=== PATIENT | male | born 1940 | race American Indian/Alaskan Native ===

== ENCOUNTER 2016-10-29 10:11 | Inpatient (IN) | payer MEDICARE, BC ==
[2016-10-29] MEDS ORDERED: Famotidine 20mg/50ml 20 MG/50 ML BAG IV STA (10:33)
--- NOTE | 2016-10-29 11:01 | RAD ---
HISTORY: cough COMPARISON: 04/25/2016. FINDINGS: The right-sided dialysis catheter terminates in the right atrium. LUNGS: The lungs are clear. PLEURA: No significant pleural effusion identified, no pneumothorax apparent. CARDIOVASCULAR: The heart is normal in size. Atherosclerotic aortic arch calcifications are present. . OSSEOUS STRUCTURES: No significant abnormalities. VISUALIZED UPPER ABDOMEN: Normal. OTHER FINDINGS: There is chronic elevation of the right hemidiaphragm. Surgical clips in the right upper quadrant are related to prior cholecystectomy. IMPRESSION: No active pulmonary disease.
--- NOTE | 2016-10-29 11:05 | ED PDOC ---
Arrival/HPI - General Chief Complaint: GI Problem Time Seen by Provider: 10/29/16 10:17 Historian: Patient - History of Present Illness Narrative History of Present Illness (Text): 10/29/16 11:10 A 76 year old male, whose past medical history includes GERD, presents to the emergency department after full dialysis treatment today complaining of abdominal pain, nausea and one episode of vomiting (non-bilious, non-bloody). Patient currently does not have abdominal pain or feel nauseous. Patient denies any other complaints at this time. Symptom Onset: Sudden Symptom Course: Improving Activities at Onset: Other (dialysis) Modifying Factors (Text): none Past Medical History - Provider Review Nursing Documentation Reviewed: Yes - Infectious Disease Hx of Infectious Diseases: None - Reproductive Currently : No - Cardiac Hx Cardiac Disorders: Yes Hx Hypertension: Yes - Pulmonary Hx Respiratory Disorders: Yes Hx Chronic Obstructive Pulmonary Disease (COPD): Yes - Neurological Hx Neurological Disorder: Yes HX Cerebrovascular Accident: Yes (L side hemiparesis) - HEENT Hx HEENT Disorder: No - Renal Hx Renal Disorder: Yes Date of Last Dialysis Treatment: 10/29/16 Hx Renal Failure: Yes (ESRD, CKD) - Endocrine/Metabolic Hx Endocrine Disorders: Yes Hx Diabetes Mellitus Type 2: Yes - Hematological/Oncological Hx Blood Disorders: Yes Hx Anemia: Yes - Integumentary Hx Dermatological Disorder: No - Musculoskeletal/Rheumatological Hx Musculoskeletal Disorders: Yes Hx Arthritis: Yes (Spinal Arthritis) - Gastrointestinal Hx Gastrointestinal Disorders: Yes Hx Gall Bladder Disease: Yes (Cholecystectomy) - Genitourinary/Gynecological Hx Genitourinary Disorders: No - Psychiatric Hx Psychophysiologic Disorder: No Hx Substance Use: No - Surgical History Hx Appendectomy: Yes Hx Carotid Endarterectomy: Yes (bilat) Hx Cholecystectomy: Yes Hx Coronary Stent: Yes Other/Comment: LEFT aka - Anesthesia Hx Anesthesia: Yes Hx Anesthesia Reactions: No Hx Malignant Hyperthermia: No - Suicidal Assessment Feels Threatened In Home Enviroment: No Family/Social History - Physician Review Nursing Documentation Reviewed: Yes Family/Social History: No Known Family HX Smoking Status: Former Smoker Hx Alcohol Use: No Hx Substance Use: No Allergies/Home Meds Allergies/Adverse Reactions: Allergies No Known Allergies Allergy (Verified 04/25/16 14:43) Home Medications: Home Meds Medication Instructions Recorded Confirmed B Complex W-C No.20/Folic Acid 1 sgl PO DAILY 10/29/16 10/29/16 [Renal Caps] RX: Calcium Acetate [Phoslo] 667 mg PO TID 10/29/16 10/29/16 RX: Pantoprazole [Protonix EC Tab] 20 mg PO DAILY 10/29/16 10/29/16 Review of Systems - Physician Review All systems were reviewed & negative as marked: Yes Physical Exam - Physical Exam Narrative Physical Exam (Text): 10/29/16 11:05- Review of Systems Constitutional: Normal. absent: Fatigue, Weight Change, Fevers Eyes: Normal ENT: Normal Respiratory: Normal absent: SOB, Cough, Sputum Cardiovascular: Normal absent: Chest pain, Palpitations, Syncope Gastrointestinal: Present: abdominal pain, nausea, vomiting absent: Diarrhea, Nausea Musculoskeletal: Normal. absent: Arthralgias, Back Pain, Neck Pain Skin: Normal Neurological: Normal absent: Focal Weakness Endocrine: Normal Hemo/Lymphatic: Normal Psychiatric: Normal - Physical exam Patient appears age appropriate, speaking full sentences without difficulty - Systems Exam Head: Present: Atraumatic, Normocephalic Pupils: Present: PERRL Extraocular Muscles: Present: EOMI Conjunctiva: Present: Normal Mouth: Present: Moist Mucous Membranes Neck: Present: Normal Range of Motion. No: MIDLINE TENDERNESS, Paraspinal Tenderness Respiratory/Chest: Present: Clear to Auscultation, Good Air Exchange. No: Respiratory Distress, Accessory Muscle Use, Tachypnic Cardiovascular: Present: Regular Rate and Rhythm, Normal S1, S2, Peripheral Pulses Present. No: Murmurs Abdomen: Present: Normal Bowel Sounds, No: Tenderness, Peritoneal Signs, Rebound, Guarding, Distention Back: Present: Normal Inspection. No: Midline Tenderness, Paraspinal Tenderness Upper Extremity: Present: Normal Inspection. No: Cyanosis, Edema Lower Extremity: Present: Normal Inspection. No: Edema Neurological: Present: GCS=15, Speech Normal, cranial nerves II through XII fully intact with no cerebellar abnormality, neuro-sensory fully intact. No focal neurological deficits. Skin: Present: Warm, Dry, Normal Color. No: Rashes Lymphatic: Present: OX3, NI, NC Psychiatric: Present: Alert, Oriented x 3, Normal Insight, Normal Concentration Vital Signs Reviewed: Yes Vital Signs Temp Pulse Resp BP Pulse Ox 10/29/16 14:02 64 18 142/69 99 10/29/16 12:34 61 18 144/71 99 10/29/16 11:36 61 16 154/82 H 98 10/29/16 10:40 98.8 F 62 18 147/62 99 Temperature: Afebrile Blood Pressure: Normal Pulse: Regular Respiratory Rate: Normal Appearance: Positive for: Well-Appearing, Non-Toxic, Comfortable Pain Distress: None Mental Status: Positive for: Alert and Oriented X 3 Medical Decision Making ED Course and Treatment: 10/29/16 10:52 Impression: A 76 year old male with abdominal pain and vomiting. No acute findings on physical exam. Plan: -- EKG -- CT abd/pelvis -- chest xray -- labs -- Pepcid, Zofran -- Reassess and disposition Prior Visits: Notes and results from previous visits were reviewed. Patient last reported to the emergency department on 04/25/16 for evaluation of worsening ulcers, patient was hospitalized. Patient was discharged on 05/02/16. Progress Notes: chest xray: Creator : Kalie Caraballo MD 10/29/2016 11:02 IMPRESSION: No active pulmonary disease. 10/29/16 12:28 Patient's EKG shows 59 bpm, sinus bradycardia, no ST segment elevations, T-wave inversions in lateral leads. No significant change versus 02/29/16. CT abd/pelvis Creator : Deny Adams MD 10/29/2016 12:46 IMPRESSION: No acute findings. 10/29/16 15:05 lipase elevated pt with no abd pain at this time pt states he has no PMD [place] [facility] [place] Helms, accepted admission to his service pt aware of and agrees with plan Deny Mora Dr., Dr., MD PROCEDURE: CT Abdomen and Pelvis without intravenous contrast HISTORY: n/v/abd pain COMPARISON: None. TECHNIQUE: Without contrast.. Contrast Dose: Radiation dose: Total exam DLP = 353 mGy-cm. This CT exam was performed using one or more of the following dose reduction techniques: Automated exposure control, adjustment of the mA and/or kV according to patient size, and/or use of iterative reconstruction technique. FINDINGS: LOWER THORAX: Unremarkable. LIVER: Unremarkable. No gross lesion or ductal dilatation. GALLBLADDER AND BILE DUCTS: Gallbladder removed PANCREAS: Unremarkable. No gross lesion or ductal dilatation. SPLEEN: Unremarkable. ADRENALS: Unremarkable. No mass. KIDNEYS AND URETERS: Unremarkable. No hydronephrosis. No solid mass. VASCULATURE: There is heavy calcification of the aorta and aortic branches BOWEL: Unremarkable. No obstruction. No gross mural thickening. APPENDIX: Unremarkable. Normal appendix. PERITONEUM: Unremarkable. No free fluid. No free air. LYMPH NODES: Unremarkable. No enlarged lymph nodes. BLADDER: Unremarkable. REPRODUCTIVE: Unremarkable. BONES: No acute fracture. OTHER FINDINGS: None. IMPRESSION: No acute findings - Lab Interpretations Lab Results: 10/29/16 11:10 10/29/16 11:10 Lab Results 10/29/16 11:10: Lipase 1809 H 10/29/16 11:10: PT 11.7, INR 1.08, APTT 29.3 10/29/16 11:10: Sodium 141, Potassium 4.1, Chloride 98, Carbon Dioxide 32, Anion Gap 15, BUN 26 H, Creatinine 4.4 H, Est GFR ( Amer) 16, Est GFR ( Non-Af Amer) 13, Random Glucose 107, Calcium 9.6, Total Bilirubin 1.4 H, AST 303 H, ALT 149 H, Alkaline Phosphatase 102, Lactate Dehydrogenase 987 H, Total Creatine Kinase 72, Troponin I 0.03, Total Protein 7.8, Albumin 4.3, Globulin 3.5, Albumin/Globulin Ratio 1.2 10/29/16 11:10: WBC 9.9, RBC 3.37 L, Hgb 11.3 L, Hct 33.8 L, MCV 100.3, MCH 33.5 , MCHC 33.4, RDW 13.9, Plt Count 243, MPV 9.7, Gran % 79.0 H, Lymph % (Auto) 11.3 L, [place] % (Auto) 7.4 H, Eos % (Auto) 2.0, Baso % (Auto) 0.3, Gran # 7.83 H , Lymph # 1.1 L, [place] # 0.7 H, Eos # 0.2, Baso # 0.03 I have reviewed the lab results: Yes - RAD Interpretation Radiology Orders: 10/29/16 10:32 ABD & PELVIS W/O PO OR IV CONT [CT] Stat 10/29/16 10:33 CHEST PORTABLE [RAD] Stat - EKG Interpretation Interpreted by ED Physician: Yes Type: 12 lead EKG - Medication Orders Current Medication Orders: Discontinued Medications Famotidine (Pepcid 20mg/50ml Premix) 20 mg in 50 mls @ 100 mls/hr IV STAT STA Stop: 10/29/16 11:02 Last Admin: 10/29/16 11:10 Dose: 100 mls/hr Ondansetron HCl (Zofran Inj) 4 mg IVP STAT STA Stop: 10/29/16 10:34 Last Admin: 10/29/16 11:10 Dose: 4 mg Ondansetron HCl (Zofran Inj) 4 mg IVP STAT STA Stop: 10/29/16 13:10 Last Admin: 10/29/16 13:55 Dose: 4 mg - Scribe Statement The provider has reviewed the documentation as recorded by the Vinny Mccarty Provider Scribe Attestation: All medical record entries made by the Diomedesibe were at my direction and personally dictated by me. I have reviewed the chart and agree that the record accurately reflects my personal performance of the history, physical exam, medical decision making, and the department course for this patient. I have also personally directed, reviewed, and agree with the discharge instructions and disposition. Disposition/Present on Arrival - Present on Arrival Any Indicators Present on Arrival: No History of DVT/PE: No History of Uncontrolled Diabetes: Yes Urinary Catheter: No History of Decub. Ulcer: No History Surgical Site Infection Following: None - Disposition Have Diagnosis and Disposition been Completed?: Yes Diagnosis: Pancreatitis Disposition: HOSPITALIZED Disposition Time: 15:11 Patient Plan: Admission Condition: FAIR Referrals: Freddie Adams, [Primary Care Provider] - Follow up with primary
[2016-10-29 11:18] LABS: ADD MANUAL DIFF? NO
[2016-10-29 11:22] LABS: BASO # 0.03 K/mm3 (0.0-2.0); BASO % 0.3 % (0.0-3.0); EOS # 0.2 (0.0-0.7); GRAN # 7.83 (1.4-6.5); HEMATOCRIT 33.8 % (42.0-52.0); LYMPH # 1.1 (1.2-3.4); LYMPH % 11.3 % (22.0-35.0); MEAN CELL VOLUME 100.3 fL (80.0-105.0); MEAN CORPUSCULAR HEMOGLOBIN 33.5 pg (25.0-35.0); MEAN CORPUSCULAR HGB CONC 33.4 g/dl (31.0-37.0); MEAN PLATELET VOLUME 9.7 fl (7.0-11.0); MONO # 0.7 (0.1-0.6); MONO % 7.4 % (1.0-6.0); PLATELET COUNT 243 10^3/uL (120.0-450.0); RED CELL DISTRIBUTION WIDTH 13.9 % (11.5-14.5); WHITE BLOOD COUNT 9.9 10^3/ul (4.5-11.0)
[2016-10-29 11:29] LABS: ALB/GLOB RATIO 1.2 (1.1-1.8); BILIRUBIN,TOTAL 1.4 mg/dL (0.2-1.3); CALCIUM 9.6 mg/dL (8.4-10.5); POTASSIUM 4.1 mmol/L (3.6-5.0); TOTAL PROTEIN 7.8 g/dL (5.8-8.3)
[2016-10-29 11:31] LABS: INR 1.08 (0.93-1.08); PARTIAL THROMBOPLASTIN TIME 29.3 Seconds (23.7-30.8)
[2016-10-29 11:42] LABS: TROPONIN I 0.03 ng/mL
--- NOTE | 2016-10-29 12:45 | CT ---
PROCEDURE: CT Abdomen and Pelvis without intravenous contrast HISTORY: n/v/abd pain COMPARISON: None. TECHNIQUE: Without contrast.. Contrast Dose: Radiation dose: Total exam DLP = 353 mGy-cm. This CT exam was performed using one or more of the following dose reduction techniques: Automated exposure control, adjustment of the mA and/or kV according to patient size, and/or use of iterative reconstruction technique. FINDINGS: LOWER THORAX: Unremarkable. LIVER: Unremarkable. No gross lesion or ductal dilatation. GALLBLADDER AND BILE DUCTS: Gallbladder removed PANCREAS: Unremarkable. No gross lesion or ductal dilatation. SPLEEN: Unremarkable. ADRENALS: Unremarkable. No mass. KIDNEYS AND URETERS: Unremarkable. No hydronephrosis. No solid mass. VASCULATURE: There is heavy calcification of the aorta and aortic branches BOWEL: Unremarkable. No obstruction. No gross mural thickening. APPENDIX: Unremarkable. Normal appendix. PERITONEUM: Unremarkable. No free fluid. No free air. LYMPH NODES: Unremarkable. No enlarged lymph nodes. BLADDER: Unremarkable. REPRODUCTIVE: Unremarkable. BONES: No acute fracture. OTHER FINDINGS: None. IMPRESSION: No acute findings
--- NOTE | 2016-10-29 15:57 | CP.PCM.HP ---
<Deion Real - Last Filed: 10/30/16 10:50> History of Present Illness - History of Present Illness History of Present Illness: H&P for Dr. Helms/Dr. Parks service - Deion Addie PGY1 HPI: Patient is a 76yo male with past medical history that includes ESRD on hemodialysis (Fri//Fri), hypertension, DM type 2, chronic sacral ulcers, dementia that presents [place] dialysis session [place] [facility] [place] complaints of epigastric abdominal pain, nausea, and one episode of non-bilious, non-bloody vomiting. Patient was at hemodialysis earlier in the day and reported feeling unwell. He had completed his session and was brought down to the ED for further evaluation. Initial labs were notable for a total bilirubin of 1.4, AST 303, ALT 149, lipase 1809. CT abdomen/pelvis without IV contrast revealed no acute findings. CXR revealed no active disease. EKG showed sinus bradycardia with left axis deviation, no ST elevations and T wave inversions of the lateral leads that were unchanged from prior EKG's. The patient was subsequently admitted for further evaluation/treatment of pancreatitis. At the time of examination, he denied abdominal pain, fever, chills, chest pain, palpitations, SOB, melena, hematochezia, sick contacts. 12 point ROS negative unless stated otherwise above PMHx: ESRD on HD (//Fri), HTN, DM2, chronic sacral ulcers, dementia PSHx: left AKA, history of carotid endarterectomy, cholecystectomy, Right jugular catheter placement for dialysis Allergies: NKDA Family Hx: Noncontributory Social Hx: Former heavy smoker (~40ppy); Lives with his (Ms. Joyce Pizano [phone]) PMD: Dr. Tommy Longo Present on Admission - Present on Admission Any Indicators Present on Admission: No Past Patient History - Infectious Disease Hx of Infectious Diseases: None - Past Medical History & Family History Past Medical History?: Yes - Past Social History Smoking Status: Former Smoker - CARDIAC Hx Cardiac Disorders: Yes Hx Hypertension: Yes - PULMONARY Hx Respiratory Disorders: Yes Hx Chronic Obstructive Pulmonary Disease (COPD): Yes - NEUROLOGICAL Hx Neurological Disorder: Yes HX Cerebrovascular Accident: Yes (L side hemiparesis) - HEENT Hx HEENT Problems: No - RENAL Hx Chronic Kidney Disease: Yes Date of Last Dialysis Treatment: 10/29/16 Hx Renal Failure: Yes (ESRD, CKD) - ENDOCRINE/METABOLIC Hx Endocrine Disorders: Yes Hx Diabetes Mellitus Type 2: Yes - HEMATOLOGICAL/ONCOLOGICAL Hx Blood Disorders: Yes Hx Anemia: Yes - INTEGUMENTARY Hx Dermatological Problems: No - MUSCULOSKELETAL/RHEUMATOLOGICAL Hx Musculoskeletal Disorders: Yes Hx Arthritis: Yes (Spinal Arthritis) - GASTROINTESTINAL Hx Gastrointestinal Disorders: Yes Hx Gall Bladder Disease: Yes (Cholecystectomy) - GENITOURINARY/GYNECOLOGICAL Hx Genitourinary Disorders: No - PSYCHIATRIC Hx Psychophysiologic Disorder: No Hx Substance Use: No - SURGICAL HISTORY Hx Appendectomy: Yes Hx Carotid Endarterectomy: Yes (bilat) Hx Cholecystectomy: Yes Hx Coronary Stent: Yes Other/Comment: LEFT aka - ANESTHESIA Hx Anesthesia: Yes Hx Anesthesia Reactions: No Hx Malignant Hyperthermia: No Meds Allergies/Adverse Reactions: Allergies Allergy/AdvReac Type Severity Reaction Status Date / Time No Known Allergies Allergy Verified 10/29/16 22:52 Physical Exam - Constitutional Appears: Non-toxic, No Acute Distress - Head Exam Head Exam: ATRAUMATIC, NORMAL INSPECTION, NORMOCEPHALIC - Eye Exam Eye Exam: EOMI, PERRL - Neck Exam Neck exam: Positive for: Normal Inspection. Negative for: Tenderness - Respiratory Exam Respiratory Exam: Clear to Auscultation Bilateral. absent: Rales, Rhonchi, Wheezes - Cardiovascular Exam Cardiovascular Exam: +S1, +S2. absent: Gallop, Rubs - GI/Abdominal Exam GI & Abdominal Exam: Hypoactive Bowel Sounds, Soft. absent: Distended, Firm, Guarding, Tenderness - Extremities Exam Additional comments: left AKA - Neurological Exam Neurological exam: Alert, Oriented x3 - Psychiatric Exam Psychiatric exam: Normal Affect, Normal Mood - Skin Skin Exam: Dry, Intact, Normal Color, Warm Results - Vital Signs Recent Vital Signs: Last Vital Signs Temp 98.8 F 10/29/16 10:40 Pulse 56 L 10/29/16 15:31 Resp 18 10/29/16 15:31 BP 130/56 L 10/29/16 15:31 Pulse Ox 99 10/29/16 15:31 - Labs Result Diagrams: 10/30/16 07:30 10/30/16 07:00 Assessment & Plan - Assessment and Plan (Free Text) Plan: 76yo male with history of ESRD, HTN, DM2 presents post dialysis treatment with epigastric abdominal pain, nausea and vomiting. Admitted for further treatment of pancreatitis. 1. Acute pancreatitis -CT abd/pelvis revealed no acute pathology -CXR revealed no active disease -Lipase 1809 -afebrile, no leukocytosis -GI consulted - Dr. Maya -Abdominal US pending -IVF @ 70cc/hr due to ESRD -NPO 2. ESRD on hemodialysis -Nephrology consulted - Dr. Meyer 3. Hypertension -Continue home medication 4. Diabetes type 2 -Fingersticks ACHS -Insulin low dose sliding scale when diet advanced -NPO for the present time 5. GI/DVT prophylaxis -protonix/heparin Case discussed with attending, Dr. Helms - Date & Time Date: 10/29/16 Time: 16:08 <Erasto Helms - Last Filed: 11/29/16 09:38> Results - Vital Signs Recent Vital Signs: Last Vital Signs Temp 98 F 10/31/16 16:00 Pulse 60 10/31/16 17:08 Resp 16 10/31/16 16:00 BP 111/53 L 10/31/16 17:08 Pulse Ox 96 10/31/16 16:00 - Labs Result Diagrams: 10/31/16 06:05 10/31/16 06:05 Attending/Attestation - Attestation I have personally seen and examined this patient.: Yes I have fully participated in the care of the patient.: Yes I have reviewed all pertinent clinical information: Yes Notes (Text): 11/29/16 09:38 11/29/16 09:23 Medical note made by resident after discussion with my direction and input after patient personally seen by me. I have reviewed the chart and agree that the record reflects my personal performance of the history, physical, data review and decision making.
[2016-10-29 16:16] LABS: CHOLESTEROL 184 mg/dL (130-200)
[2016-10-29] MEDS: Insulin Reg-LOW-Coverage SC SCH ×2 (17:11→21:52)
[2016-10-29] MEDS: Sodium Chloride 0.9% 1,000 ML IV SCH (17:14)
--- NOTE | 2016-10-29 18:55 | US ---
HISTORY: transaminits; elevated lipase COMPARISON: 10/02/2014 TECHNIQUE: Sonographic evaluation of the abdomen. FINDINGS: LIVER: Measures 14.7 cm. Patent portal vein. Portal venous flow: Hepatopetal. Unremarkeable echogenicity of the liver parenchyma. No mass. No intrahepatic bile duct dilatation. GALLBLADDER: Status post cholecystectomy. No abnormality is seen in the gallbladder fossa. COMMON BILE DUCT: Measures 4.8 mm. No stones. No dilatation. PANCREAS: Obscured by overlying bowel gas. Non diagnostic assessment of the pancreas RIGHT KIDNEY: Measures 3.9 x 7.3cm. Normal echogenicity. No calculus, mass, or hydronephrosis. LEFT KIDNEY: Measures 4.0 x 7.8cm. Normal echogenicity. No calculus, mass, or hydronephrosis. SPLEEN: Normal in size and contour. No mass. AORTA: No aneurysmal dilatation. IVC: Unremarkable. OTHER FINDINGS: None. IMPRESSION: No acute findings related to/accounting for the clinical presentation. No significant interval change compared to the prior examination(s).
[2016-10-29 23:39] VITALS: BMI 18.3
[2016-10-29] MEDS ORDERED: Pneumococcal 23-Valent Vaccine IM ONE (23:39)
[2016-10-30] MEDS: Sodium Chloride 0.9% 1,000 ML IV SCH (06:03)
[2016-10-30 07:39] LABS: ADD MANUAL DIFF? NO
[2016-10-30 07:44] LABS: BASO # 0.05 K/mm3 (0.0-2.0); BASO % 0.9 % (0.0-3.0); EOS # 0.3 (0.0-0.7); EOS % 5.9 % (1.5-5.0); GRAN # 2.26 (1.4-6.5); GRAN % 42.8 % (50.0-68.0); HEMATOCRIT 32.8 % (42.0-52.0); LYMPH # 2.1 (1.2-3.4); LYMPH % 39.6 % (22.0-35.0); MEAN CELL VOLUME 102.8 fL (80.0-105.0); MEAN CORPUSCULAR HEMOGLOBIN 33.2 pg (25.0-35.0); MEAN CORPUSCULAR HGB CONC 32.3 g/dl (31.0-37.0); MEAN PLATELET VOLUME 9.4 fl (7.0-11.0); MONO # 0.6 (0.1-0.6); MONO % 10.8 % (1.0-6.0); PLATELET COUNT 220 10^3/uL (120.0-450.0); RED CELL DISTRIBUTION WIDTH 14.1 % (11.5-14.5); WHITE BLOOD COUNT 5.3 10^3/ul (4.5-11.0)
--- NOTE | 2016-10-30 07:58 | CP.PCM.CON ---
<Sarah Hidalgo - Last Filed: 10/30/16 10:42> History of Present Illness - History of Present Illness History of Present Illness: GI consult note 76 year old male with past medical history of ESRD on HD (), HTN, DM chronic sacral ulcers, dementia and cholecystectomy 10 yrs ago presented to ED for epigastric pain that began during dialysis. Patient finished dialysis and then was brought down to ED for further evaluation. Patient states that he has been having epigastric pain for about 2 weeks progressively worsening. Patient denies having any N/V/D/C, fevers or chills. Patient denies any radiation of pain. Patient states that he drinks about 1-6 shots weekly of liquor. Last drink was last week. In ED, patient was found to have elevated LFTs (AST 303, AST 149) and elevated lipase at 1809. Abdominal US showed normal pancreas and liver with no CBD stones visualized. CT of abd was also unremarkable. 12 point ROS are negative except for the above mentioned. PMHx: stated above PSHx: left AKA, history of carotid endarterectomy, cholecystectomy, Right jugular catheter placement for dialysis Allergies: NKDA Social; former smoker, ETOH use on weekly basis, denies drug use Past Patient History - Infectious Disease Hx of Infectious Diseases: None - Past Medical History & Family History Past Medical History?: Yes - Past Social History Smoking Status: Former Smoker Chewing Tobacco Use: No Cigar Use: No Alcohol: Other (weekly) Drugs: Denies Home Situation {Lives}: With Family - CARDIAC Hx Cardiac Disorders: Yes Hx Hypertension: Yes - PULMONARY Hx Respiratory Disorders: Yes Hx Chronic Obstructive Pulmonary Disease (COPD): Yes - NEUROLOGICAL Hx Neurological Disorder: Yes HX Cerebrovascular Accident: Yes (L side hemiparesis) - HEENT Hx HEENT Problems: No - RENAL Hx Chronic Kidney Disease: Yes Date of Last Dialysis Treatment: 10/29/16 Hx Renal Failure: Yes (ESRD, CKD) - ENDOCRINE/METABOLIC Hx Endocrine Disorders: Yes Hx Diabetes Mellitus Type 2: Yes - HEMATOLOGICAL/ONCOLOGICAL Hx Blood Disorders: Yes Hx Anemia: Yes - INTEGUMENTARY Hx Dermatological Problems: No Other/Comment: 10-29-16 SCARRING TO SACRAL AREA.HEALED PRESSURE ULCER.RIGHT HEEL, LEFT LOWER ABDOMINAL AREA,NF SHUNT TO LEFT UPPER ARM. HAS A RIGHT UDALL. - MUSCULOSKELETAL/RHEUMATOLOGICAL Hx Musculoskeletal Disorders: Yes Hx Arthritis: Yes (Spinal Arthritis) Hx Falls: Yes - GASTROINTESTINAL Hx Gastrointestinal Disorders: Yes Hx Gall Bladder Disease: Yes (Cholecystectomy) - GENITOURINARY/GYNECOLOGICAL Hx Genitourinary Disorders: No - PSYCHIATRIC Hx Psychophysiologic Disorder: No Hx Substance Use: No - SURGICAL HISTORY Hx Surgeries: Yes (RIGHT CHEST WAL UDALL,NF SHUNT TO LEFT UPPER ARM.) Hx Appendectomy: Yes Hx Cholecystectomy: Yes Hx Coronary Stent: Yes Other/Comment: LEFT aka - ANESTHESIA Hx Anesthesia: Yes Hx Anesthesia Reactions: No Hx Malignant Hyperthermia: No Meds Allergies/Adverse Reactions: Allergies Allergy/AdvReac Type Severity Reaction Status Date / Time No Known Allergies Allergy Verified 10/29/16 22:52 - Medications Medications: Current Medications Amlodipine Besylate (Norvasc) 10 mg PO DAILY [facility] Aspirin (Ecotrin) 81 mg PO DAILY [facility] Calcium Acetate (Phoslo) 667 mg PO TID [facility] Last Admin: 10/29/16 17:11 Dose: Not Given Carvedilol (Coreg) 25 mg PO BID [facility] Last Admin: 10/29/16 19:28 Dose: Not Given Heparin Sodium (Porcine) (Heparin) 5,000 units SC Q12 [facility] PRN Reason: Protocol Last Admin: 10/29/16 21:04 Dose: 5,000 units Hydralazine HCl (Apresoline) 50 mg PO BID [facility] Sodium Chloride (Sodium Chloride 0.9%) 1,000 mls @ 70 mls/hr IV .[id number] [facility] Last Admin: 10/30/16 06:03 Dose: 70 mls/hr Insulin Human Regular (Humulin R Low) 0 units SC ACHS [facility] PRN Reason: Protocol Last Admin: 10/29/16 21:52 Dose: Not Given Isosorbide Mononitrate (Imdur) 30 mg PO DAILY [facility] Losartan Potassium (Cozaar) 100 mg PO DAILY [facility] Ondansetron HCl (Zofran Inj) 4 mg IVP Q6H PRN PRN Reason: Nausea/Vomiting Pantoprazole Sodium (Protonix Inj) 40 mg IVP DAILY [facility] Vitamin B Complex/Vit C/Folic Acid (Nephro-Luis) 1 tab PO DAILY [facility] Physical Exam - Constitutional Appears: Non-toxic, No Acute Distress - Head Exam Head Exam: ATRAUMATIC - Eye Exam Eye Exam: EOMI - ENT Exam ENT Exam: Mucous Membranes Moist - Respiratory Exam Respiratory Exam: Clear to Auscultation Bilateral, NORMAL BREATHING PATTERN. absent: Accessory Muscle Use, Rales, Rhonchi, Wheezes, Respiratory Distress - Cardiovascular Exam Cardiovascular Exam: REGULAR RHYTHM, +S1, +S2. absent: Diastolic murmur, Gallop , Rubs, Systolic Murmur - GI/Abdominal Exam GI & Abdominal Exam: Normal Bowel Sounds, Soft. absent: Distended, Firm, Guarding, Organomegaly, Rigid, Tenderness - Extremities Exam Extremities exam: Negative for: pedal edema, tenderness - Neurological Exam Neurological exam: Alert, Oriented x3 - Psychiatric Exam Psychiatric exam: Normal Affect, Normal Mood - Skin Skin Exam: Dry, Intact, Normal Color, Warm Results - Vital Signs Recent Vital Signs: Last Vital Signs Temp 98.3 F 10/29/16 23:18 Pulse 53 L 10/29/16 23:18 Resp 18 10/29/16 23:18 BP 159/62 H 10/29/16 23:18 Pulse Ox 96 10/29/16 16:45 - Labs Result Diagrams: 10/30/16 07:30 10/30/16 07:00 Labs: Laboratory Results - last 24 hr 10/29/16 10/29/16 10/30/16 17:00 21:34 07:30 WBC 5.3 D RBC 3.19 L Hgb 10.6 L Hct 32.8 L MCV 102.8 MCH 33.2 MCHC 32.3 RDW 14.1 Plt Count 220 MPV 9.4 Gran % 42.8 L Lymph % (Auto) 39.6 H Graham % (Auto) 10.8 H Eos % (Auto) 5.9 H Baso % (Auto) 0.9 Gran # 2.26 Lymph # 2.1 Graham # 0.6 Eos # 0.3 Baso # 0.05 POC Glucose (mg/dL) 95 77 Assessment & Plan - Assessment and Plan (Free Text) Assessment: 76 year old male with past medical history of DM2, HTN, ESRD on HD, chronic sacral ulcer, dementia, ETOH abuse and cholcystectomy about 10 years ago is admitted to hospital for acute pancreatitis likely secondary to ETOH abuse. Patient had epigastric pain with questionable radiation to back and lipase on admission was 1809. US of abdomen showed normal pancreas and no CBD stones, basically unremarkable. CT of abdomen was also unremarkable. Lipid panel is negative. Patient is also found to have transaminitis also likely secondary to ETOH abuse. AST is noted ot be 303 and ALT is 149. T bili is 1.4. After reviewing previous records, patient did have history of elevated LFTs in the past (01/2016) but at that time, most likely due to MRSA bacteremia. At that time , hepatitis panel was negative. Acute pancreatitis likely due to ETOH - Improved pain. Advanced diet to CLD. Will advance further as patient tolerates. - NS at 70 cc. Fluid resuscitation cautiously due ot ESRD - Will check for autoimmune pancreatitis Transaminits likely due to ETOH - Avoid hepatotoxic drugs - Will check for autoimmune hepatits: Smooth muscle Ab, mitochondrial Ab, MALLORY, Ig G, A, M, live kidney AGUSTINA Ab - Previously negative hep panel on 01/2016 Macrocytic anemia - Will check iron studies, folate and vit B 12 Case discussed with attending, Dr. Lee. - Date & Time Date: 10/30/16 Time: 07:59 <Jhony Lee MD - Last Filed: 10/30/16 14:05> Meds - Medications Medications: Current Medications Amlodipine Besylate (Norvasc) 10 mg PO DAILY [facility] Last Admin: 10/30/16 10:23 Dose: 10 mg Aspirin (Ecotrin) 81 mg PO DAILY [facility] Last Admin: 10/30/16 10:23 Dose: 81 mg Calcium Acetate (Phoslo) 667 mg PO TID [facility] Last Admin: 10/30/16 13:39 Dose: 667 mg Carvedilol (Coreg) 25 mg PO BID [facility] Last Admin: 10/30/16 10:23 Dose: 25 mg Heparin Sodium (Porcine) (Heparin) 5,000 units SC Q12 [facility] PRN Reason: Protocol Last Admin: 10/30/16 10:22 Dose: 5,000 units Hydralazine HCl (Apresoline) 50 mg PO BID [facility] Insulin Human Regular (Humulin R Low) 0 units SC ACHS [facility] PRN Reason: Protocol Last Admin: 10/30/16 13:36 Dose: Not Given Isosorbide Mononitrate (Imdur) 30 mg PO DAILY [facility] Last Admin: 10/30/16 10:23 Dose: 30 mg Losartan Potassium (Cozaar) 100 mg PO DAILY [facility] Last Admin: 10/30/16 10:23 Dose: 100 mg Ondansetron HCl (Zofran Inj) 4 mg IVP Q6H PRN PRN Reason: Nausea/Vomiting Pantoprazole Sodium (Protonix Inj) 40 mg IVP DAILY [facility] Last Admin: 10/30/16 10:20 Dose: 40 mg Tramadol HCl (Ultram) 50 mg PO TID [facility] PRN Reason: Pain, severe (8-10) Last Admin: 10/30/16 12:47 Dose: 50 mg Vitamin B Complex/Vit C/Folic Acid (Nephro-Luis) 1 tab PO DAILY [facility] Last Admin: 10/30/16 10:23 Dose: 1 tab Results - Vital Signs Recent Vital Signs: Last Vital Signs Temp 98.6 F 10/30/16 08:16 Pulse 85 10/30/16 10:23 Resp 18 10/30/16 08:16 BP 153/85 H 10/30/16 10:23 Pulse Ox 95 10/30/16 08:16 - Labs Result Diagrams: 10/30/16 07:30 10/30/16 07:00 Labs: Laboratory Results - last 24 hr 10/29/16 10/29/16 10/30/16 17:00 21:34 07:00 WBC RBC Hgb Hct MCV MCH MCHC RDW Plt Count MPV Gran % Lymph % (Auto) Graham % (Auto) Eos % (Auto) Baso % (Auto) Gran # Lymph # Graham # Eos # Baso # Sodium 143 Potassium 4.9 Chloride 104 Carbon Dioxide 24 Anion Gap 20 BUN 41 H Creatinine 6.2 H Est GFR ( Amer) 11 Est GFR (Non-Af Amer) 9 POC Glucose (mg/dL) 95 77 Random Glucose 65 L Calcium 9.2 Phosphorus 6.5 H Magnesium 1.9 Iron TIBC % Saturation Total Bilirubin 0.9 AST 215 H ALT 285 H Alkaline Phosphatase 82 Total Protein 6.7 Albumin 3.7 Globulin 3.0 Albumin/Globulin Ratio 1.2 Amylase 146 H Lipase 215 TSH 3rd Generation 10/30/16 10/30/16 10/30/16 07:00 07:30 07:53 WBC 5.3 D RBC 3.19 L Hgb 10.6 L Hct 32.8 L MCV 102.8 MCH 33.2 MCHC 32.3 RDW 14.1 Plt Count 220 MPV 9.4 Gran % 42.8 L Lymph % (Auto) 39.6 H Graham % (Auto) 10.8 H Eos % (Auto) 5.9 H Baso % (Auto) 0.9 Gran # 2.26 Lymph # 2.1 Graham # 0.6 Eos # 0.3 Baso # 0.05 Sodium Potassium Chloride Carbon Dioxide Anion Gap BUN Creatinine Est GFR ( Amer) Est GFR (Non-Af Amer) POC Glucose (mg/dL) 72 Random Glucose Calcium Phosphorus Magnesium Iron TIBC % Saturation Total Bilirubin AST ALT Alkaline Phosphatase Total Protein Albumin Globulin Albumin/Globulin Ratio Amylase Lipase TSH 3rd Generation 1.12 10/30/16 08:45 WBC RBC Hgb Hct MCV MCH MCHC RDW Plt Count MPV Gran % Lymph % (Auto) Graham % (Auto) Eos % (Auto) Baso % (Auto) Gran # Lymph # Graham # Eos # Baso # Sodium Potassium Chloride Carbon Dioxide Anion Gap BUN Creatinine Est GFR ( Amer) Est GFR (Non-Af Amer) POC Glucose (mg/dL) Random Glucose Calcium Phosphorus Magnesium Iron 80 TIBC 231 L % Saturation 35 Total Bilirubin AST ALT Alkaline Phosphatase Total Protein Albumin Globulin Albumin/Globulin Ratio Amylase Lipase TSH 3rd Generation Attending/Attestation - Attestation I have personally seen and examined this patient.: Yes I have fully participated in the care of the patient.: Yes I have reviewed all pertinent clinical information: Yes Notes (Text): 10/30/16 14:02 Patient seen with GI fellow and resident on GI rounds. Agree with assessment and plan. This is a 76 year old male with past medical history of DM2, HTN, ESRD on HD, chronic sacral ulcer, dementia, ETOH abuse and cholcystectomy about 10 years ago is admitted to hospital for acute pancreatitis likely secondary to ETOH abuse. Lipase was three times of upper limit of normal. US of abdomen showed normal pancreas and no CBD stones, basically unremarkable. CT of abdomen was also unremarkable. Lipid panel is negative. Patient is also found to have transaminemia also likely secondary to ETOH abuse although his AST/ALT ratio is reversed. Will be prudent to rule out autoimmune etiology. hepatitis serologies are negative. PD and CBD is normal on imaging . Improved pain. Can have low fat advanced diet and counseling on alcohol cessation. MCV macrocytic likely due to folic and thiamine deficiency. Needs close outpatient follow up.
[2016-10-30] MEDS: Insulin Reg-LOW-Coverage SC SCH ×4 (08:15→22:25)
[2016-10-30 09:13] LABS: ALB/GLOB RATIO 1.2 (1.1-1.8); BILIRUBIN,TOTAL 0.9 mg/dL (0.2-1.3); CALCIUM 9.2 mg/dL (8.4-10.5); MAGNESIUM 1.9 mg/dL (1.7-2.2); PHOSPHOROUS 6.5 mg/dL (2.5-4.5); POTASSIUM 4.9 mmol/L (3.6-5.0); TOTAL PROTEIN 6.7 g/dL (5.8-8.3)
--- NOTE | 2016-10-30 09:23 | CARD ---
APPROVED REPORT EKG Measurement Heart [id number] [place] [id number] [id number] <Conclusion> Sinus bradycardia Left axis deviation PRWP Voltage criteria for left ventricular hypertrophy T wave abnormality, consider lateral ischemia Prolonged QT
--- NOTE | 2016-10-30 09:26 | CP.PCM.PN ---
<Deion Real - Last Filed: 10/30/16 14:52> Subjective - Date & Time of Evaluation Date of Evaluation: 10/30/16 Time of Evaluation: 09:22 - Subjective Subjective: Medicine progress note for Dr. Helms/Dr. Parks service - Deion Real PGY1 Patient seen and examined at bedside this morning. No acute overnight events or new complaints reported. Patient states that he is very hungry this morning and was placed on a liquid diet per GI recommendations. Denies chest pain, palpitations, SOB. Objective - Vital Signs/Intake and Output Vital Signs (last 24 hours): Temp Pulse Resp BP Pulse Ox 98.6 F 58 L 18 159/67 H 95 10/30/16 08:16 10/30/16 08:16 10/30/16 08:16 10/30/16 08:16 10/30/16 08:16 Intake and Output: 10/30/16 10/30/16 06:59 18:59 Intake Total 840 Balance 840 - Medications Medications: Current Medications Amlodipine Besylate (Norvasc) 10 mg PO DAILY [facility] Aspirin (Ecotrin) 81 mg PO DAILY [facility] Calcium Acetate (Phoslo) 667 mg PO TID [facility] Last Admin: 10/29/16 17:11 Dose: Not Given Carvedilol (Coreg) 25 mg PO BID [facility] Last Admin: 10/29/16 19:28 Dose: Not Given Heparin Sodium (Porcine) (Heparin) 5,000 units SC Q12 [facility] PRN Reason: Protocol Last Admin: 10/29/16 21:04 Dose: 5,000 units Hydralazine HCl (Apresoline) 50 mg PO BID [facility] Sodium Chloride (Sodium Chloride 0.9%) 1,000 mls @ 70 mls/hr IV .[id number] [facility] Last Admin: 10/30/16 06:03 Dose: 70 mls/hr Insulin Human Regular (Humulin R Low) 0 units SC ACHS [facility] PRN Reason: Protocol Last Admin: 10/30/16 08:15 Dose: Not Given Isosorbide Mononitrate (Imdur) 30 mg PO DAILY [facility] Losartan Potassium (Cozaar) 100 mg PO DAILY [facility] Ondansetron HCl (Zofran Inj) 4 mg IVP Q6H PRN PRN Reason: Nausea/Vomiting Pantoprazole Sodium (Protonix Inj) 40 mg IVP DAILY [facility] Vitamin B Complex/Vit C/Folic Acid (Nephro-Madison) 1 tab PO DAILY [facility] - Labs Labs: 10/30/16 07:30 PT 11.7 Seconds (9.9-11.8) 10/29/16 11:10 INR 1.08 (0.93-1.08) 10/29/16 11:10 APTT 29.3 Seconds (23.7-30.8) 10/29/16 11:10 - Constitutional Appears: Non-toxic, No Acute Distress - Head Exam Head Exam: ATRAUMATIC, NORMAL INSPECTION, NORMOCEPHALIC - Eye Exam Eye Exam: EOMI, PERRL - ENT Exam ENT Exam: Mucous Membranes Moist - Respiratory Exam Respiratory Exam: Clear to Ausculation Bilateral. absent: Rales, Rhonchi, Wheezes - Cardiovascular Exam Cardiovascular Exam: +S1, +S2. absent: Gallop, Rubs - GI/Abdominal Exam GI & Abdominal Exam: Soft. absent: Distended, Firm, Guarding, Rigid, Tenderness , Rebound - Neurological Exam Neurological Exam: Alert, Awake, Oriented x3 - Psychiatric Exam Psychiatric exam: Normal Affect, Normal Mood - Skin Skin Exam: Dry, Intact, Normal Color, Warm Assessment and Plan - Assessment and Plan (Free Text) Plan: 76yo male with history of ESRD, HTN, DM2 presents post dialysis treatment with epigastric abdominal pain, nausea and vomiting. Admitted for further treatment of pancreatitis. 1. Acute pancreatitis -CT abd/pelvis revealed no acute pathology -CXR revealed no active disease -Abdominal US revealed no acute pathology -Lipase 1809 on admission -afebrile, no leukocytosis -Patient started on liquid diet per GI recommendations; will advance slowly -Patient is currently pending further immunological workup for transaminitis; will follow up -GI consulted - Dr. Maya 2. ESRD on hemodialysis -Nephrology consulted - Dr. Meyer -Continue phoslo and nephro-madison 3. Hypertension -Continue losartan, hydralazine, imdur, norvasc 4. Diabetes type 2 -Fingersticks ACHS -Insulin low dose sliding scale 5. GI/DVT prophylaxis -protonix/heparin Patient seen, examined and plan/case discussed with attending, Dr. Helms <Erasto Helms - Last Filed: 11/29/16 09:38> Objective - Vital Signs/Intake and Output Vital Signs (last 24 hours): Temp Pulse Resp BP Pulse Ox 98 F 60 16 111/53 L 96 10/31/16 16:00 10/31/16 17:08 10/31/16 16:00 10/31/16 17:08 10/31/16 16:00 - Labs Labs: 10/31/16 06:05 10/31/16 06:05 PT 11.7 Seconds (9.9-11.8) 10/29/16 11:10 INR 1.08 (0.93-1.08) 10/29/16 11:10 APTT 29.3 Seconds (23.7-30.8) 10/29/16 11:10 Attending/Attestation - Attestation I have personally seen and examined this patient.: Yes I have fully participated in the care of the patient.: Yes I have reviewed all pertinent clinical information, including history, physical exam and plan: Yes Notes (Text): 11/29/16 09:38 11/29/16 09:23 Medical note made by resident after discussion with my direction and input after patient personally seen by me. I have reviewed the chart and agree that the record reflects my personal performance of the history, physical, data review and decision making.
[2016-10-30 10:00] LABS: IRON 80 ug/dL (45-180)
[2016-10-30] MEDS: Multivitamin Vitamin B Complex (Nephro-Vite) Tab PO SCH (10:23)
--- NOTE | 2016-10-30 12:27 | RAD ---
HISTORY: ESRD, looking for pulm vascular congestion COMPARISON: 10/29/2016 FINDINGS: LUNGS: No active pulmonary disease. PLEURA: There is elevation of the right hemidiaphragm unchanged. CARDIOVASCULAR: Normal. OSSEOUS STRUCTURES: No significant abnormalities. VISUALIZED UPPER ABDOMEN: Normal. OTHER FINDINGS: None. IMPRESSION: No active disease.
[2016-10-30] MEDS ORDERED: MethylPREDNISolone Depo 40 mg/ml Inj IM ONE (13:24)
[2016-10-30] MEDS ORDERED: Bupivacaine 0.5% Inj(30mL) IJ ONE (13:24)
--- NOTE | 2016-10-30 14:54 | RAD ---
PROCEDURE: Right Knee Radiographs. HISTORY: knee pain COMPARISON: None. FINDINGS: BONES: Normal. No fracture. JOINTS: Normal. No osteoarthritis. JOINT EFFUSION: None. OTHER FINDINGS: There is extensive vascular calcification IMPRESSION: No acute findings
--- NOTE | 2016-10-30 16:39 | CON ---
DATE: 10/30/2016 A 76-year-old male with past medical history of hypertension, diabetes, peripheral vascular disease, status post bilateral carotid endarterectomy, status post left AKA and ESRD on hemodialysis (TTS at [facility] with [facility] nephrology, Dr. Meyer). Presented to ED yesterday after dialysis with vomiting and abdominal pain that began while getting hemodialysis. Nephrology being consulted for maintenance of hemodialysis care. The patient reports being in his usual state of health until sometime towards the end of hemodialysis session when he started experiencing vomiting and abdominal pain and was therefore directed to go to the ER subsequently. The patient reports having had good appetite prior to symptoms beginning. Does give a history of alcohol use with as much as 6 shots of liquor weekly. The patient evaluated in the ED, found to have elevated lipase levels and subsequently admitted for acute pancreatitis. REVIEW OF SYSTEMS: CONSTITUTIONAL: Good appetite. No fevers, chills. HEENT: No blurry vision, no sore throat, runny nose. RESPIRATORY: Denies any shortness of breath. CARDIOVASCULAR: No chest pain or palpitations. GASTROINTESTINAL: As mentioned in HPI. GENITOURINARY: Makes scant amount of urine. No dysuria, no hematuria. MUSCULOSKELETAL: Gets right knee pain during therapy sessions, currently asymptomatic. NEUROLOGIC: No headaches, no dizziness. PSYCHIATRIC: Denies any dementia or anxiety. SKIN: Denies any itching or rashes. PHYSICAL EXAMINATION: VITAL SIGNS: This morning, blood pressure 159/62, heart rate 53, respirations 18, temperature 98.3, O2 sat 96% on room air. GENERAL: No distress. Alert and oriented x 3. Conversing coherently, in full sentences. HEENT: Moist mucous membranes. Nonicteric. CHEST: Clear to auscultation bilaterally. No rales, no rhonchi, no wheezes. HEART: S1, S2 normal, no murmurs, no gallops, no rubs. GASTROINTESTINAL: Abdomen is firm, nontender, nondistended. GENITOURINARY: No bladder distention. EXTREMITIES: No leg edema, status post left AKA. NEUROLOGIC: 5/5 strength in bilateral lower extremities, 5/5 in right upper extremity, 3/5 in left upper extremity. PSYCHIATRIC: Normal mood, normal affect. SKIN: Warm, no cyanosis. Good capillary refill. LABORATORIES: This morning, WBC 5.3, hemoglobin 10.6, hematocrit 32.8, platelets 220. Chemistry panel: Sodium 143, potassium 4.9, chloride 104, bicarb 24, BUN 41, creatinine 6.2, glucose 65, calcium 9.2, phosphorus 6.5, AST 215, ALT 285, lipase 215 down from 1809 yesterday, albumin 3.7. ASSESSMENT: 1. Acute pancreatitis, etiology unclear. Will check hemodialysis records to look for any hypotensive episodes as patient may have had some transient ischemia related to it. Otherwise appears to be symptomatically resolved with lipase levels having downtrended quickly. Agree with IV fluids with normal saline at 70 mL per hour. No evidence of volume excess on exam. Continue same for now. Will check chest x-ray to look for any pulmonary vascular congestion. 2. End-stage renal disease, on hemodialysis. The patient receiving routine hemodialysis TTS. Stable electrolyte and volume status. Will receive next session per routine on , tomorrow. 3. Hypertension. Blood pressure somewhat elevated on amlodipine 10 mg daily, carvedilol 25 mg b.i.d., hydralazine 50 mg b.i.d., Imdur 30 mg daily and losartan 100 mg daily. Continue the same. 4. Anemia. The patient with anemia secondary to end-stage renal disease. Hemoglobin at goal of 10-11 grams for end-stage renal disease patient. Iron replete per labs. Will continue with Aranesp per protocol. 5. Chronic kidney disease mineral bone disease. The patient with hyperphosphatemia. Continue with PhosLo 1 tablet t.i.d. with meals. Nathan Meyer MD cc: [id number] TT: 10/30/2016 16:38:27 Confirmation # [id number] Dictation # [id number] en MTDD
[2016-10-30 17:00] LABS: TRANSFERRIN 180.54 mg/dL (206-381)
[2016-10-30 17:02] LABS: IMMUNOGLOBULIN G 1218.1 mg/dL (700.0-1600.0); IMMUNOGLOBULIN M 73.5 mg/dL (40.0-230.0)
[2016-10-30 17:03] LABS: IMMUNOGLOBULIN A 281.4 mg/dL (70.0-400.0)
--- NOTE | 2016-10-30 17:28 | CON ---
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 The right knee pain is not associated with effusion. He does have muscle weakness from not abl e to ambulate well, but the range of motion is good. No crepitus, no signs of instability. The x-ra y was done, but not seen, not in the computer yet. I told him if the pain does not get better with r est, we could inject with Depo-Medrol and Marcaine to get him some relief, so we could do some exerci ses to get him stronger. FINAL DIAGNOSIS: Right knee pain, suspect mild osteoarthritis. Will work him up to see if he has an y inflammatory arthritis like gout or other arthritides Deny Baez DO cc: [id number] TT: 10/30/2016 17:27:54 Confirmation # [id number] Dictation # [id number] el
[2016-10-30 19:42] LABS: FOLATE > 20.0 ng/mL
[2016-10-31 06:11] LABS: ADD MANUAL DIFF? NO
[2016-10-31 06:25] LABS: BASO # 0.03 K/mm3 (0.0-2.0); BASO % 0.6 % (0.0-3.0); EOS # 0.5 (0.0-0.7); EOS % 9.9 % (1.5-5.0); GRAN # 1.45 (1.4-6.5); GRAN % 31.2 % (50.0-68.0); HEMATOCRIT 29.1 % (42.0-52.0); LYMPH # 2.1 (1.2-3.4); LYMPH % 45.6 % (22.0-35.0); MEAN CELL VOLUME 99.3 fL (80.0-105.0); MEAN CORPUSCULAR HEMOGLOBIN 33.1 pg (25.0-35.0); MEAN CORPUSCULAR HGB CONC 33.3 g/dl (31.0-37.0); MEAN PLATELET VOLUME 9.5 fl (7.0-11.0); MONO # 0.6 (0.1-0.6); MONO % 12.7 % (1.0-6.0); PLATELET COUNT 215 10^3/uL (120.0-450.0); RED CELL DISTRIBUTION WIDTH 13.8 % (11.5-14.5); WHITE BLOOD COUNT 4.7 10^3/ul (4.5-11.0)
[2016-10-31 06:30] LABS: ALB/GLOB RATIO 1.2 (1.1-1.8); BILIRUBIN,TOTAL 0.6 mg/dL (0.2-1.3); CALCIUM 9.1 mg/dL (8.4-10.5); POTASSIUM 4.5 mmol/L (3.6-5.0); TOTAL PROTEIN 6.2 g/dL (5.8-8.3); URIC ACID 5.8 mg/dL (3.5-8.5)
[2016-10-31] MEDS ORDERED: Darbepoetin Alfa 25 mcg/ml Inj IVP ONE (06:35)
--- NOTE | 2016-10-31 08:38 | CP.PCM.PN ---
<RobBarbara - Last Filed: 10/31/16 11:24> Subjective - Date & Time of Evaluation Date of Evaluation: 10/31/16 Time of Evaluation: 08:32 - Subjective Subjective: Gastroenterology Fellow/PGY4 Progress Note Patient seen in dialysis. He notes no abdominal pain since yesterday. Tolerated low fat diet. No bowel movement. A 12-point review of systems negative except for as above. Objective - Vital Signs/Intake and Output Vital Signs (last 24 hours): Temp Pulse Resp BP Pulse Ox 97.8 F 53 L 20 159/67 H 98 10/31/16 07:30 10/31/16 07:30 10/31/16 07:30 10/31/16 07:30 10/31/16 07:30 Intake and Output: 10/31/16 10/31/16 06:59 18:59 Intake Total 300 Balance 300 - Medications Medications: Current Medications Amlodipine Besylate (Norvasc) 10 mg PO DAILY [facility] Last Admin: 10/30/16 10:23 Dose: 10 mg Aspirin (Ecotrin) 81 mg PO DAILY [facility] Last Admin: 10/30/16 10:23 Dose: 81 mg Calcium Acetate (Phoslo) 667 mg PO TID [facility] Last Admin: 10/30/16 17:15 Dose: 667 mg Carvedilol (Coreg) 25 mg PO BID [facility] Last Admin: 10/30/16 17:15 Dose: Not Given Heparin Sodium (Porcine) (Heparin) 5,000 units SC Q12 [facility] PRN Reason: Protocol Last Admin: 10/30/16 21:39 Dose: 5,000 units Hydralazine HCl (Apresoline) 50 mg PO BID [facility] Last Admin: 10/30/16 17:15 Dose: Not Given Insulin Human Regular (Humulin R Low) 0 units SC ACHS [facility] PRN Reason: Protocol Last Admin: 10/30/16 22:25 Dose: Not Given Isosorbide Mononitrate (Imdur) 30 mg PO DAILY [facility] Last Admin: 10/30/16 10:23 Dose: 30 mg Losartan Potassium (Cozaar) 100 mg PO DAILY [facility] Last Admin: 10/30/16 10:23 Dose: 100 mg Ondansetron HCl (Zofran Inj) 4 mg IVP Q6H PRN PRN Reason: Nausea/Vomiting Pantoprazole Sodium (Protonix Inj) 40 mg IVP DAILY [facility] Last Admin: 10/30/16 10:20 Dose: 40 mg Tramadol HCl (Ultram) 50 mg PO TID PRN PRN Reason: Pain, severe (8-10) Last Admin: 10/30/16 12:47 Dose: 50 mg Vitamin B Complex/Vit C/Folic Acid (Nephro-Luis) 1 tab PO DAILY [facility] Last Admin: 10/30/16 10:23 Dose: 1 tab - Labs Labs: 10/31/16 06:05 10/31/16 06:05 PT 11.7 Seconds (9.9-11.8) 10/29/16 11:10 INR 1.08 (0.93-1.08) 10/29/16 11:10 APTT 29.3 Seconds (23.7-30.8) 10/29/16 11:10 - Constitutional Appears: Non-toxic, No Acute Distress - Head Exam Head Exam: ATRAUMATIC, NORMOCEPHALIC - Eye Exam Eye Exam: EOMI, PERRL Pupil Exam: PERRL. absent: Miosis, Mydriatic - ENT Exam ENT Exam: Mucous Membranes Moist, Normal Oropharynx - Neck Exam Neck Exam: Full ROM, Normal Inspection - Respiratory Exam Respiratory Exam: Clear to Ausculation Bilateral. absent: Rales, Rhonchi, Wheezes - Cardiovascular Exam Cardiovascular Exam: RRR, +S1, +S2. absent: Gallop, Rubs - GI/Abdominal Exam GI & Abdominal Exam: Soft, Normal Bowel Sounds. absent: Distended, Firm, Guarding, Tenderness, Organomegaly, Rebound - Extremities Exam Additional comments: normal inspection RLE, L AKA - Neurological Exam Neurological Exam: Alert, Awake - Psychiatric Exam Psychiatric exam: Normal Affect, Normal Mood - Skin Skin Exam: Dry, Intact, Normal Color, Warm Assessment and Plan - Assessment and Plan (Free Text) Assessment: 76 year old male with medical history of Hypertension, Diabetes, ESRD on HD TThSat, sacral ulcers, Dementia and cholecystectomy (~10 years ago) presenting with abdominal pain for two weeks worsened during dialysis. Active treatment of acute pancreatitis secondary to alcohol. Ultrasound and CT A/P with no acute findings. Laboratory findings show elevated transaminases with negative Hepatitis panel 02/2016. Prior EGD and colonoscopy 02/2016 showed esophagitis, reactive gastropathy, benign colonic mucosa, and internal hemorrhoids. Plan: >abdominal pain resolved >tolerating low fat diet >IVFs stopped >counselled on alcohol cessation >normal IgG/A/M >repeat LFTs in 1-2 weeks with PCP and follow up results of autoimmune workup: ASMA, AMA, LKM, MALLORY >GI referral if LFTs not decreasing and if positive results of autoimmune workup >thank you for opportunity to participate in the care of this patient <Danny Ann - Last Filed: 10/31/16 12:01> Objective - Vital Signs/Intake and Output Vital Signs (last 24 hours): Temp Pulse Resp BP Pulse Ox 97.8 F 57 L 20 169/65 H 98 10/31/16 07:30 10/31/16 11:19 10/31/16 07:30 10/31/16 11:20 10/31/16 07:30 Intake and Output: 10/31/16 10/31/16 06:59 18:59 Intake Total 300 Balance 300 - Medications Medications: Current Medications Amlodipine Besylate (Norvasc) 10 mg PO DAILY [facility] Last Admin: 10/31/16 11:20 Dose: 10 mg Aspirin (Ecotrin) 81 mg PO DAILY [facility] Last Admin: 10/31/16 11:19 Dose: 81 mg Calcium Acetate (Phoslo) 667 mg PO TID [facility] Last Admin: 10/31/16 11:19 Dose: 667 mg Carvedilol (Coreg) 25 mg PO BID [facility] Last Admin: 10/31/16 11:19 Dose: 25 mg Heparin Sodium (Porcine) (Heparin) 5,000 units SC Q12 [facility] PRN Reason: Protocol Last Admin: 10/31/16 11:20 Dose: 5,000 units Hydralazine HCl (Apresoline) 50 mg PO BID [facility] Last Admin: 10/31/16 11:19 Dose: 50 mg Insulin Human Regular (Humulin R Low) 0 units SC ACHS [facility] PRN Reason: Protocol Last Admin: 10/31/16 09:55 Dose: Not Given Isosorbide Mononitrate (Imdur) 30 mg PO DAILY [facility] Last Admin: 10/31/16 11:19 Dose: 30 mg Losartan Potassium (Cozaar) 100 mg PO DAILY [facility] Last Admin: 10/31/16 11:19 Dose: 100 mg Ondansetron HCl (Zofran Inj) 4 mg IVP Q6H PRN PRN Reason: Nausea/Vomiting Pantoprazole Sodium (Protonix Inj) 40 mg IVP DAILY [facility] Last Admin: 10/31/16 11:20 Dose: 40 mg Tramadol HCl (Ultram) 50 mg PO TID PRN PRN Reason: Pain, severe (8-10) Last Admin: 10/30/16 12:47 Dose: 50 mg Vitamin B Complex/Vit C/Folic Acid (Nephro-Luis) 1 tab PO DAILY [facility] Last Admin: 10/31/16 11:19 Dose: 1 tab - Labs Labs: 10/31/16 06:05 10/31/16 06:05 PT 11.7 Seconds (9.9-11.8) 10/29/16 11:10 INR 1.08 (0.93-1.08) 10/29/16 11:10 APTT 29.3 Seconds (23.7-30.8) 10/29/16 11:10 Attending/Attestation - Attestation I have personally seen and examined this patient.: Yes I have fully participated in the care of the patient.: Yes I have reviewed all pertinent clinical information, including history, physical exam and plan: Yes Notes (Text): Patient seen with GI fellow. Agree with note as documented above with the following additions/exceptions. This is a 76 year old male with past medical history of HTN, DM, ESRD on HD, ETOH dependence and cholecystectomy admitted with abdominal pain, elevated lipase/abnormal LFTs. Pancreas unremarkable on imaging. His abdominal pain has resolved and he is tolerating PO without difficulty. LFTs improving. Follow up autoimmune serologies. He was advised to avoid ETOH/hepatoxins. From GI standpoint, ok for discharge. He will need outpatient f/u of LFTs in 1-2 weeks. Please call with any further questions/ concerns. 10/31/16 11:59
[2016-10-31] MEDS: Insulin Reg-LOW-Coverage SC SCH ×3 (09:55→16:39)
[2016-10-31] MEDS: Multivitamin Vitamin B Complex (Nephro-Vite) Tab PO SCH (11:19)
--- NOTE | 2016-10-31 11:56 | CP.PCM.DIS ---
<Deion Real - Last Filed: 11/02/16 09:39> Provider - Provider Date of Admission: 10/29/16 15:12 Attending physician: Erasto Helms MD Primary care physician: Freddie Profile Required Consults: Dr. Meyer - Nephrology Dr. Maya - GI Dr. Baez - Ortho Time Spent in preparation of Discharge (in minutes): 30 Hospital Course - Lab Results Lab Results: Most Recent Lab Values WBC 4.7 10^3/ul (4.5-11.0) 10/31/16 06:05 RBC 2.93 10^6/uL (3.5-6.1) L 10/31/16 06:05 Hgb 9.7 gm/dL (14.0-18.0) L 10/31/16 06:05 Hct 29.1 % (42.0-52.0) L 10/31/16 06:05 MCV 99.3 fL (80.0-105.0) 10/31/16 06:05 MCH 33.1 pg (25.0-35.0) 10/31/16 06:05 MCHC 33.3 g/dl (31.0-37.0) 10/31/16 06:05 RDW 13.8 % (11.5-14.5) 10/31/16 06:05 Plt Count 215 10^3/uL (120.0-450.0) 10/31/16 06:05 MPV 9.5 fl (7.0-11.0) 10/31/16 06:05 Gran % 31.2 % (50.0-68.0) L 10/31/16 06:05 Lymph % (Auto) 45.6 % (22.0-35.0) H 10/31/16 06:05 [place] % (Auto) 12.7 % (1.0-6.0) H 10/31/16 06:05 Eos % (Auto) 9.9 % (1.5-5.0) H 10/31/16 06:05 Baso % (Auto) 0.6 % (0.0-3.0) 10/31/16 06:05 Gran # 1.45 (1.4-6.5) 10/31/16 06:05 Lymph # 2.1 (1.2-3.4) 10/31/16 06:05 [place] # 0.6 (0.1-0.6) 10/31/16 06:05 Eos # 0.5 (0.0-0.7) 10/31/16 06:05 Baso # 0.03 K/mm3 (0.0-2.0) 10/31/16 06:05 PT 11.7 Seconds (9.9-11.8) 10/29/16 11:10 INR 1.08 (0.93-1.08) 10/29/16 11:10 APTT 29.3 Seconds (23.7-30.8) 10/29/16 11:10 Sodium 138 mmol/L (132-148) 10/31/16 06:05 Potassium 4.5 mmol/L (3.6-5.0) 10/31/16 06:05 Chloride 100 mmol/L (98-107) 10/31/16 06:05 Carbon Dioxide 25 mmol/L (21-33) 10/31/16 06:05 Anion Gap 18 (10-20) 10/31/16 06:05 BUN 51 mg/dL (7-21) H 10/31/16 06:05 Creatinine 7.7 mg/dL (0.5-1.4) H 10/31/16 06:05 Est GFR ( Amer) 8 10/31/16 06:05 Est GFR (Non-Af Amer) 7 10/31/16 06:05 POC Glucose (mg/dL) 103 mg/dL (65-110) 10/31/16 11:31 Random Glucose 89 mg/dL (70-110) 10/31/16 06:05 Uric Acid 5.8 mg/dL (3.5-8.5) 10/31/16 06:05 Calcium 9.1 mg/dL (8.4-10.5) 10/31/16 06:05 Phosphorus 7.0 mg/dL (2.5-4.5) H 10/31/16 06:05 Magnesium 2.0 mg/dL (1.7-2.2) 10/31/16 06:05 Iron 80 ug/dL (45-180) 10/30/16 08:45 TIBC 231 ug/dL (261-462) L 10/30/16 08:45 % Saturation 35 % (20-55) 10/30/16 08:45 Transferrin 180.54 mg/dL (206-381) L 10/30/16 08:45 Ferritin 2010.0 ng/mL 10/30/16 08:45 Total Bilirubin 0.6 mg/dL (0.2-1.3) 10/31/16 06:05 AST 84 U/L (15-59) H 10/31/16 06:05 ALT 170 U/L (7-56) H 10/31/16 06:05 Alkaline Phosphatase 68 U/L (38-133) 10/31/16 06:05 Lactate Dehydrogenase 987 U/L (333-699) H 10/29/16 11:10 Total Creatine Kinase 72 U/L (35-230) 10/29/16 11:10 Troponin I 0.03 ng/mL 10/29/16 11:10 Total Protein 6.2 g/dL (5.8-8.3) 10/31/16 06:05 Albumin 3.4 g/dL (3.0-4.8) 10/31/16 06:05 Globulin 2.9 gm/dL 10/31/16 06:05 Albumin/Globulin Ratio 1.2 (1.1-1.8) 10/31/16 06:05 Triglycerides 154 mg/dL (35-160) 10/29/16 11:10 Cholesterol 184 mg/dL (130-200) 10/29/16 11:10 LDL Cholesterol Direct 102 mg/dL (0-129) 10/29/16 11:10 HDL Cholesterol 43 mg/dL (29-60) 10/29/16 11:10 Amylase 146 U/L (35-125) H 10/30/16 07:00 Lipase 215 U/L (23-300) 10/30/16 07:00 Vitamin B12 980 pg/mL (239-931) H 10/30/16 08:45 Folate > 20.0 ng/mL 10/30/16 08:45 TSH 3rd Generation 1.12 mIU/mL (0.46-4.68) 10/30/16 07:00 IgG 1218.1 mg/dL (700.0-1600.0) 10/30/16 08:45 IgA 281.4 mg/dL (70.0-400.0) 10/30/16 08:45 IgM 73.5 mg/dL (40.0-230.0) 10/30/16 08:45 - Hospital Course Hospital Course: 76yo male with past medical history that includes ESRD on hemodialysis (e/ /Fri), hypertension, DM type 2, chronic sacral ulcers, dementia presented to [facility] emergency room post dialysis session at [facility] [place] with complaints of epigastric abdominal pain, nausea, and one episode of non-bilious , non-bloody vomiting. Patient was at hemodialysis earlier that day and reported feeling unwell. He had completed his session and was brought down to the ED for further evaluation. Initial labs were notable for a total bilirubin of 1.4, AST 303, ALT 149, lipase 1809. CT abdomen/pelvis without IV contrast revealed no acute findings. CXR revealed no active disease. EKG showed sinus bradycardia with left axis deviation, no ST elevations and T wave inversions of the lateral leads that were unchanged from prior EKG's. He was subsequently admitted for pancreatitis and was started on careful IV hydration due to his renal status. An abdominal US revealed no acute pathology. GI was consulted. He was started on a liquid diet which was slowly advanced and tolerated without issue. His lipase downtrended to within normal limits the following day. Nephrology was consulted as well. Over the course of his admission, he reported resolution of his abdominal pain and was eager to eat. He tolerated a full renal diet and was discharged with strict instructions to follow up with his primary doctor within 1-2 weeks. He was also instructed to follow up with his venetian blind cleaner and repairer within 1-2 weeks as well as gastroenterology within 1-2 weeks. Patient was agreeable to instructions. Discharge Exam - Head Exam Head Exam: ATRAUMATIC, NORMOCEPHALIC - Eye Exam Eye Exam: EOMI, PERRL - Cardiovascular Exam Cardiovascular Exam: +S1, +S2. absent: Gallop, Rubs - GI/Abdominal Exam GI & Abdominal Exam: Normal Bowel Sounds, Soft. absent: Distended, Firm, Guarding, Tenderness - Extremities Exam Additional comments: left AKA - Neurological Exam Neurological exam: Alert, Oriented x3 - Psychiatric Exam Psychiatric exam: Normal Affect, Normal Mood - Skin Skin Exam: Dry, Intact, Normal Color, Warm Discharge Plan - Follow Up Plan Condition: FAIR Disposition: HOME/ ROUTINE Instructions: Pancreatitis (DC) Additional Instructions: 1. Follow up with your primary doctor within 1-2 weeks 2. Follow up with your venetian blind cleaner and repairer within 1-2 weeks 3. Return to the emergency room should your condition worsen 4. TO CONTINUE PRESENT DIALYSIS SCHEDULE Referrals: Freddie Bustillos Inaedenilson, [Non-Staff] - <Marquis Parks - Last Filed: 11/07/16 19:31> Provider - Provider Date of Admission: 10/29/16 15:12 Attending physician: Erasto Helms MD Primary care physician: NO PRIMARY CARE PROVIDER Hospital Course - Lab Results Lab Results: Most Recent Lab Values WBC 4.7 10^3/ul (4.5-11.0) 10/31/16 06:05 RBC 2.93 10^6/uL (3.5-6.1) L 10/31/16 06:05 Hgb 9.7 gm/dL (14.0-18.0) L 10/31/16 06:05 Hct 29.1 % (42.0-52.0) L 10/31/16 06:05 MCV 99.3 fL (80.0-105.0) 10/31/16 06:05 MCH 33.1 pg (25.0-35.0) 10/31/16 06:05 MCHC 33.3 g/dl (31.0-37.0) 10/31/16 06:05 RDW 13.8 % (11.5-14.5) 10/31/16 06:05 Plt Count 215 10^3/uL (120.0-450.0) 10/31/16 06:05 MPV 9.5 fl (7.0-11.0) 10/31/16 06:05 Gran % 31.2 % (50.0-68.0) L 10/31/16 06:05 Lymph % (Auto) 45.6 % (22.0-35.0) H 10/31/16 06:05 [place] % (Auto) 12.7 % (1.0-6.0) H 10/31/16 06:05 Eos % (Auto) 9.9 % (1.5-5.0) H 10/31/16 06:05 Baso % (Auto) 0.6 % (0.0-3.0) 10/31/16 06:05 Gran # 1.45 (1.4-6.5) 10/31/16 06:05 Lymph # 2.1 (1.2-3.4) 10/31/16 06:05 [place] # 0.6 (0.1-0.6) 10/31/16 06:05 Eos # 0.5 (0.0-0.7) 10/31/16 06:05 Baso # 0.03 K/mm3 (0.0-2.0) 10/31/16 06:05 PT 11.7 Seconds (9.9-11.8) 10/29/16 11:10 INR 1.08 (0.93-1.08) 10/29/16 11:10 APTT 29.3 Seconds (23.7-30.8) 10/29/16 11:10 Sodium 138 mmol/L (132-148) 10/31/16 06:05 Potassium 4.5 mmol/L (3.6-5.0) 10/31/16 06:05 Chloride 100 mmol/L (98-107) 10/31/16 06:05 Carbon Dioxide 25 mmol/L (21-33) 10/31/16 06:05 Anion Gap 18 (10-20) 10/31/16 06:05 BUN 51 mg/dL (7-21) H 10/31/16 06:05 Creatinine 7.7 mg/dL (0.5-1.4) H 10/31/16 06:05 Est GFR ( Amer) 8 10/31/16 06:05 Est GFR (Non-Af Amer) 7 10/31/16 06:05 POC Glucose (mg/dL) 114 mg/dL (65-110) H 10/31/16 21:30 Random Glucose 89 mg/dL (70-110) 10/31/16 06:05 Uric Acid 5.8 mg/dL (3.5-8.5) 10/31/16 06:05 Calcium 9.1 mg/dL (8.4-10.5) 10/31/16 06:05 Phosphorus 7.0 mg/dL (2.5-4.5) H 10/31/16 06:05 Magnesium 2.0 mg/dL (1.7-2.2) 10/31/16 06:05 Iron 80 ug/dL (45-180) 10/30/16 08:45 TIBC 231 ug/dL (261-462) L 10/30/16 08:45 % Saturation 35 % (20-55) 10/30/16 08:45 Transferrin 180.54 mg/dL (206-381) L 10/30/16 08:45 Ferritin 2010.0 ng/mL 10/30/16 08:45 Total Bilirubin 0.6 mg/dL (0.2-1.3) 10/31/16 06:05 AST 84 U/L (15-59) H 10/31/16 06:05 ALT 170 U/L (7-56) H 10/31/16 06:05 Alkaline Phosphatase 68 U/L (38-133) 10/31/16 06:05 Lactate Dehydrogenase 987 U/L (333-699) H 10/29/16 11:10 Total Creatine Kinase 72 U/L (35-230) 10/29/16 11:10 Troponin I 0.03 ng/mL 10/29/16 11:10 Total Protein 6.2 g/dL (5.8-8.3) 10/31/16 06:05 Albumin 3.4 g/dL (3.0-4.8) 10/31/16 06:05 Globulin 2.9 gm/dL 10/31/16 06:05 Albumin/Globulin Ratio 1.2 (1.1-1.8) 10/31/16 06:05 Triglycerides 154 mg/dL (35-160) 10/29/16 11:10 Cholesterol 184 mg/dL (130-200) 10/29/16 11:10 LDL Cholesterol Direct 102 mg/dL (0-129) 10/29/16 11:10 HDL Cholesterol 43 mg/dL (29-60) 10/29/16 11:10 Amylase 146 U/L (35-125) H 10/30/16 07:00 Lipase 215 U/L (23-300) 10/30/16 07:00 Vitamin B12 980 pg/mL (239-931) H 10/30/16 08:45 Folate > 20.0 ng/mL 10/30/16 08:45 TSH 3rd Generation 1.12 mIU/mL (0.46-4.68) 10/30/16 07:00 IgG, Serum (MS) 25.0 mg/dL (4-86) 10/30/16 08:45 IgG 1218.1 mg/dL (700.0-1600.0) 10/30/16 08:45 IgA 281.4 mg/dL (70.0-400.0) 10/30/16 08:45 IgM 73.5 mg/dL (40.0-230.0) 10/30/16 08:45 MALLORY Screen Negative (Negative) 10/30/16 08:45 MALLORY Titer TEST NOT PERFORMED 10/30/16 08:45 MALLORY Titer 2 TEST NOT PERFORMED 10/30/16 08:45 MALLORY Pattern TEST NOT PERFORMED 10/30/16 08:45 MALLORY Pattern 2 TEST NOT PERFORMED 10/30/16 08:45 Anti-Mitochondrial Ab Negative (Negative) 10/30/16 08:45 Anti-Smooth Muscle Ab Negative (Negative) 10/30/16 08:45 Liver/Kid Microsomes Ab <=20.0 U (<=20.0) 10/30/16 08:45 Attending/Attestation - Attestation I have personally seen and examined this patient.: Yes I have fully participated in the care of the patient.: Yes I have reviewed all pertinent clinical information, including history, physical exam and plan: Yes Notes (Text): 11/07/16 19:30 Medical record note made by the resident after discussion with my direction and input after the patient was personally seen and examined by me. I have reviewed the chart and agree that the record accurately reflects by personal performance of the history, physical exam, data review, and medical decision-making, in the course for the patient. I have also personally directed the plan of care.
[2016-10-31 17:11] VITALS: BP 111/53; PULSE 60
--- NOTE | 2016-10-31 17:42 | CP.PCM.CON ---
<Beto Waller - Last Filed: 10/31/16 17:38> History of Present Illness - History of Present Illness History of Present Illness: PODIATRY CONSULT NOTE 76 year ole male seen at bedside for evaluation of right foot and leg. 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 Pt has yet to receive a fashioned prosthesis and as yet has not ambulated bt is performing physical therapy with home PT. Pt has no acute pedal complaints at this time for the right side. No pain. Pt denies f/c/cp/sob/n/v/ Pt states he has tolerated diet today, and is having no chest or stomach pain as of this morning. Past Patient History - Infectious Disease Hx of Infectious Diseases: None - Past Medical History & Family History Past Medical History?: Yes - Past Social History Smoking Status: Former Smoker - CARDIAC Hx Cardiac Disorders: Yes Hx Hypertension: Yes - PULMONARY Hx Respiratory Disorders: Yes Hx Chronic Obstructive Pulmonary Disease (COPD): Yes - NEUROLOGICAL Hx Neurological Disorder: Yes HX Cerebrovascular Accident: Yes (L side hemiparesis) - HEENT Hx HEENT Problems: No - RENAL Hx Chronic Kidney Disease: Yes Date of Last Dialysis Treatment: 10/29/16 Hx Renal Failure: Yes (ESRD, CKD) - ENDOCRINE/METABOLIC Hx Endocrine Disorders: Yes Hx Diabetes Mellitus Type 2: Yes - HEMATOLOGICAL/ONCOLOGICAL Hx Blood Disorders: Yes Hx Anemia: Yes - INTEGUMENTARY Hx Dermatological Problems: No - MUSCULOSKELETAL/RHEUMATOLOGICAL Hx Musculoskeletal Disorders: Yes Hx Arthritis: Yes (Spinal Arthritis) - GASTROINTESTINAL Hx Gastrointestinal Disorders: Yes Hx Gall Bladder Disease: Yes (Cholecystectomy) - GENITOURINARY/GYNECOLOGICAL Hx Genitourinary Disorders: No - PSYCHIATRIC Hx Psychophysiologic Disorder: No Hx Substance Use: No - SURGICAL HISTORY Hx Appendectomy: Yes Hx Carotid Endarterectomy: Yes (bilat) Hx Cholecystectomy: Yes Hx Coronary Stent: Yes Other/Comment: LEFT aka - ANESTHESIA Hx Anesthesia: Yes Hx Anesthesia Reactions: No Hx Malignant Hyperthermia: No Meds Allergies/Adverse Reactions: Allergies Allergy/AdvReac Type Severity Reaction Status Date / Time No Known Allergies Allergy Verified 10/29/16 22:52 - Medications Medications: Current Medications Amlodipine Besylate (Norvasc) 10 mg PO DAILY [facility] Last Admin: 10/31/16 11:20 Dose: 10 mg Aspirin (Ecotrin) 81 mg PO DAILY [facility] Last Admin: 10/31/16 11:19 Dose: 81 mg Calcium Acetate (Phoslo) 667 mg PO TID [facility] Last Admin: 10/31/16 17:08 Dose: 667 mg Carvedilol (Coreg) 25 mg PO BID [facility] Last Admin: 10/31/16 17:09 Dose: 25 mg Heparin Sodium (Porcine) (Heparin) 5,000 units SC Q12 MADELYN PRN Reason: Protocol Last Admin: 10/31/16 11:20 Dose: 5,000 units Hydralazine HCl (Apresoline) 50 mg PO BID [facility] Last Admin: 10/31/16 17:08 Dose: 50 mg Insulin Human Regular (Humulin R Low) 0 units SC ACHS [facility] PRN Reason: Protocol Last Admin: 10/31/16 16:39 Dose: Not Given Isosorbide Mononitrate (Imdur) 30 mg PO DAILY [facility] Last Admin: 10/31/16 11:19 Dose: 30 mg Losartan Potassium (Cozaar) 100 mg PO DAILY [facility] Last Admin: 10/31/16 11:19 Dose: 100 mg Ondansetron HCl (Zofran Inj) 4 mg IVP Q6H PRN PRN Reason: Nausea/Vomiting Pantoprazole Sodium (Protonix Inj) 40 mg IVP DAILY [facility] Last Admin: 10/31/16 11:20 Dose: 40 mg Tramadol HCl (Ultram) 50 mg PO TID PRN PRN Reason: Pain, severe (8-10) Last Admin: 10/30/16 12:47 Dose: 50 mg Vitamin B Complex/Vit C/Folic Acid (Nephro-Luis) 1 tab PO DAILY [facility] Last Admin: 10/31/16 11:19 Dose: 1 tab Physical Exam - Constitutional Appears: Well, Non-toxic, No Acute Distress - Extremities Exam Additional comments: RIGHT LEG FOCUSED>LEGT AKA NOTED. VASC: Dorsalis pedis and perforating peroneal artery pulses noted at level of ankle joint graded 2/4. Posterior tibial pulse noted weakly palpable, graded 1/ 4. 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 No pedal edema noted. No calf pain to compression. DERM: No open wounds, lesion, or macerations noted. No interdigital macerations noted. Diffuse macules of hyperpigmentation noted along right leg. Nails or thickened but normotrophic, absent sub-ungual debris. Plantar skin is mildly xerotic. NEURO: Protective sensation grossly diminished. Negative babinski. MUSCK: Pedal muscle strength in saggital plane muscle groups noted to be 5/5 and on frontal plane noted to be 4/5. Low lower leg muscle tone noted. No fasciculation. No tenderness to palpation along foot or leg. - Neurological Exam Neurological exam: Alert, Oriented x3 - Psychiatric Exam Psychiatric exam: Normal Affect, Normal Mood Results - Vital Signs Recent Vital Signs: Last Vital Signs Temp 97.8 F 10/31/16 07:30 Pulse 60 10/31/16 17:08 Resp 20 10/31/16 07:30 BP 111/53 L 10/31/16 17:08 Pulse Ox 98 10/31/16 07:30 - Labs Result Diagrams: 10/31/16 06:05 10/31/16 06:05 Labs: Laboratory Results - last 24 hr 10/30/16 10/30/16 10/30/16 08:45 08:45 21:48 WBC RBC Hgb Hct MCV MCH MCHC RDW Plt Count MPV Gran % Lymph % (Auto) [place] % (Auto) Eos % (Auto) Baso % (Auto) Gran # Lymph # [place] # Eos # Baso # Sodium Potassium Chloride Carbon Dioxide Anion Gap BUN Creatinine Est GFR ( Amer) Est GFR (Non-Af Amer) POC Glucose (mg/dL) 116 H Random Glucose Uric Acid Calcium Phosphorus Magnesium Ferritin 2010.0 Total Bilirubin AST ALT Alkaline Phosphatase Total Protein Albumin Globulin Albumin/Globulin Ratio Vitamin B12 980 H Folate > 20.0 Anti-Mitochondrial Ab Negative Anti-Smooth Muscle Ab Negative 10/31/16 10/31/16 10/31/16 06:05 06:05 09:45 WBC 4.7 RBC 2.93 L Hgb 9.7 L Hct 29.1 L MCV 99.3 MCH 33.1 MCHC 33.3 RDW 13.8 Plt Count 215 MPV 9.5 Gran % 31.2 L Lymph % (Auto) 45.6 H [place] % (Auto) 12.7 H Eos % (Auto) 9.9 H Baso % (Auto) 0.6 Gran # 1.45 Lymph # 2.1 [place] # 0.6 Eos # 0.5 Baso # 0.03 Sodium 138 Potassium 4.5 Chloride 100 Carbon Dioxide 25 Anion Gap 18 BUN 51 H Creatinine 7.7 H Est GFR ( Amer) 8 Est GFR (Non-Af Amer) 7 POC Glucose (mg/dL) 103 Random Glucose 89 Uric Acid 5.8 Calcium 9.1 Phosphorus 7.0 H Magnesium 2.0 Ferritin Total Bilirubin 0.6 AST 84 H ALT 170 H Alkaline Phosphatase 68 Total Protein 6.2 Albumin 3.4 Globulin 2.9 Albumin/Globulin Ratio 1.2 Vitamin B12 Folate Anti-Mitochondrial Ab Anti-Smooth Muscle Ab 10/31/16 10/31/16 11:31 16:19 WBC RBC Hgb Hct MCV MCH MCHC RDW Plt Count MPV Gran % Lymph % (Auto) [place] % (Auto) Eos % (Auto) Baso % (Auto) Gran # Lymph # [place] # Eos # Baso # Sodium Potassium Chloride Carbon Dioxide Anion Gap BUN Creatinine Est GFR ( Amer) Est GFR (Non-Af Amer) POC Glucose (mg/dL) 103 120 H Random Glucose Uric Acid Calcium Phosphorus Magnesium Ferritin Total Bilirubin AST ALT Alkaline Phosphatase Total Protein Albumin Globulin Albumin/Globulin Ratio Vitamin B12 Folate Anti-Mitochondrial Ab Anti-Smooth Muscle Ab Assessment & Plan - Assessment and Plan (Free Text) Assessment: 76 year old male seen for evaluation of right LE. 1) Diabetic dermatopathy. Plan: Pt seen and evaluated. Discussed with attending. Dr. Oliver. Chart, labs, and vitals reviewed. Afebrile, absent leukocytosis. Pt to continue home physical therapy and conditioning , with focus on strengthening right lower leg, and left thigh and torso. Pt go get left leg prosthesis when able. No acute podiatric issues noted. Pt to moisturized and apply skin protectant to right foot and leg. Discussed with pt to continue offloading remaining heel to avoid pressure ulceration when laying or sitting for prolonged periods. Pt is stable from podiatric standpoint for discharge. - Date & Time Date: 10/31/16 Time: 11:00 <Luz Oliver - Last Filed: 11/03/16 19:16> Results - Vital Signs Recent Vital Signs: Last Vital Signs Temp 98 F 10/31/16 16:00 Pulse 60 10/31/16 17:08 Resp 16 10/31/16 16:00 BP 111/53 L 10/31/16 17:08 Pulse Ox 96 10/31/16 16:00 - Labs Result Diagrams: 10/31/16 06:05 10/31/16 06:05 Attending/Attestation - Attestation I have personally seen and examined this patient.: Yes I have fully participated in the care of the patient.: Yes I have reviewed all pertinent clinical information: Yes
[2016-10-31 17:58] VITALS: RESP 16; TEMP 98; O2SAT 96
--- NOTE | 2016-10-31 20:39 | PN ---
DATE: 10/31/2016 HISTORY OF PRESENT ILLNESS: A 76-year-old male with past medical history of hypertension, diabetes, peripheral vascular disease, status post bilateral carotid endarterectomy, status post left AKA and E SRD on hemodialysis, admitted with acute pancreatitis. Nephrology following for routine ESRD care. The patient seen on dialysis, was diaphoretic toward the end of treatment as blood pressure had dropp ed, although blood pressure was stable through most of the treatment. Reports feeling well, tolerati ng diet. PHYSICAL EXAMINATION: VITAL SIGNS: This afternoon, blood pressure 141/53, heart rate 60, respirations 16, temperature 98, O2 sat 96% on room air. GENERAL: No distress, conversing coherently in full sentences. HEENT: Moist mucous membranes. Nonicteric. RESPIRATORY: Lungs are clear to auscultation bilaterally. No rales, no rhonchi, no wheezes. HEART: S1, S2 normal. No murmurs, no gallops, no rubs. GASTROINTESTINAL: Abdomen soft, nontender, nondistended. EXTREMITIES: No leg edema. LABORATORY DATA: This morning, WBC 4.7, hemoglobin 9.7, hematocrit 29.1, platelets 215. Chemistry p josue: Sodium 138, potassium 4.5, chloride 100, bicarbonate 25, BUN is 51, creatinine 7.7, glucose 89 , calcium 9.1, phosphorus 7.0. Albumin 3.4. ASSESSMENT: 1. End-stage renal disease on hemodialysis. Relatively stable electrolyte and volume status. [facility] routine hemodialysis today. Blood pressure dropped significantly on the day of presentation, but that was in the setting of acute pancreatitis. We will continue to monitor blood pressure during hem odialysis. 2. Hypertension. Blood pressure fluctuating. Currently on amlodipine 10 mg daily, Coreg 25 mg b.i. d., hydralazine 50 mg b.i.d., Imdur 30 mg daily and losartan 100 mg daily. Continue the same for now . 3. Chronic kidney disease, mineral bone disease. Phosphorus significantly elevated, on PhosLo 1 tab let t.i.d. with meals. Will adjust phos binders based on PTH level, which will be available later on this week. 4. Anemia. Hemoglobin dropping below goal of 10-11 for end-stage renal disease patient. Given dose of Aranesp today. We will await iron studies that were drawn today. 5. Vascular access. The patient previously was not interested in arteriovenous fistula after his pr evious graft failed. Will continue to advise patient to make appointment with vascular surgery in [place] to have arteriovenous fistula/arteriovenous graft placement. Nathan Meyer MD cc: [id number] TT: 10/31/2016 20:38:07 Confirmation # [id number] Dictation # [id number] ln
[2016-11-01 22:47] LABS: LKM-1 Ab (IgG) <=20.0 U (<=20.0)
== END 2016-10-31 22:39 | disposition home or self-care (01) | DRG 438 ==
LOC: ED 10:11 → ERH 15:12 → 5RSO 16:42
PROVIDERS: ADMIT Internal Medicine; ATTEND Internal Medicine
PROC: 5A1D00Z (ICD-10-PCS; principal; 2016-10-31)
DX: K85.20 Alcohol induced acute pancreatitis without necrosis or infection (principal); N18.6 End stage renal disease; I12.0 Hypertensive chronic kidney disease with stage 5 chronic kidney disease or end stage renal disease; E51.9 Thiamine deficiency, unspecified; F03.90 Unspecified dementia, unspecified severity, without behavioral disturbance, psychotic disturbance, mood disturbance, and anxiety; E11.22 Type 2 diabetes mellitus with diabetic chronic kidney disease; D52.9 Folate deficiency anemia, unspecified; E11.51 Type 2 diabetes mellitus with diabetic peripheral angiopathy without gangrene; F10.10 Alcohol abuse, uncomplicated; D63.1 Anemia in chronic kidney disease; E83.39 Other disorders of phosphorus metabolism; M17.11 Unilateral primary osteoarthritis, right knee; L98.429 Non-pressure chronic ulcer of back with unspecified severity; Y90.9 Presence of alcohol in blood, level not specified; Z99.2 Dependence on renal dialysis; Z79.4 Long term (current) use of insulin; Z89.612 Acquired absence of left leg above knee; Z87.891 Personal history of nicotine dependence

== ENCOUNTER 2016-12-21 07:13 | Emergency (ER) | payer MEDICARE, BC ==
[2016-12-21 07:26] VITALS: BMI 21.7
--- NOTE | 2016-12-21 07:29 | ED PDOC ---
Arrival/HPI - General Time Seen by Provider: 12/21/16 07:27 Historian: Patient - History of Present Illness Narrative History of Present Illness (Text): 12/21/16 07:29 A 76 year old male, whose past medical history includes ESRD with hemodialysis on and left AKA, presents to the emergency department complaining of abdominal pain since this morning. Patient reports his pain has fully resolved prior to his arrival to the emergency room. Patient denies any pain or discomfort. Contrary to triage patient denies nausea, vomiting or diarrhea. Patient denies any fever, chills, chest pain, shortness of breath or any other complaints. PMD: Dr. Fox Time/Duration: Other (This morning) Symptom Course: Resolved Quality: Other Context: Other Past Medical History - Provider Review Nursing Documentation Reviewed: Yes - Infectious Disease Hx of Infectious Diseases: None - Reproductive Currently : No - Cardiac Hx Cardiac Disorders: Yes Hx Hypertension: Yes - Pulmonary Hx Respiratory Disorders: Yes Hx Chronic Obstructive Pulmonary Disease (COPD): Yes - Neurological Hx Neurological Disorder: Yes HX Cerebrovascular Accident: Yes (L side hemiparesis) - HEENT Hx HEENT Disorder: No - Renal Hx Renal Disorder: Yes Date of Last Dialysis Treatment: 10/29/16 Hx Renal Failure: Yes (ESRD, CKD) - Endocrine/Metabolic Hx Endocrine Disorders: Yes Hx Diabetes Mellitus Type 2: Yes - Hematological/Oncological Hx Blood Disorders: Yes Hx Anemia: Yes - Integumentary Hx Dermatological Disorder: No - Musculoskeletal/Rheumatological Hx Musculoskeletal Disorders: Yes Hx Arthritis: Yes (Spinal Arthritis) - Gastrointestinal Hx Gastrointestinal Disorders: Yes Hx Gall Bladder Disease: Yes (Cholecystectomy) - Genitourinary/Gynecological Hx Genitourinary Disorders: No - Psychiatric Hx Psychophysiologic Disorder: No Hx Substance Use: No - Surgical History Hx Appendectomy: Yes Hx Carotid Endarterectomy: Yes (bilat) Hx Cholecystectomy: Yes Hx Coronary Stent: Yes Other/Comment: LEFT aka - Anesthesia Hx Anesthesia: Yes Hx Anesthesia Reactions: No Hx Malignant Hyperthermia: No - Suicidal Assessment Feels Threatened In Home Enviroment: No Family/Social History - Physician Review Nursing Documentation Reviewed: Yes Family/Social History: No Known Family HX Smoking Status: Former Smoker Hx Alcohol Use: No Hx Substance Use: No Allergies/Home Meds Allergies/Adverse Reactions: Allergies No Known Allergies Allergy (Verified 12/21/16 07:25) Home Medications: Home Meds Medication Instructions Recorded Confirmed B Complex W-C No.20/Folic Acid 1 sgl PO DAILY 10/29/16 10/29/16 [Renal Caps Softgel] Calcium Acetate [Phoslo] 667 mg PO TID 10/29/16 10/29/16 Pantoprazole [Protonix EC Tab] 20 mg PO DAILY 10/29/16 10/29/16 Physical Exam - Physical Exam Narrative Physical Exam (Text): - Review of Systems Constitutional: Normal. absent: Fatigue, Weight Change, Fevers Eyes: Normal ENT: Normal Respiratory: Normal absent: SOB, Cough, Sputum Cardiovascular: Normal absent: Chest pain, Palpitations, Syncope Gastrointestinal: (+) Abdominal pain, which has resolved absent: Diarrhea, Nausea, Vomiting Genitourinary: Normal. absent: Dysuria, Frequency, Hematuria Musculoskeletal: Normal. absent: Arthralgias, Back Pain, Neck Pain Skin: Normal Neurological: Normal absent: Focal Weakness Endocrine: Normal Hemo/Lymphatic: Normal Psychiatric: Normal - Physical exam Patient appears age appropriate, speaking full sentences without difficulty - Systems Exam Head: Present: Atraumatic, Normocephalic Pupils: Present: PERRL Extraocular Muscles: Present: EOMI Conjunctiva: Present: Normal Mouth: Present: Moist Mucous Membranes Neck: Present: Normal Range of Motion. No: MIDLINE TENDERNESS, Paraspinal Tenderness Respiratory/Chest: Present: Clear to Auscultation, Good Air Exchange. No: Respiratory Distress, Accessory Muscle Use, Tachypnic Cardiovascular: Present: Regular Rate and Rhythm, Normal S1, S2, Peripheral Pulses Present. No: Murmurs Abdomen: Present: Normal Bowel Sounds, No: Tenderness, Peritoneal Signs, Rebound, Guarding, Distention Back: Present: Normal Inspection. No: Midline Tenderness, Paraspinal Tenderness Upper Extremity: Present: Normal Inspection. No: Cyanosis, Edema Lower Extremity: Present: Left lower extremity above the knee amputation, Right lower extremity ulcers, dressing intact. No: Edema Neurological: Present: GCS=15, Speech Normal, cranial nerves II through XII fully intact with no cerebellar abnormality, neuro-sensory fully intact. No focal neurological deficits. Skin: Present: Warm, Dry, Normal Color. No: Rashes Lymphatic: Present: OX3, NI, NC Psychiatric: Present: Alert, Oriented x 3, Normal Insight, Normal Concentration Vital Signs Reviewed: Yes Vital Signs Temp Pulse Resp BP Pulse Ox 12/21/16 07:30 98.2 F 58 L 16 132/59 L 98 Temperature: Afebrile Blood Pressure: Hypotensive Pulse: Bradycardic Respiratory Rate: Normal Appearance: Positive for: Well-Appearing, Non-Toxic, Comfortable Pain Distress: None Mental Status: Positive for: Alert and Oriented X 3 Medical Decision Making ED Course and Treatment: 12/21/16 07:28 Impression: A 76 year old male with abdominal pain, that has fully resolved. Physical exam unremarkable. Plan: -- Abdomen and Pelvis CT -- EKG -- Labs -- Reassess and disposition Progress Notes: 12/21/16 08:02 EKG shows sinus bradycardia at [address]-segment elevations, lateral T- wave inversions, no changes compared to prior EKG on 10/29/16. Interpreted by me. Report Date : 12/21/2016 08:46:34 PROCEDURE: CT Abdomen and Pelvis without intravenous contrast Dictator : Clarence Cervantes MD IMPRESSION: Nonacute abdomen pelvis CT though lack of contrast agents limits interpretation. Prior cholecystectomy is evident. 12/21/16 09:07 On reevaluation, patient reports that she feels much better and would like to be discharged home. Patient's repeat abdominal exam is soft, nontender, non distended with positive bowel sounds in all 4 quadrants and no peritoneal signs. Patient is tolerating PO without any difficulty. Pt states she understands to return to the ER right away for new or worsening symptoms or for inability to f/u with PMD or specialist as instructed. Patient states that she fully agrees with and understands discharge instructions. States that she agrees with the plan and disposition. Verbalized and repeated discharge instructions and plan. I have given the patient opportunity to ask any additional questions. - Lab Interpretations Lab Results: 12/21/16 07:40 12/21/16 07:40 Lab Results 12/21/16 07:40: PT 11.6, INR 1.07, APTT 27.2 12/21/16 07:40: Sodium 143, Potassium 3.8, Chloride 104, Carbon Dioxide 24, Anion Gap 19, BUN 38 H, Creatinine 8.1 H*, Est GFR ( Amer) 8, Est GFR ( Non-Af Amer) 7, Random Glucose 126 H, Calcium 9.4, Total Bilirubin 0.7, AST 33, ALT 27, Alkaline Phosphatase 65, Total Protein 7.3, Albumin 3.9, Globulin 3.4, Albumin/Globulin Ratio 1.1, Lipase 185 12/21/16 07:40: WBC 7.7 D, RBC 3.62, Hgb 11.6 L, Hct 35.4 L, MCV 97.8, MCH 32.0 , MCHC 32.8, RDW 14.5, Plt Count 219, MPV 9.7, Gran % 71.8 H, Lymph % (Auto) 19.2 L, [place] % (Auto) 5.4, Eos % (Auto) 3.1, Baso % (Auto) 0.5, Gran # 5.50, Lymph # 1.5, [place] # 0.4, Eos # 0.2, Baso # 0.04 I have reviewed the lab results: Yes - RAD Interpretation Radiology Orders: 12/21/16 07:31 ABD & PELVIS W/O PO OR IV CONT [CT] Stat - Scribe Statement The provider has reviewed the documentation as recorded by the Vinny Mendez Provider Scribe Attestation: All medical record entries made by the Scribe were at my direction and personally dictated by me. I have reviewed the chart and agree that the record accurately reflects my personal performance of the history, physical exam, medical decision making, and the department course for this patient. I have also personally directed, reviewed, and agree with the discharge instructions and disposition. Disposition/Present on Arrival - Present on Arrival Any Indicators Present on Arrival: No History of DVT/PE: No History of Uncontrolled Diabetes: Yes Urinary Catheter: No History Surgical Site Infection Following: None - Disposition Have Diagnosis and Disposition been Completed?: Yes Diagnosis: Abdominal pain Disposition: HOME/ ROUTINE Disposition Time: 09:10 Patient Plan: Discharge Patient Problems: Current Active Problems Problem Status Onset Abdominal pain Acute Discharge Instructions (ExitCare): Abdominal Pain (ED) Additional Instructions: PLEASE RETURN TO THE EMERGENCY DEPARTMENT FOR NEW OR WORSENING SYMPTOMS. RETURN RIGHT AWAY IF YOU CANNOT FOLLOW UP WITH YOUR PRIMARY CARE DOCTOR, CLINIC, OR SPECIALIST IN 1-2 DAYS. Referrals: Carmen Fox NP [Primary Care Provider] - Follow up with primary
[2016-12-21 07:44] VITALS: TEMP 98.2; O2SAT 98
[2016-12-21 07:52] LABS: BASO # 0.04 K/mm3 (0.0-2.0); BASO % 0.5 % (0.0-3.0); EOS # 0.2 (0.0-0.7); EOS % 3.1 % (1.5-5.0); GRAN % 71.8 % (50.0-68.0); HEMOGLOBIN 11.6 gm/dL (14.0-18.0); LYMPH # 1.5 (1.2-3.4); LYMPH % 19.2 % (22.0-35.0); MEAN CELL VOLUME 97.8 fL (80.0-105.0); MEAN CORPUSCULAR HGB CONC 32.8 g/dl (31.0-37.0); MEAN PLATELET VOLUME 9.7 fl (7.0-11.0); MONO # 0.4 (0.1-0.6); MONO % 5.4 % (1.0-6.0); PLATELET COUNT 219 10^3/uL (120.0-450.0); RBC 3.62 10^6/uL (3.5-6.1); RED CELL DISTRIBUTION WIDTH 14.5 % (11.5-14.5); WHITE BLOOD COUNT 7.7 10^3/ul (4.5-11.0)
[2016-12-21 08:03] LABS: ALB/GLOB RATIO 1.1 (1.1-1.8); ALBUMIN 3.9 g/dL (3.0-4.8); CALCIUM 9.4 mg/dL (8.4-10.5)
[2016-12-21 08:04] LABS: INR 1.07 (0.93-1.08); PARTIAL THROMBOPLASTIN TIME 27.2 Seconds (23.7-30.8); PROTHROMBIN TIME 11.6 Seconds (9.9-11.8)
--- NOTE | 2016-12-21 08:48 | CT ---
PROCEDURE: CT Abdomen and Pelvis without intravenous contrast HISTORY: abd pain COMPARISON: Prior abdomen pelvis CT without contrast 10/29/2016. TECHNIQUE: Helical CT of the abdomen was performed without oral or intravenous contrast as per referring physician request. There is a clinical history abdominal pain. Contrast Dose: None Radiation dose: Total exam DLP = 368 mGy-cm. This CT exam was performed using one or more of the following dose reduction techniques: Automated exposure control, adjustment of the mA and/or kV according to patient size, and/or use of iterative reconstruction technique. FINDINGS: LOWER THORAX: No acute infiltrate pleural or pericardial effusion. Pacemaker leads or a dialysis catheter tips are noted at the right atrium. LIVER: Unremarkable. No gross lesion or ductal dilatation. GALLBLADDER AND BILE DUCTS: Prior cholecystectomy again evident. PANCREAS: Unremarkable. No gross lesion or ductal dilatation. SPLEEN: Unremarkable. ADRENALS: Unremarkable. No mass. KIDNEYS AND URETERS: Numerous arterial renal artery calcifications are identify however intrarenal calculi not completely excluded though not favored. No hydronephrosis. No solid mass. VASCULATURE: Prominent atherosclerotic abdominal aorta and iliac arterial systems identified. No aortic aneurysm. BOWEL: Moderate fecal loading throughout the large bowel. The small bowel appear unremarkable grossly. Their evaluation is compromised by lack of oral contrast. No obstruction. No gross mural thickening. APPENDIX: Not identified. No CT pattern suggest appendicitis at this time nevertheless. . PERITONEUM: Unremarkable. No free fluid. No free air. LYMPH NODES: Unremarkable. No enlarged lymph nodes. BLADDER: Unremarkable. REPRODUCTIVE: Unremarkable. BONES: Multilevel facet degenerative arthropathy appears advanced. OTHER FINDINGS: None. IMPRESSION: Nonacute abdomen pelvis CT though lack of contrast agents limits interpretation. Prior cholecystectomy is evident.
[2016-12-21 09:17] VITALS: BP 160/60; PULSE 55; RESP 15
--- NOTE | 2016-12-21 11:37 | CARD ---
APPROVED REPORT EKG Measurement Heart [id number] <Conclusion> Sinus bradycardia Left axis deviation Voltage criteria for left ventricular hypertrophy Cannot rule out Septal infarct, age undetermined T wave abnormality, consider inferolateral ischemia Abnormal ECG
== END 2016-12-21 09:20 | disposition home or self-care (01) ==
LOC: ED 07:13
DX: R10.9 Unspecified abdominal pain (principal); I12.0 Hypertensive chronic kidney disease with stage 5 chronic kidney disease or end stage renal disease; N18.6 End stage renal disease; Z99.2 Dependence on renal dialysis; Z87.891 Personal history of nicotine dependence

== ENCOUNTER 2017-05-16 09:27 | Day surgery (SDC) | payer MEDICARE, BC ==
[2017-05-08 11:24] VITALS: BMI 23.3
[2017-05-16] MEDS ORDERED: Propofol 10 mg/ml Inj (20 ML) ONE (10:41)
[2017-05-16] MEDS ORDERED: ePHEDrine 50 mg/ml Inj ONE (11:10)
[2017-05-16] MEDS ORDERED: Sodium Chloride 0.9% 1,000 ML IV SCH (11:15)
[2017-05-16 11:45] VITALS: TEMP 98.1
[2017-05-16 11:54] VITALS: RESP 20; O2SAT 98
[2017-05-16 12:28] VITALS: BP 152/63; PULSE 55
== END 2017-05-16 14:10 | disposition home or self-care (01) ==
LOC: ENDO 09:27
PROVIDERS: ATTEND Internal Medicine Gastroenterology
DX: K25.9 Gastric ulcer, unspecified as acute or chronic, without hemorrhage or perforation (principal); K29.80 Duodenitis without bleeding; K44.9 Diaphragmatic hernia without obstruction or gangrene; K29.50 Unspecified chronic gastritis without bleeding; D64.9 Anemia, unspecified
CPT/HCPCS: 43239; 82948; 88305; 88342; J2001; J2704; J3010; J7030; J7040

== ENCOUNTER 2017-09-02 20:52 | Inpatient (IN) | payer MEDICARE, BC ==
--- NOTE | 2017-09-02 21:14 | ED PDOC ---
Arrival/HPI - General Chief Complaint: Altered Mental Status Time Seen by Provider: 09/02/17 20:57 Historian: Patient - History of Present Illness Narrative History of Present Illness (Text): 09/02/17 21:14 Wayne Pizano is a 76 year old male, whose past medical history includes CVA with residual left-sided weakness, ESRD on hemodialysis (//Fri), left AKA, anemia, diabetes, hypertension, CAD with cardiac stents, and bilateral carotid endarterectomy, who presents to the Emergency department brought in by EMS accompanied by complaining of altered mental status. states patient went to dialysis today as usual and upon return home, had 1 episode of vomiting and was coughing. noted patient was acting differently than usual/ disoriented and would not respond to questioning. states at baseline patient is communicative. Patient was seen at home by his PMD today, diagnosed with bronchitis, and prescribed medication which he has not begun. Patient denies any headache, chest pain, or abdominal pain. Limited HPI and ROS secondary to patient's altered mental status. PMD: Dr. Michael Dejesus Time/Duration: 4-6 hours Symptom Onset: Gradual Symptom Course: Unchanged Activities at Onset: Light Context: Home Past Medical History - Provider Review Nursing Documentation Reviewed: Yes - Infectious Disease Hx of Infectious Diseases: None - Cardiac Hx Pacemaker: No - Pulmonary Hx Respiratory Disorders: Yes Hx Chronic Obstructive Pulmonary Disease (COPD): Yes - Neurological Hx Paralysis: Yes (left sided s/p cva 2002) - HEENT Hx HEENT Disorder: Yes (eyeglasses) - Renal Hx Renal Failure: Yes (ESRD, CKD) - Endocrine/Metabolic Hx Diabetes Mellitus Type 2: Yes - Hematological/Oncological Hx Blood Transfusions: Yes Hx Blood Transfusion Reaction: No - Integumentary Hx Dermatological Disorder: Yes - Musculoskeletal/Rheumatological Hx Musculoskeletal Disorders: Yes (frozen shoulder) - Gastrointestinal Hx Gastrointestinal Disorders: Yes (weight loss poor appetite) Hx Gall Bladder Disease: Yes (Cholecystectomy) - Genitourinary/Gynecological Hx Genitourinary Disorders: Yes (oliguria) - Psychiatric Hx Emotional Abuse: No Hx Physical Abuse: No Hx Substance Use: No - Surgical History Other/Comment: L aka - Anesthesia Hx Anesthesia Reactions: No Hx Malignant Hyperthermia: No - Suicidal Assessment Feels Threatened In Home Enviroment: No Family/Social History - Physician Review Nursing Documentation Reviewed: Yes Family/Social History: Unknown Family HX Smoking Status: Former Smoker Hx Alcohol Use: No Hx Substance Use: No Allergies/Home Meds Allergies/Adverse Reactions: Allergies No Known Allergies Allergy (Verified 03/25/17 09:45) Home Medications: Home Meds Medication Instructions Recorded Confirmed Famotidine [Pepcid] 20 mg PO HS 03/25/17 09/02/17 Folic Acid/Vit B Complex and C 1 tab PO DAILY 03/25/17 09/02/17 [Prabha-Luis Tablet] Multivit-Min/FA/Lycopen/Lutein 1 tab PO DAILY 03/25/17 09/02/17 [Centrum Silver Tablet] Sevelamer [Renagel] 800 mg PO TID 03/25/17 09/02/17 Prilosec Otc 20 mg DAILY 05/16/17 09/02/17 Review of Systems - Review of Systems Systems not reviewed;Unavailable: Altered Mental Status Respiratory: Cough Gastrointestinal: Vomiting Neurological: Other (+altered mental status) Physical Exam Vital Signs Reviewed: Yes Vital Signs Temp Pulse Resp BP Pulse Ox 09/03/17 00:58 99.9 F H 78 18 142/55 L 97 09/03/17 00:21 100 F H 78 18 156/61 H 97 09/02/17 20:53 101.2 F H 88 18 164/74 H 96 Temperature: Febrile Blood Pressure: Hypertensive Pulse: Regular Respiratory Rate: Normal Appearance: Positive for: Non-Toxic, Comfortable Pain Distress: None Mental Status: Positive for: Confused, Lethargic - Systems Exam Head: Present: Atraumatic, Normocephalic Pupils: Present: PERRL Extroacular Muscles: Present: EOMI Conjunctiva: Present: Normal Mouth: Present: Moist Mucous Membranes Neck: Present: Normal Range of Motion. No: Meningeal Signs, MIDLINE TENDERNESS , Paraspinal Tenderness Respiratory/Chest: Present: Clear to Auscultation, Good Air Exchange. No: Respiratory Distress, Accessory Muscle Use Cardiovascular: Present: Regular Rate and Rhythm, Normal S1, S2. No: Murmurs Abdomen: No: Tenderness, Distention, Peritoneal Signs Back: Present: Normal Inspection Upper Extremity: No: Cyanosis, Edema Lower Extremity: Present: Other (Left AKA). No: Edema Neurological: Present: GCS=15, CN II-XII Intact, Other (Confused, left-sided weakness). No: Motor Func Grossly Intact (residual left sided weakness) Skin: Present: Warm, Dry, Normal Color. No: Rashes Psychiatric: Present: Lethargic Medical Decision Making ED Course and Treatment: 09/02/17 21:14 Impression: 76 year old male brought in for altered mental status today. Plan: -- CT Head w/o contrast -- EKG -- Chest X-ray -- Labs, troponin, blood cultures -- Vancomycin -- Reassess and disposition Prior Visits: Notes and results from previous visits were reviewed. On 03/24/2017, pt was seen in the Emergency department status post rapid respone for unresponsiveness and alterd mental status while in dialysis. Pt was admitted to the hospital for further evaluation. Progress Notes: Reviewed EKG, NSR at [address] LAD. Non-specific ST/T wave changes. 09/02/17 22:25 Chest X-ray reviewed, shows no acute processes. 09/02/17 23:58 Case discussed with medical radiation tech environmental consultant, who is aware and agrees with plan. Case discussed with house physician, who is aware and agrees with plan. Pt will be admitted to [facility] for altered mental status under the hospitalist service. 09/03/17 00:24 CT Head shows: Brain: There is mild diffuse cerebral atrophy present, consistent with this patient's age. There is moderate diffuse heterogeneity of the white matter attenuation, consistent with chronic white matter ischemic changes. There is a focus of decreased density and volume loss in the right frontal lobe , new compared to the prior study. However, likely secondary to encephalomalacia from a remote infarct or other insult. Decreased attenuation in the right frontal lobe, centrum semi-ovale is new or more conspicuous compared to the prior study. Acute ischemia is not excluded. Chronic lacunar infarcts in the thalamus bilaterally. No hemorrhage. Ventricles: The ventricular system demonstrates moderate diffuse compensatory enlargement. Bones/joints: Unremarkable. No acute fracture. Soft tissues: Unremarkable. Sinuses: There is a benign mucous retention cyst in the right maxillary sinus. Mastoid air cells: Unremarkable as visualized. No mastoid effusion. IMPRESSION: Age-related atrophy and chronic white matter ischemic changes, with no evidence of an acute intracranial abnormality. Right frontal lobe encephalomalacia, new compared to prior study however likely secondary to chronic infarct. Right frontal lobe/centrum semi-ovale hypodensity is new or more conspicuous compared to the prior study. Acute ischemia is not excluded. Further evaluation with MR of the brain is recommended. - Lab Interpretations Microbiology Results: Microbiology Results 09/02/17 22:40 Blood Blood Culture - Preliminary NO GROWTH AFTER 24 HOURS 09/02/17 22:17 Blood Blood Culture - Preliminary NO GROWTH AFTER 24 HOURS Lab Results: 09/02/17 22:17 09/02/17 22:17 Lab Results 09/02/17 22:17: Sodium 137, Potassium 4.9, Chloride 96 L, Carbon Dioxide 27, Anion Gap 19, BUN 31 H, Creatinine 5.9 H, Est GFR ( Amer) 11, Est GFR ( Non-Af Amer) 9, Random Glucose 116 H, Calcium 9.5, Phosphorus 3.3, Magnesium 2.3 H, Total Bilirubin 0.7, AST 28, ALT 29, Alkaline Phosphatase 58, Troponin I 0.03 D, Total Protein 7.4, Albumin 4.0, Globulin 3.4, Albumin/Globulin Ratio 1.2 09/02/17 22:17: PT 12.5, INR 1.09 H, APTT 33.8 09/02/17 22:17: WBC 15.3 H D, RBC 3.48 L, Hgb 11.5 L, Hct 36.2 L, MCV 104.0 D, MCH 33.0, MCHC 31.8, RDW 16.1 H, Plt Count 175, MPV 10.5, Gran % 77.6 H, Lymph % (Auto) 12.8 L, [place] % (Auto) 9.0 H, Eos % (Auto) 0.4 L, Baso % (Auto) 0.2, Gran # 11.87 H, Lymph # (Auto) 2.0, [place] # (Auto) 1.4 H, Eos # (Auto) 0.1, Baso # (Auto) 0.03 I have reviewed the lab results: Yes - RAD Interpretation Radiology Orders: 09/02/17 HEAD W/O CONTRAST [CT] Stat 09/02/17 21:32 CHEST PORTABLE [RAD] Stat Tar Heater: ED Physician, Radiologist - EKG Interpretation Interpreted by ED Physician: Yes Type: 12 lead EKG - Medication Orders Current Medication Orders: Amlodipine Besylate (Norvasc) 10 mg PO DAILY MADELYN Last Admin: 09/03/17 09:17 Dose: 10 mg MAR Blood Pressure Document 09/03/17 09:17 AJ (Rec: 09/03/17 09:17 AJ [facility] [id number]) Blood Pressure Blood Pressure (100/60-150/90) 142/62 Aspirin (Ecotrin) 81 mg PO DAILY [facility] Last Admin: 09/03/17 09:16 Dose: 81 mg Atorvastatin Calcium (Lipitor) 20 mg PO DIN [facility] Last Admin: 09/03/17 17:30 Dose: 20 mg Famotidine (Pepcid) 40 mg PO HS [facility] Last Admin: 09/03/17 22:15 Dose: 40 mg Heparin Sodium (Porcine) (Heparin) 5,000 units SC Q12 [facility] PRN Reason: Protocol Last Admin: 09/03/17 22:15 Dose: 5,000 units Subcutaneous Administrations Document 09/03/17 22:15 MJ (Rec: 09/03/17 22:15 MJ [id number]) Injection Site MAR Injection Site Right Arm Charges for Administration # of Subcutaneous Administrations 1 Hydralazine HCl (Apresoline) 50 mg PO BID [facility] Last Admin: 09/03/17 17:28 Dose: Not Given Non-Admin Reason: BP Parameters Not Met MAR Pulse and Blood Pressure Document 09/03/17 17:28 AJ (Rec: 09/03/17 17:28 AJ [id number]) Pulse Pulse Rate (60-90) 72 Blood Pressure Blood Pressure (100/60-150/90) 130/55 Ceftriaxone Sodium (Rocephin 1 Gram Ivpb) 1 gm in 100 mls @ 100 mls/hr IVPB DAILY [facility] PRN Reason: Protocol Last Admin: 09/03/17 09:17 Dose: 100 mls/hr eMAR Start Stop Document 09/03/17 09:17 AJ (Rec: 09/03/17 09:17 AJ [id number]) Intravenous Solution Start Date 09/03/17 Start Time 09:17 Vancomycin HCl (Vancomycin 1gm) 1 gm in 250 mls @ 167 mls/hr IVPB MWF [facility] PRN Reason: Protocol Insulin Human Lispro (Humalog Low) 0 units SC ACHS [facility] PRN Reason: Protocol Last Admin: 09/04/17 03:55 Dose: Not Given Non-Admin Reason: Blood Sugar Parameter MAR Blood Glucose Document 09/04/17 03:55 MJ (Rec: 09/04/17 03:[address]) Blood Glucose Finger Stick Blood Glucose (70-120) 83 Subcutaneous Administrations Document 09/04/17 03:55 MJ (Rec: 09/04/17 03:[address]) Charges for Administration # of Subcutaneous Administrations 0 Sevelamer HCl (Renagel) 800 mg PO WM MADELYN Last Admin: 09/03/17 17:29 Dose: 800 mg Vitamin B Complex/Vit C/Folic Acid (Nephro-Luis) 1 tab PO DAILY AMDELYN Last Admin: 09/03/17 09:17 Dose: 1 tab Discontinued Medications Vancomycin HCl (Vancomycin 1gm) 1 gm in 250 mls @ 167 mls/hr IVPB STAT STA PRN Reason: Protocol Stop: 09/02/17 23:01 Last Admin: 09/02/17 22:10 Dose: 167 mls/hr eMAR Start Stop Document 09/02/17 22:10 RG (Rec: 09/02/17 22:21 RG [facility] [id number]) Intravenous Solution Start Date 09/02/17 Start Time 22:10 Vancomycin HCl (Vancomycin 1gm) 1 gm in 250 mls @ 167 mls/hr IVPB Q12H MADELYN PRN Reason: Protocol Last Admin: 09/03/17 02:25 Dose: 167 mls/hr eMAR Start Stop Document 09/03/17 02:25 MJ (Rec: 09/03/17 02:25 MJ [facility] [id number]) Intravenous Solution Start Date 09/03/17 Start Time 02:25 - Scribe Statement The provider has reviewed the documentation as recorded by the Vinny Sanderson Provider Scribe Attestation: All medical record entries made by the Scribtiki were at my direction and personally dictated by me. I have reviewed the chart and agree that the record accurately reflects my personal performance of the history, physical exam, medical decision making, and the department course for this patient. I have also personally directed, reviewed, and agree with the discharge instructions and disposition. Disposition/Present on Arrival - Present on Arrival Any Indicators Present on Arrival: No History of DVT/PE: No History of Uncontrolled Diabetes: No Urinary Catheter: No History of Decub. Ulcer: No History Surgical Site Infection Following: None - Disposition Have Diagnosis and Disposition been Completed?: Yes Diagnosis: Sepsis Disposition: HOSPITALIZED Disposition Time: 23:55 Condition: FAIR
[2017-09-02] MEDS ORDERED: Vancomycin 1gm in NS 250ml 1 GM/250 ML BAG IVPB STA (21:32)
[2017-09-02 22:33] LABS: BASO # 0.03 K/mm3 (0.0-2.0); BASO % 0.2 % (0.0-3.0); EOS # 0.1 (0.0-0.7); EOS % 0.4 % (1.5-5.0); GRAN # 11.87 (1.4-6.5); GRAN % 77.6 % (50.0-68.0); HEMOGLOBIN 11.5 g/dL (14.0-18.0); LYMPH % 12.8 % (22.0-35.0); MEAN CORPUSCULAR HGB CONC 31.8 g/dl (31.0-37.0); MEAN PLATELET VOLUME 10.5 fl (7.0-11.0); MONO # 1.4 (0.1-0.6); RBC 3.48 10^6/uL (3.5-6.1); RED CELL DISTRIBUTION WIDTH 16.1 % (11.5-14.5); WHITE BLOOD COUNT 15.3 10^3/ul (4.5-11.0)
[2017-09-02 22:40] LABS: INR 1.09 (0.93-1.08); PARTIAL THROMBOPLASTIN TIME 33.8 Seconds (25.1-36.5); PROTHROMBIN TIME 12.5 SECONDS (9.4-12.5)
[2017-09-02 22:41] LABS: ALB/GLOB RATIO 1.2 (1.1-1.8); CALCIUM 9.5 mg/dL (8.4-10.5)
[2017-09-02 22:52] LABS: TROPONIN I 0.03 ng/mL
--- NOTE | 2017-09-03 00:24 | CT ---
EXAM: CT Head Without Intravenous Contrast CLINICAL HISTORY: 76 years old, male; Signs and symptoms; Altered mental status/memory loss; Confusion or disorientation; Additional info: AMS TECHNIQUE: Axial computed tomography images of the head/brain without intravenous contrast. All CT scans at this facility use one or more dose reduction techniques, viz.: automated exposure control; ma/kV adjustment per patient size (including targeted exams where dose is matched to indication; i.e. head); or iterative reconstruction technique. Coronal and sagittal reformatted images were created and reviewed. COMPARISON: CT - HEAD W/O CONTRAST 2017-03-27 08:07 FINDINGS: Brain: There is mild diffuse cerebral atrophy present, consistent with this patient's age. There is moderate diffuse heterogeneity of the white matter attenuation, consistent with chronic white matter ischemic changes. There is a focus of decreased density and volume loss in the right frontal lobe, new compared to the prior study. However, likely secondary to encephalomalacia from a remote infarct or other insult. Decreased attenuation in the right frontal lobe, centrum semi-ovale is new or more conspicuous compared to the prior study. Acute ischemia is not excluded. Chronic lacunar infarcts in the thalamus bilaterally. No hemorrhage. Ventricles: The ventricular system demonstrates moderate diffuse compensatory enlargement. Bones/joints: Unremarkable. No acute fracture. Soft tissues: Unremarkable. Sinuses: There is a benign mucous retention cyst in the right maxillary sinus. Mastoid air cells: Unremarkable as visualized. No mastoid effusion. IMPRESSION: Age-related atrophy and chronic white matter ischemic changes, with no evidence of an acute intracranial abnormality. Right frontal lobe encephalomalacia, new compared to prior study however likely secondary to chronic infarct. Right frontal lobe/centrum semi-ovale hypodensity is new or more conspicuous compared to the prior study. Acute ischemia is not excluded. Further evaluation with MR of the brain is recommended.
[2017-09-03] MEDS ORDERED: Vancomycin 1gm in NS 250ml 1 GM/250 ML BAG IVPB SCH (01:30)
[2017-09-03 02:03] VITALS: BMI 18.6
--- NOTE | 2017-09-03 03:29 | CP.PCM.HP ---
History of Present Illness - History of Present Illness History of Present Illness: CC: AMS HPI: 76 AA M with a PMHx CVA (residual L weakness), ESRD on HD (,,Fri), left above knee amputation, anemia, diabetes mellitus, hypertension, cardiac stents [place] [facility] [place] with complaints of AMS. Pt was accompanied by his family at bedside. Pt family states that pt was acting like himself yesterday, however today he has not been acting like his appropriate self. Pt finished his HD session today and returned home, at which time pt went to bed. However, upon awakening, he was confused and "acting weird". Pt at bedside stated that he would not answer questions at times as well as have a blank stare. Pt did not take his medications today and did not eat much on account of a poor appetite today. Pt was seen and examined at bedside. Pt is AAOx1. Pt denied fever, chills, sob, chest pains, abdominal pains, nausea, or vomiting. PMHx: CVA ( 13 years ago with left sided residual weakness), ESRD with hemodialysis (,,Fri), left above knee amputation, anemia, diabetes mellitus, hypertension, cardiac stents, frozen shoulder syndrome, and AMS PSHx : left AKA, history of carotid endarterectomy, cholecystectomy, Right jugular catheter placement for dialysis Allergies: NKDA Family Hx: Noncontributory SHx: Former heavy smoker (~40year pk); Lives with his Joyce Pizano who has POA , denies alcohol or illicit drug use PMD: Dr. Tommy Longo Present on Admission - Present on Admission Any Indicators Present on Admission: No Review of Systems - Review of Systems Review of Systems: as per HPI otherwise negative Past Patient History - Infectious Disease Hx of Infectious Diseases: None - Past Medical History & Family History Past Medical History?: Yes - Past Social History Smoking Status: Former Smoker - CARDIAC Hx Pacemaker: No - PULMONARY Hx Respiratory Disorders: Yes Hx Chronic Obstructive Pulmonary Disease (COPD): Yes - NEUROLOGICAL Hx Paralysis: Yes (left sided s/p cva 2002) - HEENT Hx HEENT Problems: Yes (eyeglasses) - RENAL Hx Renal Failure: Yes (ESRD, CKD) - ENDOCRINE/METABOLIC Hx Diabetes Mellitus Type 2: Yes - HEMATOLOGICAL/ONCOLOGICAL Hx Blood Transfusions: Yes Hx Blood Transfusion Reaction: No - INTEGUMENTARY Hx Dermatological Problems: Yes - MUSCULOSKELETAL/RHEUMATOLOGICAL Hx Musculoskeletal Disorders: Yes (frozen shoulder) - GASTROINTESTINAL Hx Gastrointestinal Disorders: Yes (weight loss poor appetite) Hx Gall Bladder Disease: Yes (Cholecystectomy) - GENITOURINARY/GYNECOLOGICAL Hx Genitourinary Disorders: Yes (oliguria) - PSYCHIATRIC Hx Emotional Abuse: No Hx Physical Abuse: No Hx Substance Use: No - SURGICAL HISTORY Other/Comment: L aka - ANESTHESIA Hx Anesthesia Reactions: No Hx Malignant Hyperthermia: No Meds Allergies/Adverse Reactions: Allergies Allergy/AdvReac Type Severity Reaction Status Date / Time No Known Allergies Allergy Verified 03/25/17 09:45 Physical Exam - Constitutional Appears: No Acute Distress - Head Exam Head Exam: ATRAUMATIC, NORMAL INSPECTION, NORMOCEPHALIC - Eye Exam Eye Exam: EOMI, Normal appearance, PERRL Pupil Exam: NORMAL ACCOMODATION, PERRL - ENT Exam ENT Exam: Mucous Membranes Moist, Normal Exam - Neck Exam Neck exam: Positive for: Normal Inspection - Respiratory Exam Respiratory Exam: Clear to Auscultation Bilateral, NORMAL BREATHING PATTERN Additional comments: RT chest wall port - Cardiovascular Exam Cardiovascular Exam: REGULAR RHYTHM, +S1, +S2 - GI/Abdominal Exam GI & Abdominal Exam: Normal Bowel Sounds, Soft. absent: Tenderness - Extremities Exam Additional comments: L AKA - Neurological Exam Neurological exam: Alert, CN II-XII Intact, Reflexes Normal - Psychiatric Exam Psychiatric exam: Normal Affect, Normal Mood - Skin Skin Exam: Dry, Intact, Normal Color, Warm Results - Vital Signs Recent Vital Signs: Last Vital Signs Temp 99.5 F 09/03/17 01:48 Pulse 77 09/03/17 01:48 Resp 20 09/03/17 01:48 BP 147/59 L 09/03/17 01:48 Pulse Ox 97 09/03/17 00:58 - Labs Result Diagrams: 09/02/17 22:17 09/02/17 22:17 Assessment & Plan - Assessment and Plan (Free Text) Assessment: 76 year old male with past medical history of CVA ( 13 years ago with left sided residual weakness), ESRD with hemodialysis (T,TH,Sat), left above knee amputation, anemia, diabetes mellitus, hypertension, cardiac stents admitted with AMS. AMS EKG reviewed CT head: chronic encephalomalacia, no acute changes MRI fu asa Echo pending Neuro Consulted, Dr. Anderson Lipid Panel pending Hemoglobin A1C pending leukocytosis - rt chest wall port possible source continue rocephin and vancomycin fu blood cx, pct, cxr PT/OT HTN continue home meds continue to monitor and follow ESRD dialysis Friday//Friday last session was today electrolytes reviewed will monitor fu renal function DM Insulin sliding scale low GI/DVT Prophylaxis pepcid hep Seen reviewed and discussed with Dr. White
[2017-09-03 07:18] LABS: BASO # 0.04 K/mm3 (0.0-2.0); BASO % 0.3 % (0.0-3.0); EOS # 0.4 (0.0-0.7); GRAN # 8.97 (1.4-6.5); HEMOGLOBIN 10.8 g/dL (14.0-18.0); LYMPH # 2.2 (1.2-3.4); LYMPH % 16.9 % (22.0-35.0); MEAN CELL VOLUME 104.6 fl (80.0-105.0); MEAN CORPUSCULAR HEMOGLOBIN 32.8 pg (25.0-35.0); MEAN CORPUSCULAR HGB CONC 31.4 g/dl (31.0-37.0); MONO # 1.3 (0.1-0.6); MONO % 9.8 % (1.0-6.0); RBC 3.29 10^6/uL (3.5-6.1); RED CELL DISTRIBUTION WIDTH 16.1 % (11.5-14.5); WHITE BLOOD COUNT 12.8 10^3/ul (4.5-11.0)
[2017-09-03 07:50] LABS: ALB/GLOB RATIO 1.1 (1.1-1.8); ALBUMIN 3.5 g/dL (3.0-4.8); ALT/SGPT 23 U/L (7-56); AST/SGOT 37 U/L (17-59); BLOOD UREA NITROGEN 37 mg/dL (7-21); CALCIUM 8.8 mg/dL (8.4-10.5); GFR AFRICAN-AMERICAN 10; GFR NON-AFRICAN AMERICAN 9; HDL CHOLESTEROL 38 mg/dL (29-60)
[2017-09-03 07:56] LABS: LDL CHOLESTEROL < 30 mg/dL (0-129)
[2017-09-03] MEDS: Insulin Lispro (humaLOG) LOW Coverage SC SCH ×3 (09:15→17:28)
[2017-09-03] MEDS: cefTRIAXone 1 gm 1 GM/100 ML BAG IVPB SCH (09:17)
[2017-09-03] MEDS: Multivitamin Vitamin B Complex (Nephro-Vite) Tab PO SCH (09:17)
--- NOTE | 2017-09-03 09:20 | RAD ---
HISTORY: Sepsis Patient COMPARISON: 06/24/2017 FINDINGS: LUNGS: No active pulmonary disease. PLEURA: No significant pleural effusion identified, no pneumothorax apparent. CARDIOVASCULAR: No radiographic findings to suggest acute or significant cardiovascular disease. Venous access catheter in stable, satisfactory position. OSSEOUS STRUCTURES: No significant abnormalities. VISUALIZED UPPER ABDOMEN: Normal. OTHER FINDINGS: Stable position of left upper extremity and axillary vascular stents. IMPRESSION: No active disease. No significant interval change compared to the prior examination(s).
--- NOTE | 2017-09-03 11:21 | CARD ---
APPROVED REPORT EKG Measurement Heart [id number] [place] 130P9 [id number] <Conclusion> Normal sinus rhythm Left axis deviation Minimal voltage criteria for LVH, may be normal variant ST & T wave abnormality, consider inferolateral ischemia Prolonged QT Abnormal ECG
--- NOTE | 2017-09-03 14:11 | CON ---
DATE: NEPHROLOGY CONSULTATION LOCATION: [facility]. HISTORY OF PRESENT ILLNESS: A 76-year-old male with past medical history of hypertension, diabetes, peripheral vascular disease, status post bilateral carotid endarterectomy, status post left AKA, CVA with left residual weakness and ESRD, on hemodialysis (TTS at [facility] under [facility]). Brought to ED after noticed change in mental status. Nephrology being consulted for ESRD care. The patient was last seen by us yesterday at outpatient dialysis. He had vomited on dialysis and was less coherent than usual in answering questions. Blood pressure had been higher than usual and the patient was also approximately 2 kg above usual weight. Further history from the patient is limited. He does not recall why he was brought to the hospital. Per , he had not been acting like his usual self. Appetite has been decreased for the last several weeks. Otherwise, no other reports of vomiting. The patient currently reports not having had bowel movement in approximately 1 week. Denies any shortness of breath. Denies any pain. Denies any dizziness or lightheadedness. Does report having cough since past several days. PAST MEDICAL HISTORY: As above, status post admission last year for acute pancreatitis. PAST SURGICAL HISTORY: The patient is status post left arm AV graft placement approximately 6 weeks ago. He is following with vascular surgeon in [facility]. SOCIAL HISTORY: Previous smoker. FAMILY HISTORY: Unable to obtain. REVIEW OF SYSTEMS: Limited. CONSTITUTIONAL: Denies fevers or chills. HEENT: Denies change in vision. Denies difficulty swallowing. RESPIRATORY: Cough as above. CARDIOVASCULAR: No chest pain. GI: As per HPI. : Makes scant amount of urine. MUSCULOSKELETAL: Has been bed bound since AKA. VITAL SIGNS: Blood pressure 142/62, heart rate 76, T-max 101.2 last night, respirations 20, O2 sat 97% on room air. PHYSICAL EXAMINATION: GENERAL: No distress. Conversing in his usual short phrases without any distress. HEENT: Moist mucous membranes. Nonicteric. No cervical lymphadenopathy. CHEST: Left basal rales appreciated. Otherwise, lungs clear to auscultation bilaterally. No rhonchi, no wheezes. CARDIOVASCULAR: Heart sounds S1, S2 normal. No murmurs. No gallops. No rubs. GI: Abdomen soft, nontender, nondistended. : No bladder distention. EXTREMITIES: No leg edema. SKIN: Warm. No cyanosis. NEURO: Able to move right upper extremity well, is able to feed himself. PSYCHIATRIC: Normal mood. Not agitated. LABORATORY DATA: This morning, CBC, WBC 12.8, hemoglobin 10.8, hematocrit 34.4, platelets 168. Chemistry panel: Sodium 137, potassium 5, chloride 98, bicarb 29, BUN 37, creatinine 6.4, glucose 84, calcium 8.8, phosphorus 4.2, albumin 3.5. Chest x-ray directly observed. No obvious pulmonary vascular congestion. ASSESSMENT AND PLAN: 1. Altered mental status, etiology unclear. However, with leukocytosis and fever, infectious etiology needs to be ruled out. Awaiting blood cultures. The patient currently on vancomycin and ceftriaxone. Vancomycin needs to be redosed to be given once after every hemodialysis session. No dose reduction for ceftriaxone. 2. End-stage renal disease, on hemodialysis. The patient is receiving routine, Friday, , Friday hemodialysis. Relatively stable electrolyte and volume status on exam. Blood pressure has been elevated and weights have been increased indicating that he may be somewhat volume overloaded; however, trying to avoid hypotension in light of new arteriovenous graft creation to avoid thrombosis of graft. Also, CAT scan is mentioning possibility of acute infarct that cannot be ruled out. We will therefore be very conservative in ultrafiltration as the patient is relatively comfortable and without any volume excess on exam. 3. Hypertension of end-stage renal disease. The patient previously on home blood pressure regimen of amlodipine 10 mg daily, Coreg 25 mg daily, hydralazine 50 mg daily, Imdur 30 mg daily, losartan 100 mg daily. Currently, on amlodipine 10 and hydralazine 50 mg b.i.d. Recommend not to drop blood pressure any further. Should follow up with Neurology for more definite blood pressure parameters if the patient indeed had acute cerebrovascular accident. 4. Anemia secondary to end-stage renal disease. Hemoglobin has been stable at goal for end-stage renal disease (10-11 g). We will continue with outpatient Aranesp per protocol. 5. Chronic kidney disease mineral bone disease. Phosphorus has been well controlled. Continue sevelamer 1 tablet t.i.d. with meals. Thank you for this referral. We will be following up closely. Nathan Meyer MD [facility] # [id number]
--- NOTE | 2017-09-03 16:43 | CP.PCM.CON ---
History of Present Illness - History of Present Illness History of Present Illness: Neurology Consultation Note: Mr. Pizano is a 76-year-old man with a past medical history of CVA about 13 years ago with residual left side weakness, ESRD with hemodialysis (T,,Fri), left above knee amputation, anemia, diabetes mellitus, hypertension, cardiac stents, who went for dialysis yesterday, went to sleep and woke up confused with abnormal behavior. Past Patient History - Infectious Disease Hx of Infectious Diseases: None - Past Medical History & Family History Past Medical History?: Yes - Past Social History Smoking Status: Former Smoker - CARDIAC Hx Pacemaker: No - PULMONARY Hx Respiratory Disorders: Yes Hx Chronic Obstructive Pulmonary Disease (COPD): Yes - NEUROLOGICAL Hx Paralysis: Yes (left sided s/p cva 2002) - HEENT Hx HEENT Problems: Yes (eyeglasses) - RENAL Hx Renal Failure: Yes (ESRD, CKD) - ENDOCRINE/METABOLIC Hx Diabetes Mellitus Type 2: Yes - HEMATOLOGICAL/ONCOLOGICAL Hx Blood Transfusions: Yes Hx Blood Transfusion Reaction: No - INTEGUMENTARY Hx Dermatological Problems: Yes - MUSCULOSKELETAL/RHEUMATOLOGICAL Hx Musculoskeletal Disorders: Yes (frozen shoulder) - GASTROINTESTINAL Hx Gastrointestinal Disorders: Yes (weight loss poor appetite) Hx Gall Bladder Disease: Yes (Cholecystectomy) - GENITOURINARY/GYNECOLOGICAL Hx Genitourinary Disorders: Yes (oliguria) - PSYCHIATRIC Hx Emotional Abuse: No Hx Physical Abuse: No Hx Substance Use: No - SURGICAL HISTORY Other/Comment: L aka - ANESTHESIA Hx Anesthesia Reactions: No Hx Malignant Hyperthermia: No Meds Allergies/Adverse Reactions: Allergies Allergy/AdvReac Type Severity Reaction Status Date / Time No Known Allergies Allergy Verified 03/25/17 09:45 - Medications Medications: Current Medications Amlodipine Besylate (Norvasc) 10 mg PO DAILY [facility] Last Admin: 09/03/17 09:17 Dose: 10 mg Aspirin (Ecotrin) 81 mg PO DAILY [facility] Last Admin: 09/03/17 09:16 Dose: 81 mg Atorvastatin Calcium (Lipitor) 20 mg PO DIN [facility] Famotidine (Pepcid) 40 mg PO HS [facility] Heparin Sodium (Porcine) (Heparin) 5,000 units SC Q12 [facility] PRN Reason: Protocol Last Admin: 09/03/17 09:16 Dose: 5,000 units Hydralazine HCl (Apresoline) 50 mg PO BID [facility] Last Admin: 09/03/17 09:16 Dose: 50 mg Ceftriaxone Sodium (Rocephin 1 Gram Ivpb) 1 gm in 100 mls @ 100 mls/hr IVPB DAILY [facility] PRN Reason: Protocol Last Admin: 09/03/17 09:17 Dose: 100 mls/hr Vancomycin HCl (Vancomycin 1gm) 1 gm in 250 mls @ 167 mls/hr IVPB MWF [facility] PRN Reason: Protocol Insulin Human Lispro (Humalog Low) 0 units SC ACHS [facility] PRN Reason: Protocol Last Admin: 09/03/17 12:58 Dose: Not Given Sevelamer HCl (Renagel) 800 mg PO WM [facility] Last Admin: 09/03/17 12:00 Dose: 800 mg Vitamin B Complex/Vit C/Folic Acid (Nephro-Luis) 1 tab PO DAILY [facility] Last Admin: 09/03/17 09:17 Dose: 1 tab Results - Vital Signs Recent Vital Signs: Last Vital Signs Temp 99.5 F 09/03/17 01:48 Pulse 76 09/03/17 09:16 Resp 20 09/03/17 01:48 BP 142/62 09/03/17 09:17 Pulse Ox 97 09/03/17 00:58 - Labs Result Diagrams: 09/05/17 07:00 09/05/17 06:45 Labs: Laboratory Results - last 24 hr 09/03/17 09/03/17 09/03/17 06:43 06:45 06:45 WBC 12.8 H RBC 3.29 L Hgb 10.8 L Hct 34.4 L MCV 104.6 MCH 32.8 MCHC 31.4 RDW 16.1 H Plt Count 168 MPV 11.0 Gran % 70.0 H Lymph % (Auto) 16.9 L [place] % (Auto) 9.8 H Eos % (Auto) 3.0 Baso % (Auto) 0.3 Gran # 8.97 H Lymph # (Auto) 2.2 [place] # (Auto) 1.3 H Eos # (Auto) 0.4 Baso # (Auto) 0.04 Sodium 137 Potassium 5.0 Chloride 98 Carbon Dioxide 29 Anion Gap 15 BUN 37 H Creatinine 6.4 H Est GFR ( Amer) 10 Est GFR (Non-Af Amer) 9 POC Glucose (mg/dL) 84 Random Glucose 84 Hemoglobin A1c Calcium 8.8 Phosphorus 4.2 Magnesium 2.2 Total Bilirubin 0.6 AST 37 ALT 23 Alkaline Phosphatase 46 Total Protein 6.8 Albumin 3.5 Globulin 3.2 Albumin/Globulin Ratio 1.1 Triglycerides 102 Cholesterol 103 L LDL Cholesterol Direct < 30 HDL Cholesterol 38 09/03/17 09/03/17 09/03/17 06:45 11:12 16:00 WBC RBC Hgb Hct MCV MCH MCHC RDW Plt Count MPV Gran % Lymph % (Auto) [place] % (Auto) Eos % (Auto) Baso % (Auto) Gran # Lymph # (Auto) [place] # (Auto) Eos # (Auto) Baso # (Auto) Sodium Potassium Chloride Carbon Dioxide Anion Gap BUN Creatinine Est GFR ( Amer) Est GFR (Non-Af Amer) POC Glucose (mg/dL) 84 134 H Random Glucose Hemoglobin A1c 4.4 Calcium Phosphorus Magnesium Total Bilirubin AST ALT Alkaline Phosphatase Total Protein Albumin Globulin Albumin/Globulin Ratio Triglycerides Cholesterol LDL Cholesterol Direct HDL Cholesterol Assessment & Plan (1) Acute encephalopathy Assessment and Plan: Likely due to toxic-metabolic causes. EEG was normal. MRI did not show any acute findings. Continue medical management and reconsult if the patient does not improve with treatment of underlying conditions. Thank you. Status: Acute Priority: High
[2017-09-04] MEDS: Insulin Lispro (humaLOG) LOW Coverage SC SCH ×5 (03:55→21:56)
--- NOTE | 2017-09-04 06:57 | CP.PCM.PN ---
<Jensen Neely - Last Filed: 09/04/17 11:53> Subjective - Date & Time of Evaluation Date of Evaluation: 09/04/17 Time of Evaluation: 11:00 - Subjective Subjective: Subjective: Patient seen and examined. No acute events overnight. States he feels more alert and overall more responsive. Underwent HD today without complications. Offers no new complaints at this time. Denies fever, chills, chest pain, shortness of breath, abdominal pain, nausea, vomiting, diarrhea, constipation, and urinary symptoms. 12-point review of systems negative except as indicated in the HPI Physical Examination: - Constitutional Appears: No Acute Distress - Head Exam Head Exam: ATRAUMATIC, NORMAL INSPECTION, NORMOCEPHALIC - Eye Exam Eye Exam: EOMI, Normal appearance, PERRL - ENT Exam ENT Exam: Mucous Membranes Moist, Normal Exam - Neck Exam Neck exam: Positive for: Normal Inspection - Respiratory Exam Respiratory Exam: Clear to Auscultation Bilateral, NORMAL BREATHING PATTERN Additional comments: RT chest wall port - Cardiovascular Exam Cardiovascular Exam: REGULAR RHYTHM, +S1, +S2 - GI/Abdominal Exam GI & Abdominal Exam: Normal Bowel Sounds, Soft. absent: Tenderness - Extremities Exam Additional comments: L AKA - Neurological Exam Neurological exam: Alert, CN II-XII Intact, Reflexes Normal - Psychiatric Exam Psychiatric exam: Normal Affect, Normal Mood - Skin Skin Exam: Dry, Intact, Normal Color, Warm Assessment and Plan: Patient is a 76 year old male with past medical history of CVA ( 13 years ago with left sided residual weakness), ESRD with hemodialysis (T,TH,Sat), left above knee amputation, anemia, diabetes mellitus, hypertension, cardiac stents who was admitted for evaluation and treatment of AMS. AMS - CT head: chronic encephalomalacia, no acute changes - MRI reviewed and appreciated- Severe chronic microvascular changes are seen in the periventricular white matter. There is mild atrophy. No acute intracranial findings - EEG ordered and pending - Neuro Consulted- Dr. Anderson, appreciate input - PT/OT- appreciate inputs - continue asa Leukocytosis - resolved; rt chest wall port possible source- draw cultures - pct 1.08 - continue rocephin and vancomycin- renally dosed - f/u blood cx- negative in the first 24 hours - CXR- No active disease. No significant interval change compared to the prior examination(s). HTN - BP reviewed, trended, and appreciated - continue amlodipine - continue to monitor and follow ESRD - dialysis Friday//Friday - electrolytes reviewed will monitor - f/u renal function DM - Blood glucose reviewed, trended, and appreciated - Insulin sliding scale low Prophylaxis - GI ppx pepcid - DVT ppx hep Patient seen, case discussed with, and plan approved by attending physician, Dr. Conway. Objective - Vital Signs/Intake and Output Vital Signs (last 24 hours): Temp Pulse Resp BP Pulse Ox 99.5 F 72 20 130/55 L 97 09/03/17 01:48 09/03/17 17:28 09/03/17 01:48 09/03/17 17:28 09/03/17 00:58 Intake and Output: 09/03/17 09/04/17 18:59 06:59 Intake Total 600 880 Output Total 2 Balance 600 878 - Medications Medications: Current Medications Amlodipine Besylate (Norvasc) 10 mg PO DAILY [facility] Last Admin: 09/03/17 09:17 Dose: 10 mg Aspirin (Ecotrin) 81 mg PO DAILY [facility] Last Admin: 09/03/17 09:16 Dose: 81 mg Atorvastatin Calcium (Lipitor) 20 mg PO DIN [facility] Last Admin: 09/03/17 17:30 Dose: 20 mg Famotidine (Pepcid) 40 mg PO HS [facility] Last Admin: 09/03/17 22:15 Dose: 40 mg Heparin Sodium (Porcine) (Heparin) 5,000 units SC Q12 [facility] PRN Reason: Protocol Last Admin: 09/03/17 22:15 Dose: 5,000 units Hydralazine HCl (Apresoline) 50 mg PO BID [facility] Last Admin: 09/03/17 17:28 Dose: Not Given Ceftriaxone Sodium (Rocephin 1 Gram Ivpb) 1 gm in 100 mls @ 100 mls/hr IVPB DAILY [facility] PRN Reason: Protocol Last Admin: 09/03/17 09:17 Dose: 100 mls/hr Vancomycin HCl (Vancomycin 1gm) 1 gm in 250 mls @ 167 mls/hr IVPB MWF [facility] PRN Reason: Protocol Insulin Human Lispro (Humalog Low) 0 units SC ACHS [facility] PRN Reason: Protocol Last Admin: 09/04/17 03:55 Dose: Not Given Sevelamer HCl (Renagel) 800 mg PO [facility] Last Admin: 09/03/17 17:29 Dose: 800 mg Vitamin B Complex/Vit C/Folic Acid (Nephro-Luis) 1 tab PO DAILY [facility] Last Admin: 09/03/17 09:17 Dose: 1 tab - Labs Labs: 09/03/17 06:45 09/03/17 06:45 PT 12.5 SECONDS (9.4-12.5) 09/02/17 22:17 INR 1.09 (0.93-1.08) H 09/02/17 22:17 APTT 33.8 Seconds (25.1-36.5) 09/02/17 22:17 <Musa Conway - Last Filed: 09/06/17 14:25> Objective - Vital Signs/Intake and Output Vital Signs (last 24 hours): Temp Pulse Resp BP Pulse Ox 97.7 F 73 18 176/54 H 96 09/05/17 14:00 09/05/17 17:34 09/05/17 14:00 09/05/17 17:34 09/05/17 14:00 - Labs Labs: 09/05/17 07:00 09/05/17 06:45 PT 12.5 SECONDS (9.4-12.5) 09/02/17 22:17 INR 1.09 (0.93-1.08) H 09/02/17 22:17 APTT 33.8 Seconds (25.1-36.5) 09/02/17 22:17 Attending/Attestation - Attestation I have personally seen and examined this patient.: Yes I have fully participated in the care of the patient.: Yes I have reviewed all pertinent clinical information, including history, physical exam and plan: Yes Notes (Text): I have seen and examined the patient at bedside. Agree with the above note dictated by the resident. Vitals, labs and imaging personally reviewed by me. EEG pending. Awaiting neurology consult. Continue empiric IV antibiotics for now. Nephro on board. Upon discharge patient will follow up with Dr Dejesus. Dr Musa conway
[2017-09-04 07:06] LABS: BASO # 0.02 K/mm3 (0.0-2.0); BASO % 0.2 % (0.0-3.0); EOS # 0.7 (0.0-0.7); EOS % 7.1 % (1.5-5.0); GRAN # 5.75 (1.4-6.5); GRAN % 62.1 % (50.0-68.0); HEMOGLOBIN 10.3 g/dL (14.0-18.0); LYMPH # 1.7 (1.2-3.4); LYMPH % 18.5 % (22.0-35.0); MEAN CELL VOLUME 102.5 fl (80.0-105.0); MEAN CORPUSCULAR HEMOGLOBIN 32.2 pg (25.0-35.0); MEAN CORPUSCULAR HGB CONC 31.4 g/dl (31.0-37.0); MEAN PLATELET VOLUME 10.4 fl (7.0-11.0); MONO # 1.1 (0.1-0.6); MONO % 12.1 % (1.0-6.0); RBC 3.2 10^6/uL (3.5-6.1); RED CELL DISTRIBUTION WIDTH 15.5 % (11.5-14.5); WHITE BLOOD COUNT 9.3 10^3/ul (4.5-11.0)
[2017-09-04 07:18] LABS: ALB/GLOB RATIO 1.1 (1.1-1.8); ALBUMIN 3.5 g/dL (3.0-4.8); CALCIUM 9.3 mg/dL (8.4-10.5)
--- NOTE | 2017-09-04 09:29 | MRI ---
PROCEDURE: MRI BRAIN WITHOUT CONTRAST HISTORY: recent stroke COMPARISON: None. TECHNIQUE: Multiplanar, multisequence MR images of the brain were obtained without intravenous contrast enhancement. FINDINGS: HEMORRHAGE: None DWI: No evidence of an acute or early subacute infarction. BRAIN PARENCHYMA: No mass effect or edema. Severe chronic microvascular changes are seen in the periventricular white matter. There is mild atrophy VENTRICLES: Unremarkable. No hydrocephalus. CRANIUM: Unremarkable. ORBITS: Grossly unremarkable. PARANASAL SINUSES/MASTOIDS: Clear VASCULAR SYSTEM: Skull base flow voids intact. OTHER FINDINGS: The report concurs with the preliminary [facility] report IMPRESSION: Severe chronic microvascular changes are seen in the periventricular white matter. There is mild atrophy No acute intracranial findings
[2017-09-04] MEDS: Multivitamin Vitamin B Complex (Nephro-Vite) Tab PO SCH (11:08)
[2017-09-04] MEDS: cefTRIAXone 1 gm 1 GM/100 ML BAG IVPB SCH (11:10)
--- NOTE | 2017-09-04 12:17 | CP.PCM.CON ---
History of Present Illness - History of Present Illness History of Present Illness: 76 year old male with PMH of bilateral foot ulcers and buttocks ulcers, S/P left AKA, peripheral arterial disease, chronic renal failure on hemodialysis, chronic obstructive lung disease, history of cerebrovascular accident, history of methicillin-resistant Staphylococcus aureus bacteremia, history of sensitive Staphylococcus aureus bacteremia, history of cerebrovascular accident with right -sided paresis, coronary artery disease was sent in [place] [facility] [place] of staring episodes and lethargy. The patient is now much more awake. He developed fevers while in the hospital and Infectious diseases consult is requested to further evaluate and manage. Currently he is awake and alert, no fever or chills now, no nausea or vomiting, no chest pain, no sore throat, no abdominal pain, no rhinorrhea, no cough, no diarrhea, no dysuria. Review of Systems - Review of Systems All systems: reviewed and no additional remarkable complaints except (as per HPI ) Past Patient History - Infectious Disease Hx of Infectious Diseases: None - Past Medical History & Family History Past Medical History?: Yes - Past Social History Smoking Status: Former Smoker - CARDIAC Hx Pacemaker: No - PULMONARY Hx Respiratory Disorders: Yes Hx Chronic Obstructive Pulmonary Disease (COPD): Yes - NEUROLOGICAL Hx Paralysis: Yes (left sided s/p cva 2002) - HEENT Hx HEENT Problems: Yes (eyeglasses) - RENAL Hx Renal Failure: Yes (ESRD, CKD) - ENDOCRINE/METABOLIC Hx Diabetes Mellitus Type 2: Yes - HEMATOLOGICAL/ONCOLOGICAL Hx Blood Transfusions: Yes Hx Blood Transfusion Reaction: No - INTEGUMENTARY Hx Dermatological Problems: Yes - MUSCULOSKELETAL/RHEUMATOLOGICAL Hx Musculoskeletal Disorders: Yes (frozen shoulder) - GASTROINTESTINAL Hx Gastrointestinal Disorders: Yes (weight loss poor appetite) Hx Gall Bladder Disease: Yes (Cholecystectomy) - GENITOURINARY/GYNECOLOGICAL Hx Genitourinary Disorders: Yes (oliguria) - PSYCHIATRIC Hx Emotional Abuse: No Hx Physical Abuse: No Hx Substance Use: No - SURGICAL HISTORY Other/Comment: L aka - ANESTHESIA Hx Anesthesia Reactions: No Hx Malignant Hyperthermia: No Meds Allergies/Adverse Reactions: Allergies Allergy/AdvReac Type Severity Reaction Status Date / Time No Known Allergies Allergy Verified 03/25/17 09:45 - Medications Medications: Current Medications Amlodipine Besylate (Norvasc) 10 mg PO DAILY [facility] Last Admin: 09/03/17 09:17 Dose: 10 mg Aspirin (Ecotrin) 81 mg PO DAILY [facility] Last Admin: 09/03/17 09:16 Dose: 81 mg Atorvastatin Calcium (Lipitor) 20 mg PO DIN [facility] Famotidine (Pepcid) 40 mg PO HS [facility] Heparin Sodium (Porcine) (Heparin) 5,000 units SC Q12 [facility] PRN Reason: Protocol Last Admin: 09/03/17 09:16 Dose: 5,000 units Hydralazine HCl (Apresoline) 50 mg PO BID [facility] Last Admin: 09/03/17 09:16 Dose: 50 mg Ceftriaxone Sodium (Rocephin 1 Gram Ivpb) 1 gm in 100 mls @ 100 mls/hr IVPB DAILY [facility] PRN Reason: Protocol Last Admin: 09/03/17 09:17 Dose: 100 mls/hr Vancomycin HCl (Vancomycin 1gm) 1 gm in 250 mls @ 167 mls/hr IVPB MWF [facility] PRN Reason: Protocol Insulin Human Lispro (Humalog Low) 0 units SC ACHS [facility] PRN Reason: Protocol Last Admin: 09/03/17 09:15 Dose: Not Given Sevelamer HCl (Renagel) 800 mg PO WM [facility] Last Admin: 09/03/17 08:26 Dose: 800 mg Vitamin B Complex/Vit C/Folic Acid (Nephro-Luis) 1 tab PO DAILY [facility] Last Admin: 09/03/17 09:17 Dose: 1 tab Physical Exam - Constitutional Appears: Chronically Ill - Head Exam Head Exam: NORMAL INSPECTION - ENT Exam ENT Exam: Mucous Membranes Moist - Neck Exam Neck exam: Negative for: Lymphadenopathy, Meningismus - Respiratory Exam Respiratory Exam: Decreased Breath Sounds - Cardiovascular Exam Cardiovascular Exam: +S1, +S2 Additional comments: right anterior chest wall HD catheter in place, site clean and intact - GI/Abdominal Exam GI & Abdominal Exam: Soft. absent: Tenderness Results - Vital Signs Recent Vital Signs: Last Vital Signs Temp 99.5 F 09/03/17 01:48 Pulse 76 09/03/17 09:16 Resp 20 09/03/17 01:48 BP 142/62 09/03/17 09:17 Pulse Ox 97 09/03/17 00:58 - Labs Result Diagrams: 09/04/17 06:00 09/04/17 06:00 Labs: Laboratory Results - last 24 hr 09/03/17 09/03/17 09/03/17 06:43 06:45 06:45 WBC 12.8 H RBC 3.29 L Hgb 10.8 L Hct 34.4 L MCV 104.6 MCH 32.8 MCHC 31.4 RDW 16.1 H Plt Count 168 MPV 11.0 Gran % 70.0 H Lymph % (Auto) 16.9 L [place] % (Auto) 9.8 H Eos % (Auto) 3.0 Baso % (Auto) 0.3 Gran # 8.97 H Lymph # (Auto) 2.2 [place] # (Auto) 1.3 H Eos # (Auto) 0.4 Baso # (Auto) 0.04 Sodium 137 Potassium 5.0 Chloride 98 Carbon Dioxide 29 Anion Gap 15 BUN 37 H Creatinine 6.4 H Est GFR ( Amer) 10 Est GFR (Non-Af Amer) 9 POC Glucose (mg/dL) 84 Random Glucose 84 Calcium 8.8 Phosphorus 4.2 Magnesium 2.2 Total Bilirubin 0.6 AST 37 ALT 23 Alkaline Phosphatase 46 Total Protein 6.8 Albumin 3.5 Globulin 3.2 Albumin/Globulin Ratio 1.1 Triglycerides 102 Cholesterol 103 L LDL Cholesterol Direct < 30 HDL Cholesterol 38 Assessment & Plan - Assessment and Plan (Free Text) Plan: Assessment SIRS R/O sepsis, r/O bacteremia from HD catheter history of bilateral foot ulcers and buttocks ulcers S/P left AKA POD #1; ulcers are growing ESBL Proteus and Klebsiella leg ischemia and gangrene with probable peripheral arterial disease chronic renal failure on hemodialysis chronic obstructive lung disease history of cerebrovascular accident history of methicillin-resistant Staphylococcus aureus bacteremia history of sensitive Staphylococcus aureus bacteremia history of cerebrovascular accident with right-sided paresis coronary artery disease Plan started on intermittent Vanco and Rocephin and follow up final blood cx results ; CXR does not show pneumonia Will follow clinically
--- NOTE | 2017-09-04 14:37 | US ---
PROCEDURE: Duplex ultrasound arterial venous fistula HISTORY: End-stage renal disease. Recently placed left upper extremity AV graft. Evaluate patency PHYSICIAN(S): Adria Rao MD. FINDINGS: A patent AV graft anastomosis is noted in the left upper arm. There is turbulence at the anastomosis and velocities are elevated. On limited grayscale images the anastomosis appears patent. The proximal graft is patent and normal in size. No additional stenoses are seen. IMPRESSION: 1. Left upper extremity AV graft. New onset elevated velocities are noted at the anastomosis. This could represent 50-99 percent stenosis. AV graft angiography can be performed if clinically indicated.
--- NOTE | 2017-09-04 19:20 | CP.PCM.PN ---
Subjective - Date & Time of Evaluation Date of Evaluation: 09/04/17 Time of Evaluation: 11:00 - Subjective Subjective: Patient denies any complaints; no shortness of breath; tolerating diet; tolerated HD well earlier today; Objective - Vital Signs/Intake and Output Vital Signs (last 24 hours): Temp Pulse Resp BP Pulse Ox 99.5 F 72 20 150/63 97 09/03/17 01:48 09/04/17 18:52 09/03/17 01:48 09/04/17 18:52 09/03/17 00:58 - Medications Medications: Current Medications Amlodipine Besylate (Norvasc) 10 mg PO DAILY [facility] Last Admin: 09/04/17 11:08 Dose: 10 mg Aspirin (Ecotrin) 81 mg PO DAILY [facility] Last Admin: 09/04/17 11:09 Dose: 81 mg Atorvastatin Calcium (Lipitor) 20 mg PO DIN [facility] Last Admin: 09/04/17 18:52 Dose: 20 mg Famotidine (Pepcid) 40 mg PO HS [facility] Last Admin: 09/03/17 22:15 Dose: 40 mg Heparin Sodium (Porcine) (Heparin) 5,000 units SC Q12 [facility] PRN Reason: Protocol Last Admin: 09/04/17 11:09 Dose: 5,000 units Hydralazine HCl (Apresoline) 50 mg PO BID [facility] Last Admin: 09/04/17 18:52 Dose: 50 mg Ceftriaxone Sodium (Rocephin 1 Gram Ivpb) 1 gm in 100 mls @ 100 mls/hr IVPB DAILY [facility] PRN Reason: Protocol Last Admin: 09/04/17 11:10 Dose: 100 mls/hr Vancomycin HCl (Vancomycin 1gm) 1 gm in 250 mls @ 167 mls/hr IVPB MWF [facility] PRN Reason: Protocol Insulin Human Lispro (Humalog Low) 0 units SC ACHS [facility] PRN Reason: Protocol Last Admin: 09/04/17 11:25 Dose: Not Given Sevelamer HCl (Renagel) 800 mg PO WM [facility] Last Admin: 09/04/17 18:52 Dose: 800 mg Vitamin B Complex/Vit C/Folic Acid (Nephro-Luis) 1 tab PO DAILY [facility] Last Admin: 09/04/17 11:08 Dose: 1 tab - Labs Labs: 09/04/17 06:00 04/12/18 06:00 PT 12.5 SECONDS (9.4-12.5) 09/02/17 22:17 INR 1.09 (0.93-1.08) H 09/02/17 22:17 APTT 33.8 Seconds (25.1-36.5) 09/02/17 22:17 - Constitutional Appears: Non-toxic, No Acute Distress - Eye Exam Eye Exam: absent: Scleral icterus - ENT Exam ENT Exam: Mucous Membranes Moist - Respiratory Exam Respiratory Exam: Clear to Ausculation Bilateral. absent: Respiratory Distress - Cardiovascular Exam Cardiovascular Exam: RRR, +S1, +S2 - GI/Abdominal Exam GI & Abdominal Exam: Soft. absent: Distended, Tenderness - Extremities Exam Additional comments: no leg edema; L arm AVG with sharp bruits; - Neurological Exam Neurological Exam: Alert, Awake - Psychiatric Exam Psychiatric exam: Normal Mood. absent: Agitated - Skin Skin Exam: Warm. absent: Cyanosis Assessment and Plan (1) ESRD on hemodialysis Assessment & Plan: Stable electrolyte and volume status; routine HD today; obtaining duplex study of new L arm AVG to evaluate for stenoses; Status: Chronic (2) SIRS (systemic inflammatory response syndrome) Assessment & Plan: Currently afebrile; obtaining BCx from HD catheter; continue abx per ID recs; Status: Acute (3) End stage renal failure on dialysis Status: Acute (4) Anemia in ESRD (end-stage renal disease) Assessment & Plan: Hgb at goal for ESRD (10-11 g), continue with outpatient aranesp per protocol; Status: Chronic (5) Chronic kidney disease-mineral and bone disorder Assessment & Plan: Phos controlled; PTH has been oversuppressed; continue sevelamer 1 tab w/ meals , avoid any Ca supplementation; Status: Chronic (6) Hypertensive CKD, ESRD on dialysis Assessment & Plan: On much more extensive anti-htn regimen at home; will restart meds slowly as BP increases; Status: Chronic
--- NOTE | 2017-09-05 04:55 | CP.PCM.DIS ---
<Jensen Neely - Last Filed: 09/05/17 14:43> Provider - Provider Date of Admission: 09/02/17 23:52 Attending physician: Musa Conway MD Primary care physician: Geeta Dejesus MD Time Spent in preparation of Discharge (in minutes): 45 Diagnosis - Discharge Diagnosis (1) Altered mental status Status: Resolved Priority: Medium (2) ESRD (end stage renal disease) on dialysis Status: Chronic Priority: Medium (3) CVA (cerebral vascular accident) Status: Chronic Priority: Medium (4) Anemia Status: Chronic Priority: Medium (5) HTN (hypertension) Status: Chronic Priority: Medium Hospital Course - Lab Results Lab Results: Most Recent Lab Values WBC 9.3 10^3/ul (4.5-11.0) D 09/04/17 06:00 RBC 3.20 10^6/uL (3.5-6.1) L 09/04/17 06:00 Hgb 10.3 g/dL (14.0-18.0) L 09/04/17 06:00 Hct 32.8 % (42.0-52.0) L 09/04/17 06:00 MCV 102.5 fl (80.0-105.0) 09/04/17 06:00 MCH 32.2 pg (25.0-35.0) 09/04/17 06:00 MCHC 31.4 g/dl (31.0-37.0) 09/04/17 06:00 RDW 15.5 % (11.5-14.5) H 09/04/17 06:00 Plt Count 171 10^3/uL (120.0-450.0) 09/04/17 06:00 MPV 10.4 fl (7.0-11.0) 09/04/17 06:00 Gran % 62.1 % (50.0-68.0) 09/04/17 06:00 Lymph % (Auto) 18.5 % (22.0-35.0) L 09/04/17 06:00 Story % (Auto) 12.1 % (1.0-6.0) H 09/04/17 06:00 Eos % (Auto) 7.1 % (1.5-5.0) H 09/04/17 06:00 Baso % (Auto) 0.2 % (0.0-3.0) 09/04/17 06:00 Gran # 5.75 (1.4-6.5) 09/04/17 06:00 Lymph # (Auto) 1.7 (1.2-3.4) 09/04/17 06:00 Story # (Auto) 1.1 (0.1-0.6) H 09/04/17 06:00 Eos # (Auto) 0.7 (0.0-0.7) 09/04/17 06:00 Baso # (Auto) 0.02 K/mm3 (0.0-2.0) 09/04/17 06:00 PT 12.5 SECONDS (9.4-12.5) 09/02/17 22:17 INR 1.09 (0.93-1.08) H 09/02/17 22:17 APTT 33.8 Seconds (25.1-36.5) 09/02/17 22:17 Sodium 137 mmol/L (132-148) 09/04/17 06:00 Potassium 5.1 mmol/L (3.6-5.0) H 09/04/17 06:00 Chloride 97 mmol/L (98-107) L 09/04/17 06:00 Carbon Dioxide 27 mmol/L (21-33) 09/04/17 06:00 Anion Gap 17 (10-20) 09/04/17 06:00 BUN 53 mg/dL (7-21) H 09/04/17 06:00 Creatinine 8.2 mg/dl (0.8-1.5) H* D 09/04/17 06:00 Est GFR ( Amer) 8 09/04/17 06:00 Est GFR (Non-Af Amer) 6 09/04/17 06:00 POC Glucose (mg/dL) 106 mg/dL (65-110) 09/04/17 21:04 Random Glucose 76 mg/dL (70-110) 09/04/17 06:00 Hemoglobin A1c 4.4 % (4.2-6.5) 09/03/17 06:45 Calcium 9.3 mg/dL (8.4-10.5) 09/04/17 06:00 Phosphorus 5.5 mg/dL (2.5-4.5) H 09/04/17 06:00 Magnesium 2.4 mg/dL (1.7-2.2) H 09/04/17 06:00 Total Bilirubin 0.5 mg/dL (0.2-1.3) 09/04/17 06:00 AST 29 U/L (17-59) 09/04/17 06:00 ALT 18 U/L (7-56) 09/04/17 06:00 Alkaline Phosphatase 56 U/L (38-126) 09/04/17 06:00 Troponin I 0.03 ng/mL D 09/02/17 22:17 Total Protein 6.6 g/dL (5.8-8.3) 09/04/17 06:00 Albumin 3.5 g/dL (3.0-4.8) 09/04/17 06:00 Globulin 3.2 gm/dL 09/04/17 06:00 Albumin/Globulin Ratio 1.1 (1.1-1.8) 09/04/17 06:00 Triglycerides 102 mg/dL (35-160) 09/03/17 06:45 Cholesterol 103 mg/dL (130-200) L 09/03/17 06:45 LDL Cholesterol Direct < 30 mg/dL (0-129) 09/03/17 06:45 HDL Cholesterol 38 mg/dL (29-60) 09/03/17 06:45 Procalcitonin 1.08 NG/ML (0.19-0.49) H 09/03/17 12:00 - Hospital Course Hospital Course: Patient is a 76 year old male with past medical history of CVA ( 13 years ago with left sided residual weakness), ESRD with hemodialysis (,,Fri), left above knee amputation, anemia, diabetes mellitus, hypertension, cardiac stents who was admitted for evaluation and treatment of AMS. With the use of physical examinations, lab work, and imaging the patient was diagnosed with and treated for his altered mental status, along with the patients chronic medical conditions. During their hospital stay the patient was seen by nephrology (Dr. Meyer), neurology (Dr. Anderson), and infectious disease (Dr. Soler) whose recommendations were both appreciated and utilized in the care for this patient. During their hospital stay the patient underwent head without contrast , brain MRI, and Hemodialysis access duplex ultrasound which were reviewed, appreciated, and utilized in the management of the patients clinical course. Head CT without contrast showed age-related atrophy and chronic white matter ischemic changes, with no evidence of an acute intracranial abnormality, right frontal lobe encephalomalacia, new compared to prior study however likely secondary to chronic infarct, right frontal lobe/centrum semi-ovale hypodensity is new or more conspicuous compared to the prior study. The brain MRI showed severe chronic microvascular changes are seen in the periventricular white matter, mild atrophy, and no acute intracranial findings. Hemodialysis access duplex ultrasound shows a left upper extremity AV graft, new onset elevated velocities. Patient was treated with antihypertensive medications, antiplatelets, diabetic medications, antibiotics amongst other empiric/ therapeutic medications. At this time the patient is medically stable for discharge. Patient understands and appreciates discharge plan. Patient instructed to follow up with primary care physicians and referrals within three to five days from discharge. Furthermore, the patient is instructed to take medications as prescribed and to return to emergency room for evaluation of intractable headache, fever, chills, dizziness, chest pain, shortness of breath , abdominal pain, nausea, vomiting, diarrhea, constipation, and urinary symptoms. This is a brief summary of the patients hospital course. Please see patient chart for full details. Discharge Exam - Head Exam Head Exam: NORMAL INSPECTION Discharge Plan - Discharge Medications Prescriptions: Vancomycin [Vancomycin Inj] 1 gm IVPB MWF 7 Days vial - Follow Up Plan Condition: FAIR Disposition: HOME/ ROUTINE Instructions: Hemodialysis (DC), Arteriovenous Fistula for Dialysis, Generalized Weakness (DC), Dialysis Catheter (DC), Sepsis (DC) Additional Instructions: Patient Instructions: Take medications as prescribed. Follow up with PMD and referrals within three to five days from discharge. Return to the emergency room for evaluation of intractable headache, fever, chills, dizziness, chest pain, shortness of breath, abdominal pain, nausea, vomiting, diarrhea, constipation, and urinary symptoms. Referrals: Nathan Meyer MD [Staff Provider] - Geeta Dejesus MD [Primary Care Provider] - <Musa Conway - Last Filed: 09/06/17 14:29> Provider - Provider Date of Admission: 09/02/17 23:52 Attending physician: Musa Conway MD Primary care physician: Geeta Dejesus MD Hospital Course - Lab Results Lab Results: Most Recent Lab Values WBC 6.4 10^3/ul (4.5-11.0) D 09/05/17 07:00 RBC 3.26 10^6/uL (3.5-6.1) L 09/05/17 07:00 Hgb 10.5 g/dL (14.0-18.0) L 09/05/17 07:00 Hct 33.3 % (42.0-52.0) L 09/05/17 07:00 MCV 102.1 fl (80.0-105.0) 09/05/17 07:00 MCH 32.2 pg (25.0-35.0) 09/05/17 07:00 MCHC 31.5 g/dl (31.0-37.0) 09/05/17 07:00 RDW 15.2 % (11.5-14.5) H 09/05/17 07:00 Plt Count 185 10^3/uL (120.0-450.0) 09/05/17 07:00 MPV 10.0 fl (7.0-11.0) 09/05/17 07:00 Gran % 48.9 % (50.0-68.0) L 09/05/17 07:00 Lymph % (Auto) 23.8 % (22.0-35.0) 09/05/17 07:00 Story % (Auto) 17.5 % (1.0-6.0) H 09/05/17 07:00 Eos % (Auto) 9.5 % (1.5-5.0) H 09/05/17 07:00 Baso % (Auto) 0.3 % (0.0-3.0) 09/05/17 07:00 Gran # 3.13 (1.4-6.5) 09/05/17 07:00 Lymph # (Auto) 1.5 (1.2-3.4) 09/05/17 07:00 Story # (Auto) 1.1 (0.1-0.6) H 09/05/17 07:00 Eos # (Auto) 0.6 (0.0-0.7) 09/05/17 07:00 Baso # (Auto) 0.02 K/mm3 (0.0-2.0) 09/05/17 07:00 PT 12.5 SECONDS (9.4-12.5) 09/02/17 22:17 INR 1.09 (0.93-1.08) H 09/02/17 22:17 APTT 33.8 Seconds (25.1-36.5) 09/02/17 22:17 Sodium 137 mmol/L (132-148) 09/05/17 06:45 Potassium 4.1 mmol/L (3.6-5.0) 09/05/17 06:45 Chloride 96 mmol/L (98-107) L 09/05/17 06:45 Carbon Dioxide 29 mmol/L (21-33) 09/05/17 06:45 Anion Gap 17 (10-20) 09/05/17 06:45 BUN 33 mg/dL (7-21) H 09/05/17 06:45 Creatinine 5.6 mg/dl (0.8-1.5) H 09/05/17 06:45 Est GFR ( Amer) 12 09/05/17 06:45 Est GFR (Non-Af Amer) 10 09/05/17 06:45 POC Glucose (mg/dL) 105 mg/dL (65-110) 09/05/17 16:03 Random Glucose 91 mg/dL (70-110) 09/05/17 06:45 Hemoglobin A1c 4.4 % (4.2-6.5) 09/03/17 06:45 Calcium 9.2 mg/dL (8.4-10.5) 09/05/17 06:45 Phosphorus 4.0 mg/dL (2.5-4.5) 09/05/17 06:45 Magnesium 2.3 mg/dL (1.7-2.2) H 09/05/17 06:45 Total Bilirubin 0.4 mg/dL (0.2-1.3) 09/05/17 06:45 AST 24 U/L (17-59) 09/05/17 06:45 ALT 26 U/L (7-56) 09/05/17 06:45 Alkaline Phosphatase 63 U/L (38-126) 09/05/17 06:45 Troponin I 0.03 ng/mL D 09/02/17 22:17 Total Protein 6.7 g/dL (5.8-8.3) 09/05/17 06:45 Albumin 3.5 g/dL (3.0-4.8) 09/05/17 06:45 Globulin 3.2 gm/dL 09/05/17 06:45 Albumin/Globulin Ratio 1.1 (1.1-1.8) 09/05/17 06:45 Triglycerides 102 mg/dL (35-160) 09/03/17 06:45 Cholesterol 103 mg/dL (130-200) L 09/03/17 06:45 LDL Cholesterol Direct < 30 mg/dL (0-129) 09/03/17 06:45 HDL Cholesterol 38 mg/dL (29-60) 09/03/17 06:45 Procalcitonin 1.08 NG/ML (0.19-0.49) H 09/03/17 12:00 Influenza Typ A,B (EIA) Negative for flu a/b (NEGATIVE) 09/05/17 09:00 Attending/Attestation - Attestation I have personally seen and examined this patient.: Yes I have fully participated in the care of the patient.: Yes I have reviewed all pertinent clinical information, including history, physical exam and plan: Yes Notes (Text): I have seen and examined the patient at bedside. Agree with the above note dictated by the resident. Vitals, labs and imaging personally reviewed by me. All consults appreciated. Will follow up on blood cultures. Upon discharge patient will follow up with Dr Dejesus. Dr Musa conway
[2017-09-05 07:24] LABS: BASO # 0.02 K/mm3 (0.0-2.0); BASO % 0.3 % (0.0-3.0); EOS # 0.6 (0.0-0.7); EOS % 9.5 % (1.5-5.0); GRAN # 3.13 (1.4-6.5); GRAN % 48.9 % (50.0-68.0); HEMOGLOBIN 10.5 g/dL (14.0-18.0); LYMPH # 1.5 (1.2-3.4); LYMPH % 23.8 % (22.0-35.0); MEAN CELL VOLUME 102.1 fl (80.0-105.0); MEAN CORPUSCULAR HEMOGLOBIN 32.2 pg (25.0-35.0); MEAN CORPUSCULAR HGB CONC 31.5 g/dl (31.0-37.0); MONO # 1.1 (0.1-0.6); MONO % 17.5 % (1.0-6.0); RBC 3.26 10^6/uL (3.5-6.1); RED CELL DISTRIBUTION WIDTH 15.2 % (11.5-14.5); WHITE BLOOD COUNT 6.4 10^3/ul (4.5-11.0)
[2017-09-05 07:31] LABS: ALB/GLOB RATIO 1.1 (1.1-1.8); ALBUMIN 3.5 g/dL (3.0-4.8); CALCIUM 9.2 mg/dL (8.4-10.5)
[2017-09-05] MEDS: Insulin Lispro (humaLOG) LOW Coverage SC SCH ×3 (07:53→16:35)
[2017-09-05 08:18] VITALS: RESP 18
[2017-09-05] MEDS: Multivitamin Vitamin B Complex (Nephro-Vite) Tab PO SCH (09:52)
[2017-09-05] MEDS: cefTRIAXone 1 gm 1 GM/100 ML BAG IVPB SCH (09:54)
[2017-09-05] MEDS ORDERED: Vancomycin 1gm in NS 250ml 1 GM/250 ML BAG IVPB SCH (10:00)
[2017-09-05 17:38] VITALS: BP 176/54; PULSE 73
--- NOTE | 2017-09-05 18:23 | CP.PCM.PN ---
Subjective - Date & Time of Evaluation Date of Evaluation: 09/05/17 Time of Evaluation: 11:05 - Subjective Subjective: Comfortable in bed, no fevers, not in distress, no pain along the HD catheter site. Objective - Vital Signs/Intake and Output Vital Signs (last 24 hours): Temp Pulse Resp BP Pulse Ox 98.4 F 96 H 18 177/79 H 97 09/05/17 08:49 09/05/17 08:49 09/05/17 08:49 09/05/17 08:49 09/03/17 00:58 Intake and Output: 09/05/17 09/05/17 06:59 18:59 Intake Total 660 Balance 660 - Medications Medications: Current Medications Amlodipine Besylate (Norvasc) 10 mg PO DAILY [facility] Last Admin: 09/04/17 11:08 Dose: 10 mg Aspirin (Ecotrin) 81 mg PO DAILY [facility] Last Admin: 09/04/17 11:09 Dose: 81 mg Atorvastatin Calcium (Lipitor) 20 mg PO DIN [facility] Last Admin: 09/04/17 18:52 Dose: 20 mg Carvedilol (Coreg) 12.5 mg PO BID [facility] Famotidine (Pepcid) 40 mg PO HS [facility] Last Admin: 09/04/17 22:00 Dose: 40 mg Heparin Sodium (Porcine) (Heparin) 5,000 units SC Q12 [facility] PRN Reason: Protocol Last Admin: 09/04/17 22:00 Dose: 5,000 units Hydralazine HCl (Apresoline) 50 mg PO BID [facility] Last Admin: 09/05/17 05:54 Dose: 50 mg Ceftriaxone Sodium (Rocephin 1 Gram Ivpb) 1 gm in 100 mls @ 100 mls/hr IVPB DAILY [facility] PRN Reason: Protocol Last Admin: 09/04/17 11:10 Dose: 100 mls/hr Vancomycin HCl (Vancomycin 1gm) 1 gm in 250 mls @ 167 mls/hr IVPB MWF [facility] PRN Reason: Protocol Insulin Human Lispro (Humalog Low) 0 units SC ACHS [facility] PRN Reason: Protocol Last Admin: 09/04/17 21:56 Dose: Not Given Losartan Potassium (Cozaar) 100 mg PO DAILY [facility] Sevelamer HCl (Renagel) 800 mg PO [facility] Last Admin: 09/05/17 08:13 Dose: 800 mg Vitamin B Complex/Vit C/Folic Acid (Nephro-Luis) 1 tab PO DAILY [facility] Last Admin: 09/04/17 11:08 Dose: 1 tab - Labs Labs: 09/05/17 07:00 09/05/17 06:45 PT 12.5 SECONDS (9.4-12.5) 09/02/17 22:17 INR 1.09 (0.93-1.08) H 09/02/17 22:17 APTT 33.8 Seconds (25.1-36.5) 09/02/17 22:17 - Constitutional Appears: Non-toxic, Chronically Ill - Head Exam Head Exam: NORMAL INSPECTION - ENT Exam ENT Exam: Mucous Membranes Moist - Neck Exam Neck Exam: absent: Meningismus - Respiratory Exam Respiratory Exam: Decreased Breath Sounds - Cardiovascular Exam Cardiovascular Exam: +S1, +S2 - GI/Abdominal Exam GI & Abdominal Exam: Soft. absent: Tenderness Assessment and Plan - Assessment and Plan (Free Text) Plan: Assessment SIRS R/O sepsis, R/O bacteremia from HD catheter history of bilateral foot ulcers and buttocks ulcers S/P left AKA; ulcers are grew ESBL Proteus and Klebsiella leg ischemia and gangrene with probable peripheral arterial disease chronic renal failure on hemodialysis chronic obstructive lung disease history of cerebrovascular accident history of methicillin-resistant Staphylococcus aureus bacteremia history of sensitive Staphylococcus aureus bacteremia history of cerebrovascular accident with right-sided paresis coronary artery disease Plan currently on intermittent Vanco and Rocephin; blood cx are negative so far - will d/c Rocephin - follow up final culture results; CXR does not show pneumonia Will continue to follow clinically
[2017-09-05 18:32] VITALS: TEMP 97.7; O2SAT 96
--- NOTE | 2017-09-05 20:07 | CP.PCM.PN ---
Objective - Vital Signs/Intake and Output Vital Signs (last 24 hours): Temp Pulse Resp BP Pulse Ox 97.7 F 73 18 176/54 H 96 09/05/17 14:00 09/05/17 17:34 09/05/17 14:00 09/05/17 17:34 09/05/17 14:00 Intake and Output: 09/05/17 09/06/17 18:59 06:59 Intake Total 540 Output Total 300 Balance 240 - Medications Medications: Current Medications Amlodipine Besylate (Norvasc) 10 mg PO DAILY [facility] Last Admin: 09/05/17 09:52 Dose: 10 mg Aspirin (Ecotrin) 81 mg PO DAILY [facility] Last Admin: 09/05/17 09:51 Dose: 81 mg Atorvastatin Calcium (Lipitor) 20 mg PO DIN [facility] Last Admin: 09/05/17 17:35 Dose: 20 mg Carvedilol (Coreg) 12.5 mg PO ONCE ONE Stop: 09/05/17 20:07 Carvedilol (Coreg) 25 mg PO BID [facility] Famotidine (Pepcid) 40 mg PO HS [facility] Last Admin: 09/04/17 22:00 Dose: 40 mg Heparin Sodium (Porcine) (Heparin) 5,000 units SC Q12 [facility] PRN Reason: Protocol Last Admin: 09/05/17 09:51 Dose: 5,000 units Hydralazine HCl (Apresoline) 50 mg PO BID [facility] Last Admin: 09/05/17 11:18 Dose: Not Given Ceftriaxone Sodium (Rocephin 1 Gram Ivpb) 1 gm in 100 mls @ 100 mls/hr IVPB DAILY [facility] PRN Reason: Protocol Last Admin: 09/05/17 09:54 Dose: 100 mls/hr Vancomycin HCl (Vancomycin 1gm) 1 gm in 250 mls @ 167 mls/hr IVPB MWF [facility] PRN Reason: Protocol Last Admin: 09/05/17 11:18 Dose: 167 mls/hr Insulin Human Lispro (Humalog Low) 0 units SC ACHS [facility] PRN Reason: Protocol Last Admin: 09/05/17 16:35 Dose: Not Given Losartan Potassium (Cozaar) 100 mg PO DAILY [facility] Last Admin: 09/05/17 09:52 Dose: 100 mg Sevelamer HCl (Renagel) 800 mg PO WM [facility] Last Admin: 09/05/17 16:55 Dose: 800 mg Vitamin B Complex/Vit C/Folic Acid (Nephro-Luis) 1 tab PO DAILY [facility] Last Admin: 09/05/17 09:52 Dose: 1 tab - Labs Labs: 09/05/17 07:00 09/05/17 06:45 PT 12.5 SECONDS (9.4-12.5) 09/02/17 22:17 INR 1.09 (0.93-1.08) H 09/02/17 22:17 APTT 33.8 Seconds (25.1-36.5) 09/02/17 22:17 Assessment and Plan (1) ESRD on hemodialysis Status: Chronic (2) SIRS (systemic inflammatory response syndrome) Status: Acute (3) End stage renal failure on dialysis Status: Acute (4) Anemia in ESRD (end-stage renal disease) Status: Chronic (5) Chronic kidney disease-mineral and bone disorder Status: Chronic (6) Hypertensive CKD, ESRD on dialysis Status: Chronic
== END 2017-09-05 20:59 | disposition home or self-care (01) | DRG 947 ==
LOC: ED 20:52 → ERH 23:52 → 5RSO 09-03 01:49
PROVIDERS: ADMIT Internal Medicine; ATTEND Hospitalist
PROC: 5A1D70Z Performance of Urinary Filtration, Intermittent, Less than 6 Hours Per Day (ICD-10-PCS; principal; 2017-09-04)
DX: R41.82 Altered mental status, unspecified (principal); N18.6 End stage renal disease; R65.10 Systemic inflammatory response syndrome (SIRS) of non-infectious origin without acute organ dysfunction; I12.0 Hypertensive chronic kidney disease with stage 5 chronic kidney disease or end stage renal disease; I69.354 Hemiplegia and hemiparesis following cerebral infarction affecting left non-dominant side; Z99.2 Dependence on renal dialysis; D63.1 Anemia in chronic kidney disease; Z89.612 Acquired absence of left leg above knee; Z87.891 Personal history of nicotine dependence; E11.22 Type 2 diabetes mellitus with diabetic chronic kidney disease; G93.89 Other specified disorders of brain; E11.52 Type 2 diabetes mellitus with diabetic peripheral angiopathy with gangrene; M75.00 Adhesive capsulitis of unspecified shoulder; J44.9 Chronic obstructive pulmonary disease, unspecified; I25.10 Atherosclerotic heart disease of native coronary artery without angina pectoris; Z95.5 Presence of coronary angioplasty implant and graft; Z86.14 Personal history of Methicillin resistant Staphylococcus aureus infection

== ENCOUNTER 2018-02-02 18:47 | Observation (INO) | payer MEDICARE, BC ==
--- NOTE | 2018-02-02 20:30 | ED PDOC ---
Arrival/HPI - General Chief Complaint: Headache Time Seen by Provider: 02/02/18 19:18 Historian: Patient - History of Present Illness Narrative History of Present Illness (Text): 02/02/18 19:30 A 77 year old male, whose past medical history includes CVA with residual left- sided weakness, ESRD on hemodialysis, left AKA, anemia, diabetes, hypertension, CAD with cardiac stents, and bilateral carotid endarterectomy, presents to the emergency department complaining of headache discomfort starting earlier today. Patient describes as pain to top of his head. Patient denies any head trauma, nausea, vomiting, neck pain, back pain, fever, chills, or any other complaints at this time. PMD: Dr. Dejesus Past Medical History - Provider Review Nursing Documentation Reviewed: Yes - Infectious Disease Hx of Infectious Diseases: None - Cardiac Hx Cardiac Disorders: Yes Hx Hypertension: Yes - Pulmonary Hx Respiratory Disorders: Yes Hx Chronic Obstructive Pulmonary Disease (COPD): Yes - Neurological Hx Neurological Disorder: Yes HX Cerebrovascular Accident: Yes Hx Paralysis: Yes - HEENT Hx HEENT Disorder: Yes (eyeglasses) - Renal Hx Renal Disorder: Yes Hx Renal Failure: Yes (ESRD, CKD) - Endocrine/Metabolic Hx Endocrine Disorders: Yes Hx Diabetes Mellitus Type 2: Yes - Hematological/Oncological Hx Blood Disorders: Yes Hx Blood Transfusions: Yes - Integumentary Hx Dermatological Disorder: Yes - Musculoskeletal/Rheumatological Hx Musculoskeletal Disorders: Yes (frozen shoulder) - Gastrointestinal Hx Gastrointestinal Disorders: Yes Hx Gall Bladder Disease: Yes (Cholecystectomy) - Genitourinary/Gynecological Hx Genitourinary Disorders: Yes (oliguria) - Psychiatric Hx Substance Use: No - Surgical History Hx Cholecystectomy: Yes Other/Comment: L aka - Anesthesia Hx Malignant Hyperthermia: No - Suicidal Assessment Feels Threatened In Home Enviroment: No Family/Social History - Physician Review Nursing Documentation Reviewed: Yes Family/Social History: No Known Family HX Smoking Status: Former Smoker Hx Alcohol Use: No Hx Substance Use: No Allergies/Home Meds Allergies/Adverse Reactions: Allergies No Known Allergies Allergy (Verified 02/02/18 19:25) Home Medications: Home Meds Medication Instructions Recorded Confirmed Famotidine [Pepcid] 20 mg PO HS 03/25/17 09/02/17 Folic Acid/Vit B Complex and C 1 tab PO DAILY 03/25/17 09/02/17 [Prabha-Luis Tablet] Multivit-Min/FA/Lycopen/Lutein 1 tab PO DAILY 03/25/17 09/02/17 [Centrum Silver Tablet] Sevelamer [Renagel] 800 mg PO TID 03/25/17 09/02/17 Prilosec Otc 20 mg DAILY 05/16/17 09/02/17 Review of Systems - Physician Review All systems were reviewed & negative as marked: Yes - Review of Systems Constitutional: absent: Fevers, Night Sweats Gastrointestinal: absent: Nausea, Vomiting Musculoskeletal: absent: Back Pain, Neck Pain Neurological: Headache. absent: Dizziness Physical Exam Vital Signs Reviewed: Yes Vital Signs Temp Pulse Resp BP Pulse Ox 02/02/18 22:36 60 18 142/53 L 98 02/02/18 19:01 98.0 F 60 18 126/48 L 98 Temperature: Afebrile Blood Pressure: Normal Pulse: Regular Respiratory Rate: Normal Appearance: Positive for: Well-Appearing, Non-Toxic, Comfortable Pain Distress: None Mental Status: Positive for: Alert and Oriented X 3 - Systems Exam Head: Present: Atraumatic, Normocephalic Pupils: Present: PERRL Extroacular Muscles: Present: EOMI Conjunctiva: Present: Normal Mouth: Present: Moist Mucous Membranes Neck: Present: Normal Range of Motion (Supple). No: Meningeal Signs, MIDLINE TENDERNESS, Paraspinal Tenderness Respiratory/Chest: Present: Clear to Auscultation, Good Air Exchange. No: Respiratory Distress, Accessory Muscle Use Cardiovascular: Present: Regular Rate and Rhythm, Normal S1, S2. No: Murmurs Abdomen: No: Tenderness, Distention, Peritoneal Signs Back: Present: Normal Inspection. No: CVA Tenderness, Midline Tenderness, Paraspinal Tenderness Upper Extremity: Present: Normal Inspection. No: Cyanosis, Edema Lower Extremity: Present: NORMAL PULSES, Normal ROM, Neurovascularly Intact, Capillary Refill < 2 s, Other (left AKA). No: Edema, Tenderness, Swelling, Erythema, Deformity, Temperature Abnormalties Neurological: Present: GCS=15, CN II-XII Intact, Speech Normal, Motor Func Grossly Intact, Normal Sensory Function, Normal Cerebellar Funct. No: Other ( no focal/sensrory, or motor deficits.) Skin: Present: Warm, Dry, Normal Color. No: Rashes Psychiatric: Present: Alert, Oriented x 3, Normal Insight, Normal Concentration Medical Decision Making ED Course and Treatment: 02/02/18 19:33 Impression: 77 year old female with headache discomfort. Plan: -- Head CT -- Tylenol -- Reassess and disposition Prior Visits: Notes and results from previous visits were reviewed. Patient last seen here in the emergency department on 09/02/2017 for AMS. Patient was admitted for sepsis. Progress Notes: 02/02/18 22:00 CT Head shows: Brain: There is cerebral and cerebellar cortical volume loss compatible with the patient's age. Scattered low density areas in the periventricular white matter and basal ganglia probably reflect chronic small vessel ischemic changes. Vascular calcifications are present. There is no intracranial hemorrhage or mass. No abnormal extra-axial or parenchymal fluid collections. Posterior fossa is unremarkable. Ventricles: The ventricles and basilar cisterns are prominant likely related to chronic volume loss. Bones/joints: . No acute fracture. Sinuses: Mild mucosal thickening in the ethmoid sinuses present. Mucous retention cyst in the maxillary sinus on the right. Mastoid air cells: Normal as visualized. No mastoid effusion. Soft tissues: Normal. IMPRESSION: 1. Chronic changes probably related to small vessel ischemia present. 2. No acute intracranial process present. Dictated and Authenticated by: Mima Head MD 02/02/2018 9:48 PM Eastern Time ([place] & [place]) 02/03/18 01:[address] Abdi, who is aware and agrees with plan. Accepts pt in to her service. Pt will go to [facility] observation for intractable headache. Requests Dr. Valera and Dr. Nash on consult. - Lab Interpretations Lab Results: 02/02/18 23:47 02/02/18 23:47 Lab Results 02/02/18 23:47: WBC 7.7 D, RBC 3.15 L, Hgb 9.8 L, Hct 31.0 L, MCV 98.4 D, MCH 31.1, MCHC 31.6, RDW 15.3 H, Plt Count 228, MPV 10.3 02/02/18 23:47: Sodium 142, Potassium 4.7, Chloride 98, Carbon Dioxide 29, Anion Gap 20, BUN 76 H, Creatinine 10.9 H* D, Est GFR ( Amer) 6, Est GFR (Non-Af Amer) 5, Random Glucose 129 H, Calcium 9.4, Total Bilirubin 0.4, AST 30 , ALT 20, Alkaline Phosphatase 72, Total Protein 7.6, Albumin 4.3, Globulin 3.4 , Albumin/Globulin Ratio 1.3 I have reviewed the lab results: Yes - RAD Interpretation Radiology Orders: 02/02/18 19:33 HEAD W/O CONTRAST [CT] Stat Server: Radiologist - Medication Orders Current Medication Orders: Discontinued Medications Acetaminophen (Tylenol 325mg Tab) 650 mg PO STAT STA Stop: 02/02/18 19:32 Last Admin: 02/02/18 19:50 Dose: 650 mg MAR Pain/Vitals Document 02/02/18 19:50 HI (Rec: 02/02/18 19:50 HI [id number]) Pain Reassessment Is This A Pain ReAssessment? No Sleep Is patient sleeping during reassessment? No Presence of Pain Presence of Pain Yes Location Pain Location Body Mail List Librarian Tramadol HCl (Ultram) 50 mg PO STAT STA Stop: 02/02/18 23:25 Last Admin: 02/02/18 23:54 Dose: 50 mg MAR Pain Assessment Document 02/02/18 23:54 AD (Rec: 02/02/18 23:56 AD [id number]) Pain Reassessment Is this a pain reassessment? No Presence of Pain Presence of Pain Yes Pain Scale Used Pain Scale Used Numeric Description Intensity of Pain at present 8 - Scribe Statement The provider has reviewed the documentation as recorded by the Vinny Harding Provider Scribe Provider Scribe Attestation: All medical record entries made by the Diomedes[place]tiki were at my direction and personally dictated by me. I have reviewed the chart and agree that the record accurately reflects my personal performance of the history, physical exam, medical decision making, and the department course for this patient. I have also personally directed, reviewed, and agree with the discharge instructions and disposition. Disposition/Present on Arrival - Present on Arrival Any Indicators Present on Arrival: No History of DVT/PE: No History of Uncontrolled Diabetes: No Urinary Catheter: No History of Decub. Ulcer: No History Surgical Site Infection Following: None - Disposition Have Diagnosis and Disposition been Completed?: Yes Diagnosis: ESRD (end stage renal disease) on dialysis, Intractable headache Disposition: HOSPITALIZED Disposition Time: :19 Condition: STABLE Referrals: Geeta Dejesus MD [Primary Care Provider] - Follow up with primary Forms: [employer] (Yoruba)
[2018-02-03 00:06] LABS: HEMOGLOBIN 9.8 g/dL (14.0-18.0); MEAN CORPUSCULAR HEMOGLOBIN 31.1 pg (25.0-35.0); MEAN CORPUSCULAR HGB CONC 31.6 g/dl (31.0-37.0); MEAN PLATELET VOLUME 10.3 fl (7.0-11.0); RBC 3.15 10^6/uL (3.5-6.1); RED CELL DISTRIBUTION WIDTH 15.3 % (11.5-14.5); WHITE BLOOD COUNT 7.7 10^3/ul (4.5-11.0)
[2018-02-03 00:08] LABS: MEAN CELL VOLUME 98.4 fl (80.0-105.0)
[2018-02-03 00:23] LABS: ALB/GLOB RATIO 1.3 (1.1-1.8); ALBUMIN 4.3 g/dL (3.0-4.8); CALCIUM 9.4 mg/dL (8.4-10.5)
[2018-02-03 03:13] VITALS: BMI 19.3
--- NOTE | 2018-02-03 08:13 | CT ---
Date of service: 02/02/2018 PROCEDURE: CT HEAD WITHOUT CONTRAST. HISTORY: headache COMPARISON: None available. TECHNIQUE: Axial computed tomography images were obtained through the head/brain without intravenous contrast. Radiation dose: Total exam DLP = 916 mGy-cm. This CT exam was performed using one or more of the following dose reduction techniques: Automated exposure control, adjustment of the mA and/or kV according to patient size, and/or use of iterative reconstruction technique. FINDINGS: HEMORRHAGE: No intracranial hemorrhage. BRAIN: No mass effect or edema. Severe chronic microvascular changes are seen in the periventricular white matter. Microvascular changes are also seen in the thalami and basal ganglia bilaterally. VENTRICLES: Unremarkable. No hydrocephalus. CALVARIUM: Unremarkable. PARANASAL SINUSES: Unremarkable as visualized. No significant inflammatory changes. MASTOID AIR CELLS: Unremarkable as visualized. No inflammatory changes. OTHER FINDINGS: The report concurs with the preliminary [facility] report IMPRESSION: No acute findings
[2018-02-03 08:53] VITALS: RESP 18
--- NOTE | 2018-02-03 10:44 | CP.PCM.CON ---
History of Present Illness - History of Present Illness History of Present Illness: Huy Singh D.O. PGY-3, Internal Medicine Resident, Nephrology Consultation Note 77 year old male with a PMH of CVA with residual left sided weakness, vasculopath, anemia, DM, HTN, CAD w/ stents, and ESRD on HD who presents for the worst headache of his life. Patient on Wednesday 01/31 had a thrombectomy of his left AVG with angioplasty due to a clot. Patient states that he had a severe headache, worst in his life all day yesterday but that now it is gone since he was admitted. States doing better overall. No acute complaints. States eating well. Review of Systems - Constitutional Constitutional: absent: Anorexia, Chills - EENT Eyes: absent: Floaters, Irritation Ears: absent: Ear Discharge, Ear Pain Nose/Mouth/Throat: absent: Sinus Pain, Sinus Pressure - Cardiovascular Cardiovascular: absent: Chest Pain, Edema - Respiratory Respiratory: absent: Cough, Dyspnea - Gastrointestinal Gastrointestinal: absent: Nausea, Vomiting - Musculoskeletal Musculoskeletal: absent: Stiffness, Tingling - Integumentary Integumentary: absent: Rash, Jaundice - Neurological Neurological: Confusion, Headaches Past Patient History - Infectious Disease Hx of Infectious Diseases: None - Past Medical History & Family History Past Medical History?: Yes - Past Social History Smoking Status: Former Smoker - CARDIAC Hx Cardiac Disorders: Yes Hx Hypertension: Yes - PULMONARY Hx Respiratory Disorders: Yes Hx Chronic Obstructive Pulmonary Disease (COPD): Yes - NEUROLOGICAL Hx Neurological Disorder: Yes HX Cerebrovascular Accident: Yes - HEENT Hx HEENT Problems: Yes (eyeglasses) - RENAL Hx Chronic Kidney Disease: Yes Hx Renal Failure: Yes (ESRD, CKD) - ENDOCRINE/METABOLIC Hx Endocrine Disorders: Yes Hx Diabetes Mellitus Type 2: Yes - HEMATOLOGICAL/ONCOLOGICAL Hx Blood Disorders: Yes - INTEGUMENTARY Hx Dermatological Problems: Yes - MUSCULOSKELETAL/RHEUMATOLOGICAL Hx Musculoskeletal Disorders: Yes (frozen shoulder) Hx Falls: No - GASTROINTESTINAL Hx Gastrointestinal Disorders: Yes Hx Gall Bladder Disease: Yes (Cholecystectomy) - GENITOURINARY/GYNECOLOGICAL Hx Genitourinary Disorders: Yes (oliguria) - PSYCHIATRIC Hx Emotional Abuse: No Hx Physical Abuse: No - SURGICAL HISTORY Hx Cholecystectomy: Yes Other/Comment: L aka - ANESTHESIA Hx Malignant Hyperthermia: No Meds Allergies/Adverse Reactions: Allergies Allergy/AdvReac Type Severity Reaction Status Date / Time No Known Allergies Allergy Verified 02/02/18 19:25 - Medications Medications: Current Medications Amlodipine Besylate (Norvasc) 10 mg PO DAILY [facility] Last Admin: 02/03/18 10:32 Dose: Not Given Carvedilol (Coreg) 25 mg PO BID [facility] Last Admin: 02/03/18 10:32 Dose: Not Given Hydralazine HCl (Apresoline) 50 mg PO BID [facility] Last Admin: 02/03/18 10:31 Dose: Not Given Sevelamer HCl (Renagel) 800 mg PO ACTID [facility] Physical Exam - Constitutional Appears: Non-toxic, No Acute Distress - Head Exam Head Exam: ATRAUMATIC, NORMOCEPHALIC - Eye Exam Eye Exam: absent: Conjunctival injection, Scleral icterus - ENT Exam ENT Exam: Mucous Membranes Moist - Neck Exam Neck exam: Negative for: Tenderness - Respiratory Exam Respiratory Exam: Clear to Auscultation Bilateral. absent: Rales, Rhonchi, Wheezes - Cardiovascular Exam Cardiovascular Exam: +S1, +S2 - GI/Abdominal Exam GI & Abdominal Exam: Soft. absent: Distended - Extremities Exam Additional comments: left AKA - Neurological Exam Additional comments: AAOx3, at times confused - Psychiatric Exam Psychiatric exam: Normal Affect, Normal Mood - Skin Skin Exam: Dry, Warm Results - Vital Signs Recent Vital Signs: Last Vital Signs Temp 98.2 F 02/03/18 06:00 Pulse 57 L 02/03/18 06:00 Resp 18 02/03/18 06:00 BP 161/54 H 02/03/18 06:00 Pulse Ox 94 L 02/03/18 06:00 - Labs Result Diagrams: 02/02/18 23:47 02/02/18 23:47 Assessment & Plan - Assessment and Plan (Free Text) Assessment: 77 year old male with a PMH of CVA with residual left sided weakness, vasculopath, anemia, DM, HTN, CAD w/ stents, and ESRD on HD who presents for the worst headache of his life. Plan: Severe headache ESRD on HD T/T/S Chronic macrocytic normochromic anemia HTN HD today Maintain euvolemia Re-started home sevelamer, hydralazine, coreg, and amlodipine Re-started nephrovite Encouraged ambulation Recommend neurology evaluation We will continue to follow with you Patient was seen and examined and case was discussed at length with attending physician - Date & Time Date: 02/03/18 Time: 10:46
[2018-02-03] MEDS: Multivitamin Vitamin B Complex (Nephro-Vite) Tab PO SCH (13:00)
[2018-02-03] MEDS ORDERED: Apap-Butalbital-Caffeine 325-50-40mg Tab PO SCH (13:30)
--- NOTE | 2018-02-03 13:50 | CP.PCM.PCO ---
Physician Communication Note - Physician Communication Note Physician Communication Note: will be on fioricet with headache, headache is better today.
--- NOTE | 2018-02-03 13:54 | CON ---
DATE: 02/03/2018 HISTORY OF PRESENT ILLNESS: This is a 77-year-old black male with past medical history of CVA with residual left-sided weakness; anemia; diabetes; hypertension and coronary artery disease with stents; end-stage renal disease, on hemodialysis. Came here with headache and of 9/10 intensity, which is getting better now. CAT scan of the head was done, which was reported negative. No bleeding. The patient is going for dialysis and called to evaluate the patient. PAST MEDICAL HISTORY: Diabetes, hypertension, end-stage renal disease, CVA with residual left-sided weakness. REVIEW OF SYSTEMS: Ten-point review of systems was negative except headache. ALLERGIES: NO KNOWN DRUG ALLERGY. PHYSICAL EXAMINATION: VITAL SIGNS: Blood pressure 160/54. HEENT: Normocephalic, atraumatic. NECK: Supple. NEUROLOGIC: Awake, orientated to self and place. Cranial nerves II through XII were tested. Pupils reactive. EOM intact. Visual field full. No facial asymmetry. Tongue midline. Motor examination: Residual weakness on the left side and status post above-knee amputation. Moves the right side okay. Deep tendon reflexes 1+. Right plantar downgoing. Sensory appears intact. Cerebellar gait deferred. LABORATORY DATA: Labs show chronic microcytic anemia and WBC 7.7, hemoglobin 9.8, hematocrit 31 and platelet 228. Sodium 142, potassium 4.7, chloride 98, CO2 of 29, glucose 129, BUN 76, creatinine 10.9. IMPRESSION: A 77-year-old black male with past medical history of cerebrovascular accident with residual left-sided weakness, diabetes, hypertension, coronary artery disease, end-stage renal disease and left above-knee amputation. Came with severe headache, which is better now. PLAN: The patient is going for dialysis. Continue present management. We will follow up. Oniel Nash MD
[2018-02-03] MEDS: Apap-Butalbital-Caffeine 325-50-40mg Tab PO SCH (23:00)
[2018-02-04] MEDS: Apap-Butalbital-Caffeine 325-50-40mg Tab PO SCH ×3 (05:46→21:19)
[2018-02-04 07:12] LABS: HEMOGLOBIN 10.2 g/dL (14.0-18.0); MEAN CELL VOLUME 97.8 fl (80.0-105.0); MEAN CORPUSCULAR HGB CONC 32.7 g/dl (31.0-37.0); MEAN PLATELET VOLUME 9.8 fl (7.0-11.0); RBC 3.19 10^6/uL (3.5-6.1); RED CELL DISTRIBUTION WIDTH 15.2 % (11.5-14.5); WHITE BLOOD COUNT 5.4 10^3/ul (4.5-11.0)
[2018-02-04 07:14] LABS: IRON 92 ug/dL (45-180)
[2018-02-04 07:18] LABS: BLOOD UREA NITROGEN 45 mg/dL (7-21); CALCIUM 9.1 mg/dL (8.4-10.5); GFR NON-AFRICAN AMERICAN 7; HDL CHOLESTEROL 39 mg/dL (29-60)
[2018-02-04 07:24] LABS: % IRON SATURATION 38 % (20-55); TOTAL IRON BINDING CAPACITY 243 ug/dL (261-462)
[2018-02-04 07:34] LABS: LDL CHOLESTEROL 39 mg/dL (0-129)
[2018-02-04] MEDS: Multivitamin Vitamin B Complex (Nephro-Vite) Tab PO SCH (08:11)
[2018-02-04 09:33] VITALS: O2SAT 96
--- NOTE | 2018-02-04 10:02 | CP.PCM.PN ---
<Huy Singh - Last Filed: 02/04/18 15:19> Subjective - Date & Time of Evaluation Date of Evaluation: 02/04/18 Time of Evaluation: 09:56 - Subjective Subjective: Huy Singh D.O. PGY-3, Internal Medicine Resident, Nephrology Progress Note 77 year old male with a PMH of CVA with residual left sided weakness, vasculopath, anemia, DM, HTN, CAD w/ stents, and ESRD on HD who presents for the worst headache of his life. Patient seen and examined at bedside. Headache is better No issues with HD yesterday. Good appetite. Objective - Vital Signs/Intake and Output Vital Signs (last 24 hours): Temp Pulse Resp BP Pulse Ox 98 F 58 L 18 166/60 H 96 02/04/18 06:00 02/04/18 06:00 02/04/18 06:00 02/04/18 06:00 02/04/18 06:00 Intake and Output: 02/04/18 02/04/18 06:59 18:59 Intake Total 660 Balance 660 - Medications Medications: Current Medications Acetaminophen/Butalbital/Caffeine (Fioricet) 1 tab PO Q8 [facility] Stop: 02/05/18 22:00 Last Admin: 02/04/18 05:46 Dose: 1 tab Amlodipine Besylate (Norvasc) 10 mg PO DAILY [facility] Last Admin: 02/03/18 10:32 Dose: Not Given Carvedilol (Coreg) 25 mg PO BID [facility] Last Admin: 02/03/18 18:25 Dose: 25 mg Hydralazine HCl (Apresoline) 50 mg PO BID [facility] Last Admin: 02/03/18 18:24 Dose: 50 mg Sevelamer HCl (Renagel) 800 mg PO ACTID [facility] Last Admin: 02/04/18 08:11 Dose: 800 mg Vitamin B Complex/Vit C/Folic Acid (Nephro-Luis) 1 tab PO 0800 [facility] Last Admin: 02/04/18 08:11 Dose: 1 tab - Labs Labs: 02/04/18 06:30 02/04/18 06:30 - Constitutional Appears: Non-toxic, No Acute Distress - Head Exam Head Exam: ATRAUMATIC, NORMOCEPHALIC - Eye Exam Eye Exam: absent: Conjunctival injection, Scleral icterus - ENT Exam ENT Exam: Mucous Membranes Moist - Neck Exam Neck exam: Negative for: Tenderness - Respiratory Exam Respiratory Exam: Clear to Auscultation Bilateral. absent: Rales, Rhonchi, Wheezes - Cardiovascular Exam Cardiovascular Exam: +S1, +S2 - GI/Abdominal Exam GI & Abdominal Exam: Soft. absent: Distended - Extremities Exam Additional comments: left AKA - Neurological Exam Additional comments: AAOx3, at times confused - Psychiatric Exam Psychiatric exam: Normal Affect, Normal Mood - Skin Skin Exam: Dry, Warm Assessment and Plan - Assessment and Plan (Free Text) Assessment: 77 year old male with a PMH of CVA with residual left sided weakness, vasculopath, anemia, DM, HTN, CAD w/ stents, and ESRD on HD who presents for the worst headache of his life. Plan: Severe headache - resolved ESRD on HD T/T/S Chronic macrocytic normochromic anemia HTN Tolerated HD well yesterday Maintain euvolemia Continue home sevelamer, hydralazine, coreg, amlodipine, and nephrovite Neurology following Patient was seen and examined and case was discussed at length with attending physician <Nathan Meyer - Last Filed: 02/04/18 19:54> Objective - Vital Signs/Intake and Output Vital Signs (last 24 hours): Temp Pulse Resp BP Pulse Ox 98.4 F 53 L 18 127/55 L 96 02/04/18 14:00 02/04/18 17:08 02/04/18 14:00 02/04/18 17:08 02/04/18 14:00 Intake and Output: 02/04/18 02/05/18 18:59 06:59 Intake Total 360 Balance 360 - Medications Medications: Current Medications Acetaminophen/Butalbital/Caffeine (Fioricet) 1 tab PO Q8 [facility] Stop: 02/05/18 22:00 Last Admin: 02/04/18 14:13 Dose: 1 tab Amlodipine Besylate (Norvasc) 10 mg PO DAILY [facility] Last Admin: 02/04/18 10:19 Dose: 10 mg Carvedilol (Coreg) 25 mg PO BID [facility] Last Admin: 02/04/18 17:08 Dose: 25 mg Hydralazine HCl (Apresoline) 50 mg PO BID [facility] Last Admin: 02/04/18 17:08 Dose: 50 mg Sevelamer HCl (Renagel) 800 mg PO ACTID [facility] Last Admin: 02/04/18 17:08 Dose: 800 mg Vitamin B Complex/Vit C/Folic Acid (Nephro-Luis) 1 tab PO 0800 [facility] Last Admin: 02/04/18 08:11 Dose: 1 tab - Labs Labs: 02/04/18 06:30 02/04/18 06:30 Attending/Attestation - Attestation I have personally seen and examined this patient.: Yes I have fully participated in the care of the patient.: Yes I have reviewed all pertinent clinical information, including history, physical exam and plan: Yes Notes (Text): Patient seen and examined; I agree with the resident's note as above with the following additions/edits: Patient being managed by our outpatient ESRD service, admitted with severe headache that has subsequently resolved; Stable volume and electrolyte status; will continue HD as outpatient per routine ; patient is also s/p declot of AVG 4 days ago; good bruit today; will defer removal of sutures to access center; HTN of ESRD; BP elevated this morning but didn't receive all meds yesterday; should continue home meds even on HD days; Anemia of CKD; hgb around goal; will continue with EPO per outpatient protocol; CKD Mineral bone disorder; chronically with over-suppressed PTH; continuing non- Ca phos binder sevelamer 1 tab w/ meals; 02/04/18 19:47
--- NOTE | 2018-02-04 10:11 | HP ---
Patient was seen and examined on the bedside on 02/03/2018. CHIEF COMPLAINT: Headache. HISTORY OF PRESENT ILLNESS: Mr. Wayne Pizano is a 77-year-old male whose past medical history includes CVA with residual left-sided weakness; end-stage renal disease, on hemodialysis; left AKA; anemia; diabetes; hypertension; coronary artery disease; cardiac stenting and bilateral carotid endarterectomy, came to the Emergency Department complaining of intractable headache. was sitting on the bedside with her family. She explained to me that he never has that bad headache. Patient described the pain is on the top of the head. Denies any head trauma, nausea, vomiting, or diarrhea. No neck pain. No fever. No chills. Neurology consult called, Dr. Nash, gave Fioricet. Now, patient is feeling a little bit better. PAST MEDICAL HISTORY: As above, hypertension; COPD; CVA; history of paralysis; end-stage renal disease, on hemodialysis 3 times a week, frozen shoulder, cholecystectomy, polyuria, malignant hypertension. FAMILY HISTORY: Father and mother, noncontributory. HABITS: No smoking, no drug, no ethanol. ALLERGIES: PATIENT IS NOT ALLERGIC WITH ANY MEDICATION. HOME MEDICATIONS: Pepcid, folic acid, multivitamins, Renagel, Prilosec. REVIEW OF SYSTEMS: Patient was seen and examined on the bedside, looking comfortable. No nausea, vomiting, or diarrhea. No hematuria or hematochezia. Headache is a little bit better. No fever. No chills. No dysuria. No hematuria. No back pain. No neck pain. PHYSICAL EXAMINATION: VITAL SIGNS: Temperature 98, pulse 60, respiratory rate 18, blood pressure 126/48, pulse oximetry 98%. HEENT: Head: Normocephalic and atraumatic. Eyes: PERRLA. Extraocular muscles intact. Conjunctivae clear. Nose patent. Mucous membranes moist. NECK: Supple. No carotid bruit. No JVD or thyromegaly. CHEST: Bilaterally symmetrical. HEART: S1 and S2 positive. LUNGS: Clear to auscultation. ABDOMEN: Soft, nontender. No organomegaly. EXTREMITIES: Upper extremities, no edema, no cyanosis. Lower extremities, normal pulses, has left AKA. No swelling, no edema. NEUROLOGIC: Patient is awake, alert. Cranial nerves II through XII grossly intact. Oriented x3. LABORATORY DATA: White blood cells 7.7, hemoglobin 9.8, hematocrit 31, platelets 228. Sodium 142, potassium 4.7, BUN 76, creatinine 10.9, glucose 129. ASSESSMENT AND PLAN: Mr. Wayne Pizano is a 77-year-old male with anemia; renal insufficiency, on hemodialysis, got dialysis today; hyperglycemia; came with intractable headache. CAT scan of the head done, unremarkable as visualized, no inflammatory changes. Seen by Dr. Huy Singh. History of cerebrovascular accident with residual left-sided weakness; vasculopathic; diabetes mellitus; hypertension; coronary artery disease with cardiac stenting; end-stage renal disease, on hemodialysis 3 times a week; history of anorexia and chills. He never has had this type of headache in the life. This was worst headache of life. Restarted home Sevelamer, hydralazine, Coreg, and amlodipine, restarted Nephro vitamins. Encourage ambulation. As per Dr. Manolo Nash Fioricet and the patient got better with Fioricet. Discussion done with . We will observe 24 hours. History of coronary artery disease, amputation above knee. Length of time discussion done with the patient's . Treatment plan made. We will follow up. Elizabeth Abdi MD
[2018-02-04 14:19] LABS: FOLATE > 20.0 ng/mL
[2018-02-04 16:17] VITALS: BP 127/55; PULSE 53; TEMP 98.4
--- NOTE | 2018-02-04 16:37 | US ---
PROCEDURE: Bilateral carotid artery duplex ultrasound HISTORY: Carotid stenosis PHYSICIAN(S): Adria Rao MD. TECHNIQUE: Duplex sonography and color-flow Doppler were used to evaluate the carotid bifurcations and limited segments of the vertebral arteries bilaterally. FINDINGS: There is moderate to extensive heterogeneous echogenic plaque noted at the carotid bifurcations bilaterally. There is a self expanding stent in the proximal right internal carotid artery. The peak systolic velocity in the proximal right internal carotid artery is 77 cm/sec. This corresponds to a 20 to 39% proximal right ICA stenosis. Normal systolic velocities are noted in the proximal right external carotid artery. There is antegrade flow in the right vertebral artery. The peak systolic velocity in the proximal left internal carotid artery is 68 cm/sec. This corresponds to a 20 to 39% proximal left ICA stenosis. Normal systolic velocities are noted in the proximal left external carotid artery. There is antegrade flow in the left vertebral artery. IMPRESSION: 1. Widely patent proximal right ICA stent 2. 20-39 percent proximal left ICA stenosis 3. Antegrade flow in both vertebral arteries.
== END 2018-02-04 22:30 | disposition home health service (06) ==
LOC: ED 18:47 → ERH 02-03 01:15 → 5RNO 02-03 02:07
PROVIDERS: ADMIT Internal Medicine; ATTEND Internal Medicine
DX: R51 Headache (principal); I12.0 Hypertensive chronic kidney disease with stage 5 chronic kidney disease or end stage renal disease; N18.6 End stage renal disease; I25.10 Atherosclerotic heart disease of native coronary artery without angina pectoris; E11.65 Type 2 diabetes mellitus with hyperglycemia; Z99.2 Dependence on renal dialysis; I69.354 Hemiplegia and hemiparesis following cerebral infarction affecting left non-dominant side; J44.9 Chronic obstructive pulmonary disease, unspecified; E11.22 Type 2 diabetes mellitus with diabetic chronic kidney disease; D63.1 Anemia in chronic kidney disease; Z87.891 Personal history of nicotine dependence; Z90.49 Acquired absence of other specified parts of digestive tract; Z89.612 Acquired absence of left leg above knee; Z95.5 Presence of coronary angioplasty implant and graft
CPT/HCPCS: 36415; 70450; 80048; 80053; 80061; 82607; 82746; 83036; 83540; 83550; 84443; 85027; 93880; 99285; G0378